=== PATIENT | female | born 1950 | race Caucasian/White ===

== ENCOUNTER 2020-07-26 09:54 | Day surgery (SDC) | payer MEDICARE, SELFPAY ==
[2020-07-10 13:29] VITALS: BMI 21.4
[2020-07-14 14:13] VITALS: BMI 22.0
[2020-07-24 08:47] VITALS: BMI 21.3
[2020-07-26] VITALS (8 sets, daily range): BP systolic 109–133; BP diastolic 67–86; PULSE 56–107; RESP 16; TEMP 36.2–36.5; O2SAT 98–100; BMI 21.1
[2020-07-26] MEDS: Lactated Ringers 1,000 ML 100 ML IV (10:18)
--- NOTE | 2020-07-26 11:14 | PCM.HP.BLA ---
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 Required: No Accompanied by: Is patient in pain?: No Allergies Penicillins [PCN] Allergy (Verified 07/14/20 14:15) Rash gluten Adverse Reaction (Verified 07/14/20 14:15) Diarrhea milk Adverse Reaction (Verified 07/14/20 14:15) Diarrhea Medications Aspirin [Aspirin, Baby] 81 mg PO DAILY@0800 07/10/20 [History Confirmed 07/14/20] Psyllium [Metamucil] 1 packet PO DAILY 07/10/20 [History Confirmed 07/14/20] PFSH Medical History Carpal tunnel syndrome on right (Acute) Gluten intolerance (Acute) Tongue cancer (Acute) Surgical History H/O tubal ligation (Acute) Family History Mother Heart disease Colon cancer Sister Gallbladder cancer, carcinoma Father Diabetes Social History (Updated 07/14/20 @ 14:[address] Keshawn Cisneros MD) Smoking Status: Never smoker HPI HPI HPI: SHERLYN RODRIGUEZ, is a 70 F who presents to the office today for HPI HPI HPI: SHERLYN RODRIGUEZ, is a 70 F who presents to the office today for PEG discussion. The patient has had a hemiglossectomy for tongue cancer and is due to start radiation. She was sent here for PEG tube in case she develops dysphagia during her treatment. ROS General General: Yes weight change; no appetite, fatigue, colon cancer, breast cancer or weakness HEENT HEENT: Yes difficulty swallowing, eye surgery and swollen glands; no eye injury or hoarseness Endo Endocrine: Yes thyroid disease; no diabetes mellitus, thyroid cancer, Hair loss, heat intolerance or cold intolerance Skin Skin: No rash or changing moles Breast Breast: No left breast lump, right breast lump, nipple discharge, breast pain, abnormal mammogram, abnormal US or breast enlargement Musc Musculoskeletal: No back problems, arthritis, rheumatoid arthritis, gout or joint pain Cardio Cardiovascular: No murmur, pacemaker, heart disease, atrial fibrillation, high blood pressure, heart attack, heart stent, palpitations, shortness of breat with exertion or chest pain Psych Psychiatric: No depression, anxiety or hearing voices Resp Respiratory: No shortness of breath, No sleep apnea, No cough, No COPD, No asthma, No emphysema, No wheezing Gastro Gastrointestinal: No abdominal pain, No nausea or vomiting, No diarrhea, No constipation, No blood in stool, No acid reflux, Yes hemorrhoids, No ulcers, No gallbladder problem, No black,tarry stools Chase Hematologic: No blood thinners, No blood disorders, No bleeding, Yes anemia, No blood clots Neuro Neurologic: No system reviewed and no additional complaints, except as docu, No as per HPI, No abnormal walking, No abnormal hearing, No abnormal movements, No abnormal speech, No behavioral changes, No burning sensations, No confusion, No seizure-like activity, No unsteadiness, No dizziness, No localized weakness, No frequent falls, No headache(s), No lack of coordination, No loss of vision, No memory loss, No numbness, No other visual disturbances, No radiating pain, No restless legs, No sensory deficit, No fainting, No tingling, No tremor(s), No weakness, No other Exam Const General: cooperative Orientation: alert, oriented x3 Chest Breast Palpation: No nipple discharge Resp Effort & Inspection: normal respiratory effort Auscultation: clear to auscultation bilaterally Cardio Rate: regular rate Rhythm: regular rhythm Heart Sounds: no murmurs GI Inspection: non-distended Palpation: soft, nontender Assessment & Plan Problems 1. Tongue cancer C02.9 Plan Patient has tongue cancer and is going to start radiation after having surgery. Patient was sent here for discussion of PEG tube. I discussed the placement of PEG tube as well as the presence and removal of PEG tube. I discussed the risks of the procedure including not limited to bleeding, infection, underlying bowel injury, dislodgment of PEG tube. The patient understands all the risks and is willing to proceed with PEG placement. I explained endoscopy in detail to the patient. I explained the risks including but not limited to stroke or heart attack with anesthesia, perforation of the GI tract, bleeding, infection. I explained that any of these could necessitate further emergency surgery. The patient understands and all questions were answered sufficiently. The patient wishes to proceed with procedure. We discussed the current risks associated with COVID-19. While it is understood that there is a community spread of COVID-19, the risk of gaetano COVID-19 while at [facility] ([facility]) is very low; however, the risk cannot be completely mitigated because of the community spread of the disease. We discussed in detail the risk of exposure to and/or potential harm posed by the COVID-19 virus with having a surgery/procedure at this time versus the risk of delaying the surgery/procedure. It is not possible to know either the risk of delaying the surgery or procedure or chance of getting an infection with perfect accuracy, but a joint decision was made to proceed at this time with the scheduled surgery/procedure as indicated on the consent form. Patient was notified that we will need to comply with any screening or testing [facility] wishes to perform or that surgery may be delayed for any positive results. Keshawn Cisneros MD Pager: [facility] [address] [place] [address], [address] [place] [address] Office: I have re-examined the patient. There are no clinical changes since date of exam.
--- NOTE | 2020-07-26 11:18 | OP.CCLET_ITS ---
07/26/2020 Benigno Brandt Re : Upper GI endoscopy procedure for Kay Herring Dear Karly This procedure was performed on Sunday, July 26, 2020. My impressions and recommendations are as follows: Impressions : - An externally removable PEG placement was successfully completed. - No specimens collected. Recommendations : - Discharge patient to home. - Resume previous diet. - Continue present medications. - Resume aspirin at prior dose tomorrow. - Please follow the post-PEG recommendations including: external bolster 1 cm from abdominal wall and change dressing on top of bumper daily. My findings are described in the full procedure note, which is enclosed. If I can be of further assistance, please feel free to contact me at Doctor phone number(s): , Work: . Sincerely, Keshawn Cisneros MD 07/26/2020 11:18:11 AM This report has been signed electronically.
--- NOTE | 2020-07-26 11:18 | OP.EGD_ITS ---
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 Refer to note in patient chart for documentation of history and physical. Complications: No immediate complications. Estimated blood loss: Minimal. Procedure: Pre-Anesthesia Assessment: - Prior to the procedure, a History and Physical was performed, and patient medications and allergies were reviewed. The patient's tolerance of previous anesthesia was also reviewed. The risks and benefits of the procedure and the sedation options and risks were discussed with the patient. All questions were answered, and informed consent was obtained. Prior Anticoagulants: The patient has taken no previous anticoagulant or antiplatelet agents. After reviewing the risks and benefits, the patient was deemed in satisfactory condition to undergo the procedure. After obtaining informed consent, the endoscope was passed under direct vision. Throughout the procedure, the patient's blood pressure, pulse, and oxygen saturations were monitored continuously. The gastroscope was introduced through the mouth, and advanced to the second part of duodenum. The upper GI endoscopy was accomplished without difficulty. The patient tolerated the procedure well. Scope In: 11:03:59 AM Scope Out: 11:12:43 AM Total Procedure Duration Time 0 hours 8 minutes 44 seconds Findings: The patient was placed in the supine position for PEG placement. The stomach was insufflated to appose gastric and abdominal granados. A site was located with excellent transillumination and manual external pressure for placement. The abdominal wall was marked and prepped in a sterile manner. The area was anesthetized with 5 mL of 0.5% lidocaine. The trocar needle was introduced through the abdominal wall and into the stomach under direct endoscopic view. A snare was introduced through the endoscope and opened in the gastric lumen. The guide wire was passed through the trocar and into the open snare. The snare was closed around the guide wire. The endoscope and snare were removed, pulling the wire out through the mouth. A skin incision was made at the site of needle insertion. The externally removable 20 Fr EndoVive Safety gastrostomy tube was lubricated. The G-tube was tied to the guide wire and pulled through the mouth and into the stomach. The trocar needle was removed, and the gastrostomy tube was pulled out from the stomach through the skin. The external bumper was attached to the gastrostomy tube, and the tube was cut to remove the guide wire. The final position of the gastrostomy tube was confirmed by relook endoscopy, and skin marking noted to be 3 cm at the external bumper. The final tension and compression of the abdominal wall by the PEG tube and external bumper were checked and revealed that the bumper was loose and lightly touching the skin and that the PEG balloon was moderately tight and mildly compressing the stomach. The feeding tube was capped, and the tube site cleaned and dressed. Impression: - An externally removable PEG placement was successfully completed. - No specimens collected. Recommendation: - Discharge patient to home. - Resume previous diet. - Continue present medications. - Resume aspirin at prior dose tomorrow. - Please follow the post-PEG recommendations including: external bolster 1 cm from abdominal wall and change dressing on top of bumper daily. 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 All rights reserved. The codes documented in this report are preliminary and upon head sampler review may be revised to meet current compliance requirements. Keshawn Cisneros MD 07/26/2020 11:18:11 AM This report has been signed electronically. Number of Addenda: 0 Note Initiated On: 07/26/2020 10:54 AM
[2020-07-26] MEDS: Acetaminophen 650 MG/20 ML UDC PO (12:52)
--- NOTE | 2020-07-26 12:52 | SUR.PHASEII ---
pt. with acute onset of l.shoulder pain which occurs at home per pt. and . massaged area as he does at home. liquid tylenol given by rn. pt. sitting up in chair at this time.
== END 2020-07-26 13:51 | disposition home or self-care (01) ==
LOC: EN 09:55 → AC 09:55
PROVIDERS: Anesthesiology; PCP Internal Medicine; Referring Provider Internal Medicine; Visit Provider Surgery
PROC: 0DJ08ZZ Inspection of Upper Intestinal Tract, Via Natural or Artificial Opening Endoscopic (ICD-10-PCS; CPT 43235; principal; 2020-07-26 10:55)
DX: Z43.1 Encounter for attention to gastrostomy (principal); R13.12 Dysphagia, oropharyngeal phase; Z11.59 Encounter for screening for other viral diseases; R63.3 Feeding difficulties; Z79.82 Long term (current) use of aspirin; Z79.899 Other long term (current) drug therapy; C02.9 Malignant neoplasm of tongue, unspecified; K90.41 Non-celiac gluten sensitivity
CPT/HCPCS: 43246; 87635; 97802; C9803; J7120; A4216; U0003

== ENCOUNTER → 2020-11-01 12:38 | Outpatient (CLI) | payer MEDICARE, SELFPAY ==
[2020-07-10 13:29] VITALS: BMI 21.4
[2020-09-25 08:28] VITALS: BMI 20.1
--- NOTE | 2020-11-01 18:20 | SP.MBSS_ITS ---
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 09/06/2020) with concurrent weekly carboplatin. 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 09/06/2020) with concurrent weekly carboplatin. status post percutaneous endoscopic gastrostomy (PEG) tube placement (07/24/2020), status post tracheostomy tube placement (06/19/2020; since removed), status post esophagoscopy, left forearm flap reconstruction, split thickness skin graft, gluten intolerance, cataract removal, carpal tunnel syndrome on right - Penetration-Aspiration Scale Penetration-Aspiration Scale: OBJECTIVE ASSESSMENT OF SWALLOW FUNCTION (QUANTITATIVE ? PER TRIAL): PENETRATION / ASPIRATION SCALE (RANKIN): 1 = does not enter airway 2 = enters airway/above vocal folds/ejected 3 = enters airway/above vocal folds/not ejected 4 = enters airway/contacts vocal folds/ejected 5 = enters airway/contacts vocal folds/not ejected 6 = enters airway/below vocal folds/ejected 7 = enters airway/below vocal folds/not ejected despite effort 8 = enters airway/below vocal folds/no effort VIDEOFLOROSCOPIC SCALE SCORE (RANKIN): Grade I = aspiration of material that has penetrated into the laryngeal vestibule, intact cough reflex Grade II = aspiration < 10 % of the bolus, intact cough reflex Grade III = aspiration of < 10 % of the bolus, reduced cough reflex or aspiration of > 10 % of the bolus, intact cough reflex Grade IV = aspiration of > 10 % of the bolus, reduced cough reflex PENETRATION / ASPIRATION SCALE (SCORE) WITH VIDEOFLOROSCOPIC SCALE SCORE: Thin liquid - 5 mL tsp.: 1 Thin liquids via straw (single): 2 Thin liquids via straw (single): 3 Thin liquids via straw (single): 2 Thin liquids via straw (chin tuck): 6 ? Grade III Thin liquids via straw (chin tuck): 5 Pudding via spoon: 1 Thin liquids via straw (single): 2 Thin liquids via straw (single): 2 - Oral Phase Labial Seal: Escape beyond mid-chin Tongue Control During Bolus Hold: Posterior escape of greater than half of bolus Bolus Transport/Lingual Motion: Brisk tongue motion Oral Residue: Residue collection on oral structures - Pharyngeal Phase Initiation of Pharyngeal Swallow: Bolus head at posterior laryngeal surgace of epiglottis Soft Palate Elevation: No bolus between soft palate and pharyngeal wall Laryngeal Elevation: Partial superior movement thyroid cart/partial apprx aryt- epig petiole Anterior Hyoid Excursion: Partial anterior movement Epiglottic Movement: Partial inversion Laryngeal Vestibule Closure at Height of Swallow: Incomplete; narrow column of air/contrast in laryngeal vestibule Pharyngeal Stripping Wave: Present - diminished Pharyngoesophageal Segment Opening: Minimal distension and minimal duration; marked obstruction of flow Tongue Base Retraction: Wide column of contrast between tongue base & post. 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 She does tend to consolidate semisolid residue on the left though she does appear to manage this well. Her pharyngeal phase is marked by a mild reduction in hyolaryngeal excursion and duration resulting in inconsistent laryngeal vestibule pressure generated to fully expel penetrated material. She demonstrates a milder pharyngeal dysmotility primarily with more viscous textures, with noted consolidation within the valleculae attributed to restricted tongue based retraction and superior posterior pharyngeal stripping wave action, with further restrictions with pharyngoesophageal segment relaxation (though with less functional effect). There was an absent cough response to tracheal aspiration suggesting dystussia (though aspiration was scant and transient in nature, with limited inferior movement from the vocal folds). Noted surgical deisy throughout the laryngeal vestibule and pharyngeal arena that at times did complicate visualization of the laryngeal vestibule. She does demonstrate difficulties with mastication during clinical examinations, though unfortunately solid texture were held this date due to her gluten intolerance and no appropriate substitute solid available All of her deficits were managed successfully with bolus rate / volume adjustments, and considerations for diet texture adjustments; negative effects were noted during execution of the chin tuck posture (pre-prandial aspiration). It would be beneficial to continue to monitor her pharyngeal contraction and laryngeal valving moving forward, as this would represent the most likely area that can be impacted by post irradiation dysphagia (this can occur multiple years following irradiation). - Recommendations Comment: DIET TEXTURE RECOMMENDATIONS: mechanical soft textured (IDDSI: 5), thin liquid diet (IDDSI: 0) diet RECOMMENDED COMPENSATORY STRATEGIES: cut tougher textures into bite sized pieces as she advances to a more soft-solid diet, reduced bolus volume / rate of ingestion, liquid chaser at reasonable intervals, consider using straws with all liquids, seated upright at 90 degrees during PO intake, remain upright for 30-60 minutes post meal (GERD precaution), medications one at a time with a liquid chaser; enteral supplementation as needed during transition to full PO diet. Recommend Repeat Modified Barium Swallow: Yes Need for Skilled Speech Therapy Services: Yes Education Completed: 1. Described result of evaluation., 2. Pt understands evaluation & agrees with goals and treatment plan., 7. Pt requires further education on strategies & risks. - Image Count: 1,[phone] - Status Active ST Patient: Active
== END ==
PROVIDERS: PCP Internal Medicine; Referring Provider Student in an Organized Health Care Education/Training Program; Visit Provider Student in an Organized Health Care Education/Training Program
DX: R13.12 Dysphagia, oropharyngeal phase (principal)
CPT/HCPCS: 74230; 92611

== ENCOUNTER 2021-03-01 08:30 | Outpatient (RCR) | payer MEDICARE, SELFPAY ==
[2020-07-10 13:29] VITALS: BMI 21.4
[2020-07-14 14:13] VITALS: BMI 22.0
[2020-07-24 08:47] VITALS: BMI 21.3
--- NOTE | 2020-07-26 09:00 | SOAP_ITS ---
REASON FOR REFERRAL: The Patient is a pleasant 70 year old female referred for a clinical assessment of the swallow function at 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 She also reports she must utilize a digital sweep to clear food from the left oral cavity due to the restriction in lingual movements and left sided hypoesthesia following her left hemiglossectomy. She also has had difficulty utilizing bottles and occasionally straws following the hemiglossectomy. She denies sensations of bolus stasis, denies sensation of nasopharyngeal reflux. She reports an unintentional weight loss of about 15 lb. leading up to the start of chemoradiation (baseline ~119 lbs). She denies any issues with appetite, early satiety (feeling full after few bites), inanition, nausea, emesis. She recently was utilizing a nasogastric tube earlier this month, though this has since been discontinued; percutaneous endoscopic gastrostomy (PEG) tube to be placed later today (07/26/2020). She reports occasional diurnal sialorrhea (drooling during the daytime, SSS: 4). She denies issues with xerostomia (dry mouth). She denies issues with hypogeusia (reduced taste), dysgeusia (abnormal / unpleasant taste), cacogeusia (strongly revolting taste), ageusia (absence of taste), or hyposmia (reduced smell). She reports some restriction in mandibular movement suggesting trismus. She denies odynophagia (pain during swallow). She denies issues with reflux / heartburn, globus sensation, post prandial substernal discomfort, or feelings of bolus stasis. She denies any suboptimal intake behaviors (tachyphagia, bolus bolting, or aerophagia). She denies any current or previous issues with aspiration related pulmonary complications, to include pneumonia, bronchitis, or unexplained asthma symptoms. 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 The Patient is fully ambulatory, no difficulties with posture maintenance, and appears slightly under nourished. 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 She lives with her , with her son, daughter, and sister in close proximity. 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 status post tongue biopsy (03/16/2020), neoadjuvant chemotherapy consisting of 3 cycles of TPF (04/20/2020 - 06/01/2020), and left hemiglossectomy with left selective neck dissection levels 1A through 4 (06/19/2020), currently undergoing irradiation (07/24/2020) with concurrent weekly carboplatin, status post percutaneous endoscopic gastrostomy (PEG) tube placement (07/24/2020), status post tracheostomy tube placement (06/19/2020; since removed), status post esophagoscopy, left forearm flap reconstruction, split thickness skin graft, gluten intolerance, cataract removal, carpal tunnel syndrome on right PREVIOUS MODIFIED BARIUM SWALLOW STUDY: Completed at [facility] in mid-June; results not available at this time, reports she was advanced to thin liquids following completion. 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 ECOG PERFORMANCE STATUS SCORE: ECOG SCORE: 0-1 SCORE CRITERIA: asymptomatic; symptomatic but completely ambulatory SCORE DESCRIPTION: restricted in physically strenuous activity but ambulatory and able to carry out work of a light or sedentary nature. For example, light housework, office work. FUNCTIONAL AMBULATION CATEGORY (FAC): FAC SCORE: 5 (of 5) FAC DESCRIPTION: ambulator- independent; subject can ambulate independently on nonlevel and level surfaces, stairs, and inclines. SUPPLEMENTARY DYSPHAGIA ASSESSMENT RESULTS (SCALES / PROM): WORLD HEALTH ORGANIZATION (WHO) ORAL MUCOSITIS SCALE: SCALE GRADE: grade 0 GRADE DESCRIPTION: no objective findings, function irrelevant RTOG RADIATION MORBIDITY SCORING CRITERIA FOR XEROSTOMIA: ACUTE REACTIONS: grade 0 GRADE DESCRIPTION: no chemical cell changer baseline SIALORRHEA SCORING SCALE (SSS): SSS SCORE: 4 (of 9) SSS DESCRIPTION: moderate, wet on the lips and chin, occasionally SCALE OF SUBJECTIVE TOTAL TASTE ACUITY (STTA): STTA GRADE: grade 0 STTA DESCRIPTION: same taste acuity as before treatment INTER-INCISOR DISTANCE (IID) AVERAGE IID: 3.8 cm IID GRADE: grade I IID GRADE DESCRIPTION: inter-incisor distance equal to or more than 3 cm PERFORMANCE STATUS SCALE FOR HEAD & NECK CANCER PATIENTS (PSS-HN): NORMALCY OF DIET: 50 ? soft chewable foods PUBLIC EATIN ? eats only in the presence of selected persons in selected places UNDERSTANDABILITY OF SPEECH: 75 ? understandable most of the time PSS-HN TOTAL SCORE: 175/300 TOTAL DYSPHAGIA RISK SCORE (TDRS): T-CLASSIFICATION: 4 (T3 or T4) WEIGHT LOSS BASELINE: 5 (1-10%) CONCOMITANT CHEMORADIATION: 5 (yes) ACCELERATED RADIOTHERAPY: 0 (no) BILATERAL NECK IRRADIATION: 9 (yes) PRIMARY TUMOR SITE: 7 (oropharynx) TDRS RISK SCORE: 30 TDRS RISK CATEGORY: high risk (TDRS > 18) grade >II swallowing dysfunction RTOG/EORTC ORAL MOTOR / MODIFIED CRANIAL NERVE ASSESSMENT: TRIGEMINAL NERVE (CNV): appears grossly intact FACIAL NERVE (CNVII): abnormal; mild left facial asymmetry upon retraction; left labial asymmetry at rest, upon retraction, upon protrusion GLOSSOPHARYNGEAL NERVE (CNIX): appears grossly intact VAGUS NERVE (CNX): appears grossly intact HYPOGLOSSAL NERVE (CNXII): abnormal; impaired left sided lingual strength, suboptimal left sided lingual mobility LABIAL STRUCTURES: some restricted movement along the left lower lip LINGUAL STRUCTURES: status post left hemiglossectomy; restricted movement; discoloration (normal) ORAL SENSITIVITY AND PALATAL STRUCTURES:left sided intraoral hypoesthesia (numbness) status post left hemiglossectomy MANDIBULAR FUNCTIONING: mild restriction in mandibular movement / opening suggesting trismus, with an Inter-Incisor Distance (IID) of 3.8 cm (grade I) DENTITION: natural upper / lower dentition in sufficient repair SALIVATION: occasional diurnal sialorrhea (drooling during daytime) proceeding to the lips and chin; intermittent xerostomia (dry mouth) COUGH SUFFICIENCY: reduced volitional cough intensity possibly suggesting dystussia VOCAL QUALITY: moderate dysarthria with mild dysphonia (abnormal vocal quality) CLINICAL ASSESSMENT OF SWALLOW FUNCTION (QUANTITATIVE): REPETITIVE SALIVA SWALLOWING TEST (RSST): RSST RESULT: pass RSST DESCRIPTION: able to elicit 2 dry swallows within 30 seconds. ZAVALETA ASSESSMENT OF SWALLOWING ABILITY ? CANCER (MASA-C): MASA ASPIRATION SEVERITY SCORE: 156 MASA SEVERITY SCORE DESCRIPTION: severe impairment MASA-C DYSPHAGIA RISK RATING: definite; strong evidence for disorder CLINICAL ASSESSMENT OF SWALLOW FUNCTION (SEVERITY GRADING): SWALLOWING PERFORMANCE SCALE (SPS): SPS SCORE: 5 (of 7) SPS SEVERITY: moderate SPS SCORE DESCRIPTION: moderate dysfunction in oral or pharyngeal stage: aspiration noted on examination; requires modified diet and swallowing precautions to minimize risk of aspiration INTERVENTION CONSIDERATIONS AND RECOMMENDATIONS: I will recommend a repeat modified barium swallow study within 1-2 months post chemoradiation to further assess the Patients oropharyngeal swallow function and identify any post radiation changes in the oropharyngeal physiology, as the patient is at higher risk for continual changes and possible decline in swallow functioning / dysphagia severity throughout the chemoradiation intervention cycle; and would benefit from continued monitoring and treatment plan adjustments as necessary. I cannot definitively rule out silent aspiration at bedside. I would also consider earlier completion of a repeat modified barium swallow study if silent aspiration is suspected at current diet levels. RECOMMENDATIONS FOR INTERVENTION: The Patient requires intensive skilled speech-language intervention targeting diet texture management and training / implementation of recommended compensatory strategies; training and implementation of a Trismus based exercise program to promote improved (annika-irradiation) and sustained (post- irradiation) mandibular functioning; development, training and implementation of a home based prophylactic swallowing exercise program to promote the highest level of preserved post-irradiation swallow functioning; training and implementation of a home oral care protocol to reduce the effects of xerostomia and improve / maintain the integrity of the oral mucosa reducing the risk of aspiration related pulmonary complications; Patient / caregiver education regarding annika and post-irradiation dysphagia and associated symptomology; with recommendations for further diagnostic assessment of the swallow function under fluoroscopy via Modified Barium Swallow (MBS) study; with goal adjustment as clinically indicated. POST ASSESSMENT EDUCATION: The results and recommendations were discussed with the Patient immediately following completion of the assessment, with the Patient verbalizing understanding and agreement with all recommendations and education provided. We discussed the Patients elevated risk for continual changes and possible decline in both swallow functioning / dysphagia severity and cognitive communication functioning throughout the chemoradiation intervention cycle; the Patient would benefit from continued monitoring across all domains throughout irradiation therapy including post irradiation. We discussed recommendations for prophylactic oropharyngeal strengthening / range of motion exercises to reduce the effects of annika and post radiation induced oropharyngeal dysphagia associated with head and neck cancer, with handouts provided outlining the recommended exercises; further / continual training is highly indicated to ensure proper execution and maintenance to the program. We discussed recommendations for mandibular range of motion stretching and exercise to reduce the effects of trismus and facilitate improved / maintained mandibular functioning, with handouts provided outlining the recommended exercises; further / continual training is indicated to ensure proper execution and maintenance to the program. I provided reinforcement of prior Patient and family education regarding the importance of oral care throughout the irradiation process and post- irradiation, with recommendations for an aggressive oral care program that includes pre-rinse use prior to water intake; routine oral care in the a.m., prior to oral intake, after oral intake, and prior to bed via toothbrush / swab / rinse; use salt/ soda water gargles during 5-6 times a day during radiation therapy, with frequent dental checkups post-irradiation. We discussed factors impacting effects of aspiration, to include: the quantity of aspiration, the depth of aspiration (trachea or distal airways), and the physical properties of the aspirate. We discussed consequences of oropharyngeal dysphagia, to include pulmonary complications from tracheobronchial aspiration; potential for airway obstruction / asphyxiation; inadequate oral intake because of dysphagia; reduced liquid intake resulting in dehydration; reduced caloric intake resulting in unintentional and potentially medically complicating loss of weight; impairment in mental and physical condition to include depression and deterioration in the quality of life. higher risk for social isolation / anxiety / depression, increased disability rates, and lengthening of healing; complications in overall course of care with later discharge from acute admissions / increased length of hospitalizations, increased likelihood for discharge to longterm, and overall worse rehabilitation outcomes; and increased risk for mortality / . We discussed benefits and risks associated with alternative means of nutrition, with increased access to caloric supplementation and reduce hydration deficits, in addition to possible reduction in stress associated with mealtimes, though nasogastric / gastrostomy feeding does not significantly reduce aspiration risk and may lead to reduced quality of life, disrupted sleep patterns, and stoma site infections. DIET TEXTURE RECOMMENDATIONS: Will recommend a pureed textured (IDDSI: 4), thin liquid diet (IDDSI: 0) diet RECOMMENDED COMPENSATORY STRATEGIES: Supplementation via established alternate routes (percutaneous endoscopic gastrostomy tube) as needed, reduced bolus volume / rate of ingestion, liquid chaser at reasonable intervals, seated upright at 90 degrees during PO intake, remain upright for 30-60 minutes post meal (GERD precaution), medications one at a time vs. crushed with purees. FUNCTIONAL OUTCOMES: OUTCOME 1: the Patient will tolerate the least restrictive means of nutrition to facilitate adequate hydration / nutrition with optimum safety and efficiency of swallowing function during P.O. intake without overt signs and symptoms of aspiration. OUTCOME 2: the Patient will demonstrate and utilize recommended mandibular range of motion stretching and exercise within the Patients clinical and home based program to improve and maintain overall mandibular functioning and oral preparatory functioning reducing the effects of trismus, with minimal cueing and prompting provide by the clinician, across 2 out of 3 sessions. OUTCOME 3: the Patient will demonstrate and utilize recommended oropharyngeal range of motion exercise within the Patients clinical and home based program to improve and maintain overall oropharyngeal functioning and reducing the effects of post-irradiation dysphagia, with minimal cueing and prompting provide by the clinician, across 2 out of 3 sessions. OUTCOME 4: the Patient will participate in a home based oral care program established during intervention sessions to facilitate improved and maintained integrity of the oral mucosa throughout the irradiation process with complete independence. OUTCOME 5: the Patient will participate in continual Patient / Patient caregiver education regarding annika and post-irradiation dysphagia and associated symptomology to facilitate improved awareness and insight into the Patients current and anticipated dysphagia related complications and potential impact on the Patients overall medical stability. OUTCOME 6: the Patient will participate in a repeat Modified Barium Swallow (MBS) study to objectively assess the Patient?s oropharyngeal swallowing function (when clinically appropriate),to determine the least restrictive means of nutrition, to objectively assess the effectiveness of previously identified strategies / precautions, and to identify appropriate intervention approaches / strategies to implement during treatment sessions at the supervised level. OUTCOME 7: goal adjustment as needed Edwar Wick M.A., CCC-SANDER MACHINE, CBIS MBSImP Certified, LSVT Certified [facility] Speech-Language Pathology Department Email: [email or web address]
== END 2021-03-01 19:00 | disposition home or self-care (01) ==
LOC: SP 08:30
PROVIDERS: PCP Internal Medicine; Referring Provider Student in an Organized Health Care Education/Training Program; Visit Provider Student in an Organized Health Care Education/Training Program
DX: C02.9 Malignant neoplasm of tongue, unspecified (principal)
CPT/HCPCS: 92526; 92610

== ENCOUNTER → 2021-05-03 12:57 | Outpatient (CLI) | payer MEDICARE, SELFPAY ==
[2020-07-10 13:29] VITALS: BMI 21.4
[2020-12-25 11:04] VITALS: BMI 19.1
--- NOTE | 2021-05-03 13:51 | SP.MBSS_ITS ---
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 09/06/2020) with concurrent weekly carboplatin. status post percutaneous endoscopic gastrostomy (PEG) tube placement (2019), status post tracheostomy tube placement (06/19/2020; since removed), stat us post esophagoscopy, left forearm flap reconstruction, split thickness skin graft, gluten intolerance, cataract removal, carpal tunnel syndrome on right Current Diet Ordered: soft with thin liquids Dentition: Natural Teeth - some missing - Study Findings Consistencies: Thin Liquid, [place] Thick Liquid, Honey Thick Liquid, Pudding, Cookie - Penetration-Aspiration Scale Penetration-Aspiration Scale: OBJECTIVE ASSESSMENT OF SWALLOW FUNCTION (QUANTITATIVE ? PER TRIAL): PENETRATION / ASPIRATION SCALE (RANKIN): 1 = does not enter airway 2 = enters airway/above vocal folds/ejected 3 = enters airway/above vocal folds/not ejected 4 = enters airway/contacts vocal folds/ejected 5 = enters airway/contacts vocal folds/not ejected 6 = enters airway/below vocal folds/ejected 7 = enters airway/below vocal folds/not ejected despite effort 8 = enters airway/below vocal folds/no effort - Penetration-Aspiration Scale Score Thin Liquid via teaspoon Result: 1= does not enter airway Thin Liquid via teaspoon Trial 2 Result: 2= enter airway/above vocal folds/ejected Thin Liquid via small single sip from cup Result: 4= enters airway/contacts vocal folds/ejected Thin Liquid via sequential sips from cup Result: 2= enter airway/above vocal folds/ejected Thin Liquid via single sip from straw Result: 4= enters airway/contacts vocal folds/ejected [place] Thick Liquid via small single sip from cup Result: 2= enter airway/above vocal folds/ejected Honey Thick Liquid via small single sip from cup Result: 1= does not enter airway Pudding via teaspoon Result: 1= does not enter airway Cookie via teaspoon Result: 1= does not enter airway Comment: Pt. able to swallow cookie with out aspiration or penetration, however, cookie was swallowed whole and became stuck in laryngeal vestibule just below the airway. Pt. required multiple thin liquid swallows to clear from vestibule, but bolus remained in esophagus with scan Thin Liquid via sequential sips from straw Chin tuck Result: 2= enter airway/above vocal folds/ejected - Oral Phase Labial Seal: Interlabial escape, no progression to anterior lip Tongue Control During Bolus Hold: Posterior escape of greater than half of bolus Bolus Preparation/Mastication: Minimal chewing/mashing with majority of bolus unchewed Bolus Transport/Lingual Motion: Minimal to no tongue motion Oral Residue: Residue collection on oral structures - Pharyngeal Phase Initiation of Pharyngeal Swallow: Bolus head in pyriforms Soft Palate Elevation: No bolus between soft palate and pharyngeal wall Laryngeal Elevation: Partial superior movement thyroid cart/partial apprx aryt- epig petiole Anterior Hyoid Excursion: Partial anterior movement Epiglottic Movement: Partial inversion Laryngeal Vestibule Closure at Height of Swallow: Incomplete; narrow column of air/contrast in laryngeal vestibule Pharyngeal Stripping Wave: Present - diminished Pharyngoesophageal Segment Opening: Complete distension and complete duration; no obstruction of flow Tongue Base Retraction: Narrow column of contrast between tongue base & post. pharyngeal wall Pharyngeal Residue: Minimal to no pharyngeal clearance - cookie remained in laryngeal vestibule with no clearance except after multiple swallow with thin liquids, other consistencies presented with trace residue - Esophageal Phase Esophageal Clearance: Esophageal retention - cookie bolus still present in esophagus at end of study with esophageal scan - Diagnosis/Impression Diagnosis: moderate-severe oropharyngeal dysphagia Impression: Pt. presents with moderate to severe orophayrngeal dysphagia. Oral phase is marked by decreased labial seal, bolus control/hold, lingual motion, mastication and anterior-position transit. Pharyngeal phase is marked by decreased tongue based retraction, laryngeal elevation, hyolaryngeal excursion, pharyngeal constriction and epiglottic deflection. These resulted in posterior laryngeal pooling, penetration with thin liquids and cookie becoming stuck in the lar yngeal vestibule. Pt. presented with no aspiration and cookie was cleared with multiple thin liquids washes. - Recommendations Comment: minced moist textures (IDDSI 5) with thin liquids (IDDSI 0) Compensatory Strategies: Small Bites, Small Sips, No Straws, Multiple Swallows, Alternate bites/solids and sips/liquids, Sitting upright, Remain sitting upright for 30 minutes after PO intake Supervision: Distant Supervision Recommend Repeat Modified Barium Swallow: TBD - follow up MBS recommended with increased difficulty with swallowing or as clinically recommended by [employer] Need for Skilled Speech Therapy Services: Yes - Recommend pt. to continue with outpatient ST Recommended Referrals: GI Consult - due to cookie bolus remaining in esophagus during study, as determined by [employer] after outpatient tx is continued Education Completed: 1. Described result of evaluation., 2. Pt understands evaluation & agrees with goals and treatment plan. Comment: Pt. educated on recommendation for IDDSI [address] - Status Active ST Patient: Active - Contact Information [facility] Speech Therapy:: Mihaela Arvizu M.A. [facility] [address] [place] [address] [email or web address]
== END ==
PROVIDERS: PCP Internal Medicine; Referring Provider Student in an Organized Health Care Education/Training Program; Visit Provider Student in an Organized Health Care Education/Training Program
DX: C06.9 Malignant neoplasm of mouth, unspecified (principal)
CPT/HCPCS: 74230; 92611

== ENCOUNTER 2021-12-17 09:00 | Outpatient (RCR) | payer MEDICARE, SELFPAY ==
[2020-07-10 13:29] VITALS: BMI 21.4
--- NOTE | 2021-07-04 16:02 | HP.SP.AD_ITS ---
History - History Date of Eval: 07/04/21 Medical Diagnosis (from RX): oropharyngeal dysphagia Previous speech therapy: Yes Results: Modified Barium Swallow Study 11/01/2020 - mild to moderate oropharyngeal dysphagia; diet recommended - mechanical soft textures/thin liquids - compensatory strategies recommended - cut tougher textures into bite sized pieces as she advances to a more soft-solid diet, reduced bolus volume / rate of ingestion, liquid chaser at. reasonable intervals, consider using straws with all liquids, seated upright at 90 degrees during PO intake, remain upright for 30-60 minutes post meal (GERD precaution), medications one at a time with a liquid chaser; enteral supplementation as needed during transition to full PO diet. 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 From 07/24/2020 - 09/06/2020 she received adjuvant chemoradiation. Additional History: Carpal tunnel syndrome on right, Gluten intolerance Medications related to this diagnosis: Radiation Treatment History: From 07/24/2020 - 09/06/2020: Received 6600 cGy delivered to left neck level 2 and surrounding areas concerning for puneet extracapsular extension on initial imaging, 5940 cGy delivered to the postoperative bed and entire oral tongue as well as the remaining left neck from high level 2 through level 4, and 5412 cGy delivered to the right neck levels 2 through 5 and bilateral supraclavicular fossa. Treatment was delivered in 33 fractions with concurrent weekly carboplatin. Smoking Status: Never smoker Hx Smoking: No - Pain Is pain an issue with your current prescribed condition?: No - Personal Right Hearing Abillity: Normal Left Hearing Abillity: Normal Visual Assistive Devices: Glasses, Magnifying Glass Patients Living Arrangements: With Significant Other Patient Allergies - Allergies Allergies Penicillins [PCN] Allergy (Verified 06/28/21 08:43) Rash diazepam [From Valium] Adverse Reaction (Verified 06/28/21 08:43) Vomiting gluten Adverse Reaction (Verified 06/28/21 08:43) Diarrhea milk Adverse Reaction (Verified 06/28/21 08:43) Diarrhea Objective Oral Motor - Oral Status Dentition: Missing Teeth - Labial Impairment: Moderate Observation at Rest: Left Droop Closure: Drooling Pucker: Mild Retraction: Mild - Lingual Impairment: Severe Protrusion: Severe Retraction: Moderate Lateralization: Severe - Jaw Impairment: WNL Symmetry, Range, Strength, Tone: adequate jaw ROM w/out evidence of trismus at this time Objective Dysphagia - Administered by Administered by: Self - Thin Liquids Administred via: Cup Laryngeal Elevation: Impaired Oral Holding: No Gagging: No Comments: impaired labial seal w/ post-prandial bolus leakage - Mechanical Soft Impaired Mastication: Yes Patient Report: Difficulty chewing solids - primarily chews on R side d/t improved sensation w/ residual tongue but only has one upper and 2 lower teeth present on R. Comments: Assessed w/ jello - no overt s/s aspiration, mild post-prandial oral residue - Results Swallowing Within Normal Limits: No Swallowing Diagnosis: Oropharyngeal Phase Dysphagia Severity: Moderate FOIS - Functional Oral Intake Scale Total oral diet with multiple consistencies, but requiring special preparation or compensations: Level 5 SP [facility] My swallowing ability limits my day to day activities: agree E2. I am embarrassed by my eating habits.: agree F1. People have difficulty cooking for me.: agree P2. Swallowing is more difficult at the end of the day.: strongly disagree E7. I do not feel self-conscious when I eat.: disagree E4. I am upset by my swallowing problems.: no opinion P6. Swallowing takes great effort.: disagree E5. I do not go out because of my swallowing problems.: disagree F5. My swallowing difficulty has caused me to lose income.: disagree P7. It takes me longer to eat because of my swallowing problem.: strongly agree P3. People ask me, Why can't you eat that?: strongly disagree E3. Other people are irritated by my eating problem.: strongly disagree P8. I cough when I try to drink liquids.: agree F3. My swallowing problems limit my social & personal life.: strongly disagree F2.I feel free to go out to eat w/my friends,neighbors & relatives.: agree P5.I limit my food intake because of my swallowing difficulty.: strongly disagree P1.I can't maintain my weight because of my swallowing problems.: strongly disagree E6. I have low self-esteem because of my swallowing problems: disagree P4. I feel that I am swallowing a huge amount of food.: strongly disagree F4. I feel excluded because of my eating habits.: disagree Global Score: 2 Composite Score: 73 SP Oncology PSS-HN - PSS-HN Test Normalcy of Diet: Soft chewable foods Scale Result:: 50 Public Eating: No restrictions of place, but restricts diet when in public Public eating scale: 75 Understandability of Speech: Understandable most of the time; occasional repetition necessary. Understandability of Speech Scale: 75 Other Impressions - Comments Cranial Nerve Examination -: TRIGEMINAL NERVE (CNV): appears grossly intact. FACIAL NERVE (CNVII): abnormal; mild left facial asymmetry upon retraction; left labial asymmetry at rest/upon retraction/with protrusion. VAGUS NERVE (CNX): appears grossly intact. 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 diet tolerance during and post radiation treatment. Without skilled ST services, the patient is at risk for aspiration, weight loss, and malnutrition. - Recommendations Treatment Warranted: Yes - Frequency Frequency: Every Other Week Duration: 2 Months - Prognosis Prognosis: Good - Goals that are Established: Determination:: Goals will be added/modified as deemed necessary and appropriate. Therapy will be discontinued when results of re-evaluation indicate therapy is no longer needed or lack of progress has been documented. - Goal #1-5 Goal #1: The patient will consume least restrictive diet textures without overt s/s of aspiration with 90% accuracy with minimal verbal cues for use of compensatory strategies to decrease risk for aspiration. Goal #2: The patient will complete lingual strengthening/ROM exercises w/ 90% accuracy w/ .min verbal/visual cues to improve oral control and reduce aspiration risk Goal #3: The patient will independently complete an oropharyngeal exercise program a minimum 10 repetitions each, 3 sets daily to maintain strength, ROM, and coordination of swallowing mechanism. 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 Recommended initiating an oropharyngeal strengthening exercise program to preserve swallow function, maintain PO intake and reduce cumulative effects of RFS on swallow function over time. Discussed importance for speech therapy to implement oropharyngeal swallow exercise program & initiate lingual strength/ROM exercises. Provided the patient a handout and demonstration of prophylactic oropharyngeal exercise program. The patient provided return demonstration with all exercises with minimal verbal cues and demonstration. The patient would benefit from continued training to monitor proper execution of exercises and encourage strict adherence to exercise program. Person Taught: Patient
--- NOTE | 2021-12-25 08:57 | HP.SP.ADRE ---
Previous/Current Goals - Goals 1-5 Previous Goal #1: The patient will consume least restrictive diet textures without overt s/s of aspiration with 90% accuracy with minimal verbal cues for use of compensatory strategies to decrease risk for aspiration. Goal 1 Status: PROGRESSING - The patient reports coughing only when eating with a fast rate or large bites. She notes difficulty swallowing rice due to difficulty with oral clearance; however, with use of a puree textures (pudding/mashed potatoes) as a chaser, she can clear oral residues. Re-educated pt in strategy for multiple swallows when consuming food and drink to clear pharyngeal residues. She verbalized good awareness for need for slow rate of intake, small bites to prevent coughing with intake. Previous Goal #2: The patient will complete lingual strengthening/ROM exercises w/ 90% accuracy w/ min verbal/visual cues to improve oral control and reduce aspiration risk Goal 2 Status: PROGRESSING - Mod cues for completing lingual retraction. Anticipate limited progress in future sessions for increasing tongue ROM 2 years s/p left hemiglossectomy. Previous Goal #3: The patient will independently complete an oropharyngeal exercise program a minimum 10 repetitions each, 3 sets daily to maintain strength, ROM, and coordination of swallowing mechanism. Goal 3 Status: PROGRESSING - The patient completes Claire, Tongue pull back, Effortful Swallow, and Dior 1X daily. Encouraged to complete all exercises a minimum of 3 times daily. Education provided re: radiation fibrosis syndrome and reinforced the importance of continued proactive oropharyngeal exercises to reduce compounding effects of radiation over time. Previous Goal #4: Patient will independently utilize compensatory strategies - slow rate of speech, increased vocal intensity, exaggerated emphasis of each sound/syllable - for improved speech intelligibility at the conversational level. Goal 4 Status: Reduced speech intelligibility appreciated in conversation during 07/18/21 session, exacerbated by rapid rate of speech and reduced vocal intensity (intelligibility ~75% when topic was unknown to this listener). Goal added for articulation/intelligibility on 07/18/21. Pt demonstrated excellent use of strategies during structured tasks - able to repeat back at the phrase and sentence level w/ 100% intelligibility, although poot carryover of skills learned into conversational speech. Mod cues required for use of slower rate of speech and increased vocal intensity in conversation. Encouraged face to face conversation and to reduce background noise in conjunction w/ use of intelligibility strategies to improve listener comprehension. Previous Goal #5: The patient will participate in MBS study to objectively assess swallow function and provide recommendations for safest, least restrictive diet and compensatory strategies to reduce risk for aspiration. Goal 5 Status: Will plan for yearly MBS study for routine assessment of swallow function s/p left hemiglossectomy with free flap reconstruction and left cervical lymphadenectomy with chemoradiation treatment. Next MBS study planned for 04/2022. History - History Date of Eval: 07/04/21 Medical Diagnosis (from RX): Primary cancer of oral cavity (C06.9) Date of Onset of Diagnosis: 03/16/2020 Previous speech therapy: Yes Results: Modified Barium Swallow Study 11/01/2020 - mild to moderate oropharyngeal dysphagia; diet recommended - mechanical soft textures/thin liquids - compensatory strategies recommended - cut tougher textures into bite sized pieces as she advances to a more soft-solid diet, reduced bolus volume / rate of ingestion, liquid chaser at. reasonable intervals, consider using straws with all liquids, seated upright at 90 degrees during PO intake, remain upright for 30-60 minutes post meal (GERD precaution), medications one at a time with a liquid chaser; enteral supplementation as needed during transition to full PO diet. 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 From 07/24/2020 - 09/06/2020 she received adjuvant chemoradiation. Additional History: Carpal tunnel syndrome on right, Gluten intolerance Medications related to this diagnosis: Radiation Treatment History: From 07/24/2020 - 09/06/2020: Received 6600 cGy delivered to left neck level 2 and surrounding areas concerning for puneet extracapsular extension on initial imaging, 5940 cGy delivered to the postoperative bed and entire oral tongue as well as the remaining left neck from high level 2 through level 4, and 5412 cGy delivered to the right neck levels 2 through 5 and bilateral supraclavicular fossa. Treatment was delivered in 33 fractions with concurrent weekly carboplatin. Smoking Status: Never smoker Hx Smoking: No - Pain Is pain an issue with your current prescribed condition?: No - Personal Right Hearing Abillity: Normal Left Hearing Abillity: Normal Visual Assistive Devices: Glasses, Magnifying Glass Patients Living Arrangements: With Significant Other Patient Allergies - Allergies Allergies Penicillins [PCN] Allergy (Verified 12/05/21 11:38) Rash diazepam [From Valium] Adverse Reaction (Verified 12/05/21 11:38) Vomiting gluten Adverse Reaction (Verified 12/05/21 11:38) Diarrhea milk Adverse Reaction (Verified 12/05/21 11:38) Diarrhea FOIS - Functional Oral Intake Scale Total oral diet with multiple consistencies, but requiring special preparation or compensations: Level 5 Plan - Plan Plan: Will recommend the patient for skilled outpatient dysphagia therapy to address oropharyngeal dysphagia related to primary cancer of oral cavity s/p left hemiglossectomy with left selective neck dissection levels 1A through 4 (06/19/2020) with chemoradiation treatment (07/24/2020-09/06/2020) and to provide the patient further education re: oropharyngeal exercise program, diet texture recommendations, aspiration precautions, and compensatory strategies to decrease risk for aspiration. Additionally, will provide speech therapy services to improve speech intelligibility. Without skilled ST services, the patient is at risk for aspiration, weight loss, and malnutrition. - Recommendations MBS: Yes Treatment Warranted: Yes - Frequency Frequency: Quarterly Duration: 12 Months - Prognosis Prognosis: Good - Goals that are Established: Determination:: Goals will be added/modified as deemed necessary and appropriate. Therapy will be discontinued when results of re-evaluation indicate therapy is no longer needed or lack of progress has been documented. - Goal #1-5 Goal #1: The patient will consume least restrictive diet textures without overt s/s of aspiration with 90% accuracy with minimal verbal cues for use of compensatory strategies to decrease risk for aspiration. Goal #2: The patient will complete lingual strengthening/ROM exercises w/ 90% accuracy w/ min verbal/visual cues to improve oral control and reduce aspiration risk. Goal #3: The patient will independently complete an oropharyngeal exercise program a minimum 10 repetitions each, 3 sets daily to maintain strength, ROM, and coordination of swallowing mechanism. Goal #4: Patient will independently utilize compensatory strategies - slow rate of speech, increased vocal intensity, exaggerated emphasis of each sound/syllable - for improved speech intelligibility at the conversational level. Goal #5: The patient will participate in MBS study to objectively assess swallow function and provide recommendations for safest, least restrictive diet and compensatory strategies to reduce risk for aspiration.
== END 2021-12-17 19:00 | disposition home or self-care (01) ==
LOC: SP 09:00
PROVIDERS: PCP Internal Medicine; Referring Provider Student in an Organized Health Care Education/Training Program; Visit Provider Student in an Organized Health Care Education/Training Program
DX: R13.12 Dysphagia, oropharyngeal phase (principal)
CPT/HCPCS: 92526; 92610

== ENCOUNTER → 2022-11-18 | Outpatient (CLI) | payer MEDICARE, SELFPAY ==
[2020-07-10 13:29] VITALS: BMI 21.4
--- NOTE | 2022-11-18 07:55 | CT_ITS ---
STUDY: CT SOFT TISSUE NECK WITH CONTRAST REASON FOR EXAM: Female, 72 years old. MONITOR TONGUE CANCER. Prior surgical intervention and radiation treatment. RADIATION DOSAGE (If Supplied By Facility): CTDIvol = ( 7.25 ) mGy, DLP = ( 280.34 ) mGycm TECHNIQUE: The patient was scanned in a multi-detector CT scanner. High resolution transaxial imaging was performed following intravenous administration of IV 100mL Isovue-300. Sagittal and coronal images were reconstructed. Individualized dose optimization techniques were used for this CT. COMPARISON: Comparison is made with prior examination without intravenous contrast dated 08/09/2020. FINDINGS: A right-sided portacatheter is seen with the tip in the superior vena cava. The patient is status post left cervical resection. Multiple surgical clips are seen. There is evidence of resection of the left submandibular gland as well as several lymph nodes. Surgical clips are also seen along the left side of the base of the thumb. Normal bilateral sublingual and submandibular glands and spaces. Normal visualized nasopharynx. Normal retropharyngeal space. Normal perivertebral space. Normal visualized bilateral faucial tonsils. The visualized cervical lymph nodes (levels I-) are within normal size limits, and maintain normal morphology. There is no demonstrated solid or cystic mass lesion. There is no abnormal contrast enhancement. Normal epiglottis, bilateral vallecula and hypopharynx. The pre-epiglottic and paraglottic adipose spaces are normal. Normal visualized bilateral piriform sinuses, aryepiglottic folds, vocal cords, and arytenoid-cricoid articulations. Normal subglottic trachea. Normal bilateral lobes of the thyroid gland. Normal visualized pulmonary apices. Normal visualized paranasal sinuses. There is multilevel degenerative changes of the cervical spine. CT/Soft Tissue Neck WITH Contrast IMPRESSION: Status post resection and surgical changes in the left cervical region. Status post partial resection of the base of the tongue on the left side. No acute abnormality is seen. Electronically Signed: Sylvester Diaz MD at 10:17 EST ,
--- NOTE | 2022-11-18 07:55 | CT_ITS ---
STUDY: CT CHEST WITH CONTRAST REASON FOR EXAM: Female, 72 years old. MONITOR ORAL CANCER. Status post surgical resection and radiation treatment. RADIATION DOSAGE (If Supplied By Facility): CTDIvol = ( 7.25 ) mGy, DLP = ( 280.34 ) mGycm TECHNIQUE: Transaxial imaging was performed following intravenous administration of IV 100mL Isovue-300. Multiplanar coronal and sagittal images were reformatted. Individualized dose optimization techniques were used for this CT. COMPARISON: No relevant priors. FINDINGS: CHEST A right-sided teresa catheter seen with the tip in the superior vena cava. Mild degree of emphysematous changes. Increased interstitial markings in the lung apices worse on the right side suggestive of a bilateral apical scarring. No pulmonary nodule is seen. Coronary artery calcification. Normal mediastinum. Normal hilar regions. Normal unenhanced pulmonary arteries. Normal aorta arch and descending thoracic aorta. There is demineralization of the thoracic spine. There is no demonstrated abnormality of the visualized upper abdomen. CT/Chest WITH Contrast IMPRESSION: Mild degree of emphysematous changes with scarring at both lung apices worse on the right side. No pulmonary abnormality is seen. Electronically Signed: Sylvester Diaz MD at 12:36 EST ,
[2022-11-18] MEDS: 0.9 % NaCl (Sterile) Posiflush 10 mL IV ×2 (08:05→08:20)
[2022-11-18 08:21] LABS: CREATININE FINGERSTICK < 0.9 mg/dL (0.55-1.02); EGFR FINGERSTICK > 60.0000 mL/min (>60)
== END | disposition home or self-care (01) ==
LOC: CT 07:54
PROVIDERS: PCP Internal Medicine; Visit Provider Internal Medicine Medical Oncology
DX: C06.9 Malignant neoplasm of mouth, unspecified (principal)
CPT/HCPCS: 70491; 71260; Q9967; A4216

== ENCOUNTER → 2022-12-10 | Outpatient (CLI) | payer MEDICARE, SELFPAY ==
[2020-07-10 13:29] VITALS: BMI 21.4
--- NOTE | 2022-12-10 14:15 | ST.MBS ---
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 From 07/24/2020 - 09/06/2020 she received adjuvant chemoradiation. She received speech therapy services intermittently during and following radiation treatment. She is currently recommended for home oropharyngeal exercise program and yearly MBSS to monitor risk for worsening dysphagia s/p radiation. The patient has participated in 2 previous MBSS. Most recently MBSS was 05/03/2021 and pt was diagnosed with moderate-severe oropharyngeal dysphagia with recommendations for minced and moist textures / thin liquids with use of aspiration precautions. Pt reports mostly consuming chopped meats, blended foods, with some softer textures like baked potato (states she must be careful with the skin). She reports no difficulty swallowing as long as she takes her time. Current Diet Ordered: Minced and moist / Thin Dentition: Natural Teeth Mental Status: WNL Respiratory Status: Oxygenating on Room Air - Penetration-Aspiration Scale Penetration-Aspiration Scale: OBJECTIVE ASSESSMENT OF SWALLOW FUNCTION (QUANTITATIVE ? PER TRIAL): PENETRATION / ASPIRATION SCALE (RANKIN): 1 = does not enter airway 2 = enters airway/above vocal folds/ejected 3 = enters airway/above vocal folds/not ejected 4 = enters airway/contacts vocal folds/ejected 5 = enters airway/contacts vocal folds/not ejected 6 = enters airway/below vocal folds/ejected 7 = enters airway/below vocal folds/not ejected despite effort 8 = enters airway/below vocal folds/no effort VIDEOFLOROSCOPIC SCALE SCORE (RANKIN): Grade I = aspiration of material that has penetrated into the laryngeal vestibule, intact cough reflex Grade II = aspiration < 10 % of the bolus, intact cough reflex Grade III = aspiration of < 10 % of the bolus, reduced cough reflex or aspiration of > 10 % of the bolus, intact cough reflex Grade IV = aspiration of > 10 % of the bolus, reduced cough reflex - Penetration-Aspiration Scale Score Thin Liquid via teaspoon Result: 1= does not enter airway Thin Liquid via teaspoon Trial 2 Result: 2= enter airway/above vocal folds/ejected Thin Liquid via small single sip from cup Result: 2= enter airway/above vocal folds/ejected Thin Liquid via sequential sips from cup Result: 8= enters airway/below vocal folds/no effort [place] Thick Liquid via small single sip from cup Result: 1= does not enter airway Pudding via teaspoon Result: 1= does not enter airway 1/2 Cookie with esophageal screen Result: 1= does not enter airway Thin Liquid via sequential sips from cup Trial 2 Result: 5= enters airways/contacts vocal folds/not ejected Thin Liquid via single sip from straw Result: 1= does not enter airway Pudding via teaspoon Trial 2 (Esophageal screen only) Comment: No PAS score. Trials of pudding by tsp to clear cookie in esophagus, with good clearance. - Oral Phase Labial Seal: Interlabial escape, no progression to anterior lip Tongue Control During Bolus Hold: Posterior escape of less than half of bolus Bolus Preparation/Mastication: Minimal chewing/mashing with majority of bolus unchewed Bolus Transport/Lingual Motion: Delayed initiation of tongue motion Oral Residue: Residue collection on oral structures - Pharyngeal Phase Initiation of Pharyngeal Swallow: Bolus head in pyriforms Laryngeal Elevation: Partial superior movement thyroid cart/partial apprx aryt-epig petiole Epiglottic Movement: Partial inversion Laryngeal Vestibule Closure at Height of Swallow: Incomplete; narrow column of air/contrast in laryngeal vestibule Pharyngeal Stripping Wave: Present - diminished Pharyngoesophageal Segment Opening: Parital distension and partial duration; parital obstruction of flow Tongue Base Retraction: Wide column of contrast between tongue base & post. pharyngeal wall Pharyngeal Residue: Minimal to no pharyngeal clearance - 5 dry swallows and 2 liquid washes required to clear unchewed cookie through UES. - Esophageal Phase Esophageal Clearance: Esophageal retention - Diagnosis/Impression Diagnosis: Moderate-severe oropharyngeal phase dysphagia (R13.12) Impression: The oral phase is marked by... -Severe mastication deficits with whole piece of 1/2 Lila Doone cookie appearing unchewed. -Delayed tongue motion for A-P transport with liquids and puddings; however, for A-P transport of solid, the patient required use of a spoon (provided per pt request) to push cookie to the back of the oral cavity to swallow. -Mild oral residues after the swallow. The pharyngeal phase is marked by... -Deficits in pharyngeal motility observed when pt attempted to swallow whole piece of 1/2 Lila Doone cookie. She was unable to clear cookie through the pharynx with 5 swallows, but then successfully cleared it through the UES with use of 2 liquid washes. -Mildly decreased airway closure during the swallow due to decreased laryngeal elevation and anterior hyoid excursion. Trace SILENT aspiration of sequential sips of thin liquids via cup. Laryngeal penetration to the vocal folds without full ejection with thin liquid washes used to clear cookie from the pharynx. The esophageal phase is marked by... -Esophageal retention of cookie (un-chewed 1/2 Lila Doone) in the mid esophagus, which effectively cleared with use of pudding wash. - Recommendations Diet: Mechanical Soft Textures - Minced and Moist Textures (IDDSI Level 5), Thin Liquids Compensatory Strategies: Small Bites - chew thoroughly, Small Sips, Slow Rate, Sitting upright, Remain sitting upright for 30 minutes after PO intake Recommend Repeat Modified Barium Swallow: Yes Comment: Repeat MBS study in 12 months to monitor swallow function as the patient is at risk for worsening dysphagia and aspiration risk s/p radiation treatment. Need for Skilled Speech Therapy Services: Yes Comment: Will recommend 1-2 follow up sessions to re-implement oropharyngeal exercise program as pt admits to completing exercises maybe once a week at home. Will recommend implementation of Dior (as able), Claire, effortful swallows, and CTAR to promote improved tongue base retraction, hyolaryngeal elevation/excursion, pharyngal contraction, and UES opening/duration. Education Completed: 1. Described result of evaluation., 2. Pt understands evaluation & agrees with goals and treatment plan., 7. Pt requires further education on strategies & risks. - Status Active ST Patient: Active - Contact Information [facility] Speech Therapy:: Sophia Alvarado M.A. [facility] Speech-Language Pathologist [facility] [address] [place] [address] [email or web address] [phone] 12/10/22 14:27
== END | disposition home or self-care (01) ==
LOC: RAD 12:51
PROVIDERS: PCP Nurse Practitioner Family; Referring Provider Student in an Organized Health Care Education/Training Program; Visit Provider Student in an Organized Health Care Education/Training Program
DX: C06.9 Malignant neoplasm of mouth, unspecified (principal)
CPT/HCPCS: 74230; 92611

== ENCOUNTER → 2023-05-12 | Outpatient (CLI) | payer MEDICARE, SELFPAY ==
[2020-07-10 13:29] VITALS: BMI 21.4
--- NOTE | 2023-05-12 08:00 | CT_ITS ---
INDICATION: MONITOR HEAD NECK- TONGUE CA WITH CHEMO AND RADIATION EXAMINATION: CT NECK WITH CONTRAST - CT Soft Tissue Neck W/ Contrast Injection TECHNIQUE: Helically acquired images were obtained of the neck following IV contrast. A radiation dose optimization technique was used for this scan. IV Contrast dosage and agent: 100mL Isovue-300 RADIATION DOSAGE (If Supplied By Facility): CTDIvol = ( 7.46 ) mGy, DLP = ( 362.57 ) mGycm COMPARISON: CT soft tissues of the neck generally 11/18/2022 FINDINGS: NASOPHARYNX: Unremarkable. SUPRAHYOID NECK: Postsurgical changes are again seen along the left side of the tongue and the upper left neck. There is related postsurgical distortion of the hypopharynx and left parapharyngeal soft tissues. INFRAHYOID NECK: Unremarkable larynx, hypopharynx, and supraglottis. THYROID: No focal lesions. SALIVARY GLANDS: The left submandibular gland is surgically absent. LYMPH NODES: No cervical or supraclavicular lymphadenopathy. VASCULAR STRUCTURES: Unremarkable. VISUALIZED PORTIONS OF THE ORBITS, PARANASAL SINUSES, MASTOID AIR CELLS AND SKULL BASE: Unremarkable. BONES: Stable degenerative changes in the cervical spine, particularly involving the right C4-5 facet articulation. THORACIC INLET: Clear lung apices. The hub of a MediPort is seen in the subcutaneous tissues of the right anterior chest wall, the catheter extending over the clavicle to enter the right internal jugular vein and course caudally over the superior vena cava outside the [id number]. Stable subsegmental scarring in the right lung apex. CT/Soft Tissue Neck WITH Contrast IMPRESSION: Stable postsurgical changes involving the left base of the tongue and adjacent tissues of the upper left neck. No new mass or adenopathy seen. Electronically Signed: Kevin Messer MD at 8:35 EDT Reading Location ID and State: [id number] / Unknown , Service support ,
--- NOTE | 2023-05-12 08:00 | CT_ITS ---
INDICATION: MONITOR HEAD NECK CA- TONGUE CA WITH CHEMO AND RADIATION EXAMINATION: CT CHEST WITH CONTRAST - CT Chest W/ Contrast Injection TECHNIQUE: Helically acquired images were obtained of the chest following IV contrast. A radiation dose optimization technique was used for this scan. IV Contrast dosage and agent: 95 mL Isovue-300 RADIATION DOSAGE (If Supplied By Facility): CTDIvol = ( 7.46 ) mGy, DLP = ( 362.57 ) mGycm COMPARISON: FINDINGS: LUNGS, PLEURA AND LARGE AIRWAYS: There is stable scarring at the lung apices. There is mild stable emphysematous change in the lungs. No pleural effusion or thickening. No pneumothorax. THYROID: No thyroid lesions. HEART AND PERICARDIUM: Heart size is normal. No pericardial effusion. VESSELS: Thoracic aorta is not dilated. No aortic dissection. No obvious central pulmonary embolism although this study was not performed with the pulmonary embolism protocol. MEDIASTINUM AND MEDINA: No mediastinal or hilar adenopathy. Esophagus is unremarkable. No hiatal hernia. UPPER ABDOMEN: No acute pathology. BONES: No suspicious lytic or blastic abnormality. CT/Chest WITH Contrast IMPRESSION: Stable scarring at the lung apices. Mild stable diffuse emphysematous change. Otherwise no active chest disease. Electronically Signed: Guevara Mina, at 8:52 EDT ,
[2023-05-12] MEDS: 0.9% Saline Lock 10 ML Syringe IV (08:40)
[2023-05-12 08:42] LABS: CREATININE FINGERSTICK < 0.9 mg/dL (0.55-1.02); EGFR FINGERSTICK > 60.0000 mL/min (>60)
== END | disposition home or self-care (01) ==
LOC: CT 08:00
PROVIDERS: PCP Nurse Practitioner Family; Referring Provider Internal Medicine Medical Oncology; Visit Provider Internal Medicine Medical Oncology
DX: C02.9 Malignant neoplasm of tongue, unspecified (principal)
CPT/HCPCS: 70491; 71260; Q9967; A4216

== ENCOUNTER 2023-07-30 09:30 | Outpatient (RCR) | payer MEDICARE, SELFPAY ==
[2020-07-10 13:29] VITALS: BMI 21.4
--- NOTE | 2022-12-25 11:27 | ST ---
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 From 07/24/2020 - 09/06/2020 she received adjuvant chemoradiation. She received speech therapy services intermittently during and following radiation treatment. She is currently recommended for home oropharyngeal exercise program and yearly MBSS to monitor risk for worsening dysphagia s/p radiation. The patient has participated in 2 previous MBSS. Most recently MBSS was 05/03/2021 and pt was diagnosed with moderate-severe oropharyngeal dysphagia with recommendations for minced and moist textures / thin liquids with use of aspiration precautions. Pt reports mostly consuming chopped meats, blended foods, with some softer textures like baked potato (states she must be careful with the skin). She reports no difficulty swallowing as long as she takes her time. Current Diet Ordered: Minced and moist / Thin Dentition: Natural Teeth Mental Status: WNL Respiratory Status: Oxygenating on Room Air - Penetration-Aspiration Scale Penetration-Aspiration Scale: OBJECTIVE ASSESSMENT OF SWALLOW FUNCTION (QUANTITATIVE ? PER TRIAL): PENETRATION / ASPIRATION SCALE (RANKIN): 1 = does not enter airway 2 = enters airway/above vocal folds/ejected 3 = enters airway/above vocal folds/not ejected 4 = enters airway/contacts vocal folds/ejected 5 = enters airway/contacts vocal folds/not ejected 6 = enters airway/below vocal folds/ejected 7 = enters airway/below vocal folds/not ejected despite effort 8 = enters airway/below vocal folds/no effort VIDEOFLOROSCOPIC SCALE SCORE (RANKIN): Grade I = aspiration of material that has penetrated into the laryngeal vestibule, intact cough reflex Grade II = aspiration < 10 % of the bolus, intact cough reflex Grade III = aspiration of < 10 % of the bolus, reduced cough reflex or aspiration of > 10 % of the bolus, intact cough reflex Grade IV = aspiration of > 10 % of the bolus, reduced cough reflex - Penetration-Aspiration Scale Score Thin Liquid via teaspoon Result: 1= does not enter airway Thin Liquid via teaspoon Trial 2 Result: 2= enter airway/above vocal folds/ejected Thin Liquid via small single sip from cup Result: 2= enter airway/above vocal folds/ejected Thin Liquid via sequential sips from cup Result: 8= enters airway/below vocal folds/no effort [place] Thick Liquid via small single sip from cup Result: 1= does not enter airway Pudding via teaspoon Result: 1= does not enter airway 1/2 Cookie with esophageal screen Result: 1= does not enter airway Thin Liquid via sequential sips from cup Trial 2 Result: 5= enters airways/contacts vocal folds/not ejected Thin Liquid via single sip from straw Result: 1= does not enter airway Pudding via teaspoon Trial 2 (Esophageal screen only) Comment: No PAS score. Trials of pudding by tsp to clear cookie in esophagus, with good clearance. - Oral Phase Labial Seal: Interlabial escape, no progression to anterior lip Tongue Control During Bolus Hold: Posterior escape of less than half of bolus Bolus Preparation/Mastication: Minimal chewing/mashing with majority of bolus unchewed Bolus Transport/Lingual Motion: Delayed initiation of tongue motion Oral Residue: Residue collection on oral structures - Pharyngeal Phase Initiation of Pharyngeal Swallow: Bolus head in pyriforms Laryngeal Elevation: Partial superior movement thyroid cart/partial apprx aryt-epig petiole Epiglottic Movement: Partial inversion Laryngeal Vestibule Closure at Height of Swallow: Incomplete; narrow column of air/contrast in laryngeal vestibule Pharyngeal Stripping Wave: Present - diminished Pharyngoesophageal Segment Opening: Parital distension and partial duration; parital obstruction of flow Tongue Base Retraction: Wide column of contrast between tongue base & post. pharyngeal wall Pharyngeal Residue: Minimal to no pharyngeal clearance - 5 dry swallows and 2 liquid washes required to clear unchewed cookie through UES. - Esophageal Phase Esophageal Clearance: Esophageal retention - Diagnosis/Impression Diagnosis: Moderate-severe oropharyngeal phase dysphagia (R13.12) Impression: The oral phase is marked by... -Severe mastication deficits with whole piece of 1/2 Lila Doone cookie appearing unchewed. -Delayed tongue motion for A-P transport with liquids and puddings; however, for A-P transport of solid, the patient required use of a spoon (provided per pt request) to push cookie to the back of the oral cavity to swallow. -Mild oral residues after the swallow. The pharyngeal phase is marked by... -Deficits in pharyngeal motility observed when pt attempted to swallow whole piece of 1/2 Lila Doone cookie. She was unable to clear cookie through the pharynx with 5 swallows, but then successfully cleared it through the UES with use of 2 liquid washes. -Mildly decreased airway closure during the swallow due to decreased laryngeal elevation and anterior hyoid excursion. Trace SILENT aspiration of sequential sips of thin liquids via cup. Laryngeal penetration to the vocal folds without full ejection with thin liquid washes used to clear cookie from the pharynx. The esophageal phase is marked by... -Esophageal retention of cookie (un-chewed 1/2 Lila Doone) in the mid esophagus, which effectively cleared with use of pudding wash. - Recommendations Diet: Mechanical Soft Textures - Minced and Moist Textures (IDDSI Level 5), Thin Liquids Compensatory Strategies: Small Bites - chew thoroughly, Small Sips, Slow Rate, Sitting upright, Remain sitting upright for 30 minutes after PO intake Recommend Repeat Modified Barium Swallow: Yes Comment: Repeat MBS study in 12 months to monitor swallow function as the patient is at risk for worsening dysphagia and aspiration risk s/p radiation treatment. Need for Skilled Speech Therapy Services: Yes Comment: Will recommend 1-2 follow up sessions to re-implement oropharyngeal exercise program as pt admits to completing exercises maybe once a week at home. Will recommend implementation of Dior (as able), Claire, effortful swallows, and CTAR to promote improved tongue base retraction, hyolaryngeal elevation/excursion, pharyngal contraction, and UES opening/duration. Education Completed: 1. Described result of evaluation., 2. Pt understands evaluation & agrees with goals and treatment plan., 7. Pt requires further education on strategies & risks. - Status Active ST Patient: Active - Contact Information [facility] Speech Therapy:: Sophia Alvarado M.A. [employer] Speech-Language Pathologist [address] [address] [email or web address] [phone] 12/10/22 14:27 12/10/22 1510 <Electronically signed by Sophia Alvarado M.A. [employer]> Date/Time Sophia Alvarado M.A. [employer] Co-Signature Required for all Medicare patients Date/Time Co-Signature
--- NOTE | 2022-12-25 12:00 | HP.SP.REEV ---
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) - Pain Is pain an issue with your current prescribed condition?: No - Personal Preferred language: Malagasy History - History Date of Eval: 07/04/21 Smoking Status: Never smoker Hx Smoking: No - Pain Is pain an issue with your current prescribed condition?: No Patient Allergies - Allergies Allergies Penicillins [PCN] Allergy (Verified 07/29/22 08:28) Rash diazepam [From Valium] Adverse Reaction (Verified 07/29/22 08:28) Vomiting gluten Adverse Reaction (Verified 07/29/22 08:28) Diarrhea milk Adverse Reaction (Verified 07/29/22 08:28) Diarrhea Previous/Current Goals - Goals 1-5 Previous Goal #1: The patient will consume least restrictive diet textures without overt s/s of aspiration with 90% accuracy with minimal verbal cues for use of compensatory strategies to decrease risk for aspiration. Goal 1 Status: PROGRESSING - Pt consuming mostly soft solids, chopped meats, and thin liquids with need for puree wash to clear solids from oral cavity and pharynx and single sips of thin liquids per HEAD SWAMPER report. HEAD SWAMPER educated pt in choking risk consuming solids that she is unable to fully chew and pt verbalized understanding. SEE MBSS for full current diet recommendations. Previous Goal #2: The patient will complete lingual strengthening/ROM exercises w/ 90% accuracy w/ min verbal/visual cues to improve oral control and reduce aspiration risk. Goal 2 Status: PROGRESSING - Pt intermittently completes tongue retractions at home, but not routinely. Previous Goal #3: The patient will independently complete an oropharyngeal exercise program a minimum 10 repetitions each, 3 sets daily to maintain strength, ROM, and coordination of swallowing mechanism. Goal 3 Status: PROGRESSING - Pt able to complete recommended exercise program X10 reps each; however, pt admits to poor carryover at home, but plans to begin completing exercises 3X daily. Previous Goal #4: Patient will independently utilize compensatory strategies - slow rate of speech, increased vocal intensity, exaggerated emphasis of each sound/syllable - for improved speech intelligibility at the conversational level. Goal 4 Status: PROGRESSING - Pt aware of strategies, but still has to repeat herself in conversation with her . HEAD SWAMPER recommended further re-assessment and treatment of dysarthria if pt is interested. Pt to inform HEAD SWAMPER at next visit if she wishes to proceed with continued speech therapy. Previous Goal #5: The patient will participate in MBS study to objectively assess swallow function and provide recommendations for safest, least restrictive diet and compensatory strategies to reduce risk for aspiration. Goal 5 Status: PROGRESSING - Goal met for this calendar year. Next yearly MBSS planned for 11/2023. Subjective Oral Motor - Subjective Patient Reports: Drooling, Difficulty being Understood Objective Oral Motor - Oral Status Dentition: Missing Teeth - Labial Impairment: Mild Observation at Rest: WNL Closure: Drooling Pucker: WNL Retraction: WNL Alternating Pucker/Retraction: WNL - Labial Comments Comments: Mild R sided weakness noted for labial seal. - Lingual Impairment: Severe Protrusion: Moderate Retraction: Moderate Lateralization: Moderate - Jaw Impairment: Mild Opening: Mild Opening Measurement: 30mm - Oral Motor Comments Comments: Patient reports pooling of saliva, which impacts her speech clarity. She becomes frustrated with her when she has to repeat herself multiple times. Pt is unsure whether she would like to proceed with therapy to address speech clarity at this time and would like to report back to HEAD SWAMPER next session if she wishes to pursue dysarthria treatment. - Respiratory Status Respiratory Status: Room Air Modified Barium Results Hx MBS Report Entered: Yes MBS Results (from prior exam): 12/25/22 11:27 Speech Therapy by Sophia Alvarado [facility] Speech Pathology [address] [place] [address] Modified Barium Swallow Study MR#: [id number] Acct: [id number] Name: KAY HERRING Rep #: [id number] : 1950 72 From: Sophia Alvarado M.A. 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 From 07/24/2020 - 09/06/2020 she received adjuvant chemoradiation. She received speech therapy services intermittently during and following radiation treatment. She is currently recommended for home oropharyngeal exercise program and yearly MBSS to monitor risk for worsening dysphagia s/p radiation. The patient has participated in 2 previous MBSS. Most recently MBSS was 05/03/2021 and pt was diagnosed with moderate-severe oropharyngeal dysphagia with recommendations for minced and moist textures / thin liquids with use of aspiration precautions. Pt reports mostly consuming chopped meats, blended foods, with some softer textures like baked potato (states she must be careful with the skin). She reports no difficulty swallowing as long as she takes her time. Current Diet Ordered: Minced and moist / Thin Dentition: Natural Teeth Mental Status: WNL Respiratory Status: Oxygenating on Room Air - Penetration-Aspiration Scale Penetration-Aspiration Scale: OBJECTIVE ASSESSMENT OF SWALLOW FUNCTION (QUANTITATIVE ? PER TRIAL): PENETRATION / ASPIRATION SCALE (RANKIN): 1 = does not enter airway 2 = enters airway/above vocal folds/ejected 3 = enters airway/above vocal folds/not ejected 4 = enters airway/contacts vocal folds/ejected 5 = enters airway/contacts vocal folds/not ejected 6 = enters airway/below vocal folds/ejected 7 = enters airway/below vocal folds/not ejected despite effort 8 = enters airway/below vocal folds/no effort VIDEOFLOROSCOPIC SCALE SCORE (RANKIN): Grade I = aspiration of material that has penetrated into the laryngeal vestibule, intact cough reflex Grade II = aspiration < 10 % of the bolus, intact cough reflex Grade III = aspiration of < 10 % of the bolus, reduced cough reflex or aspiration of > 10 % of the bolus, intact cough reflex Grade IV = aspiration of > 10 % of the bolus, reduced cough reflex - Penetration-Aspiration Scale Score Thin Liquid via teaspoon Result: 1= does not enter airway Thin Liquid via teaspoon Trial 2 Result: 2= enter airway/above vocal folds/ejected Thin Liquid via small single sip from cup Result: 2= enter airway/above vocal folds/ejected Thin Liquid via sequential sips from cup Result: 8= enters airway/below vocal folds/no effort Monona Thick Liquid via small single sip from cup Result: 1= does not enter airway Pudding via teaspoon Result: 1= does not enter airway 1/2 Cookie with esophageal screen Result: 1= does not enter airway Thin Liquid via sequential sips from cup Trial 2 Result: 5= enters airways/contacts vocal folds/not ejected Thin Liquid via single sip from straw Result: 1= does not enter airway Pudding via teaspoon Trial 2 (Esophageal screen only) Comment: No PAS score. Trials of pudding by tsp to clear cookie in esophagus, with good clearance. - Oral Phase Labial Seal: Interlabial escape, no progression to anterior lip Tongue Control During Bolus Hold: Posterior escape of less than half of bolus Bolus Preparation/Mastication: Minimal chewing/mashing with majority of bolus unchewed Bolus Transport/Lingual Motion: Delayed initiation of tongue motion Oral Residue: Residue collection on oral structures - Pharyngeal Phase Initiation of Pharyngeal Swallow: Bolus head in pyriforms Laryngeal Elevation: Partial superior movement thyroid cart/partial apprx aryt-epig petiole Epiglottic Movement: Partial inversion Laryngeal Vestibule Closure at Height of Swallow: Incomplete; narrow column of air/contrast in laryngeal vestibule Pharyngeal Stripping Wave: Present - diminished Pharyngoesophageal Segment Opening: Parital distension and partial duration; parital obstruction of flow Tongue Base Retraction: Wide column of contrast between tongue base & post. pharyngeal wall Pharyngeal Residue: Minimal to no pharyngeal clearance - 5 dry swallows and 2 liquid washes required to clear unchewed cookie through UES. - Esophageal Phase Esophageal Clearance: Esophageal retention - Diagnosis/Impression Diagnosis: Moderate-severe oropharyngeal phase dysphagia (R13.12) Impression: The oral phase is marked by... -Severe mastication deficits with whole piece of 1/2 Lila Doone cookie appearing unchewed. -Delayed tongue motion for A-P transport with liquids and puddings; however, for A-P transport of solid, the patient required use of a spoon (provided per pt request) to push cookie to the back of the oral cavity to swallow. -Mild oral residues after the swallow. The pharyngeal phase is marked by... -Deficits in pharyngeal motility observed when pt attempted to swallow whole piece of 1/2 Lila Doone cookie. She was unable to clear cookie through the pharynx with 5 swallows, but then successfully cleared it through the UES with use of 2 liquid washes. -Mildly decreased airway closure during the swallow due to decreased laryngeal elevation and anterior hyoid excursion. Trace SILENT aspiration of sequential sips of thin liquids via cup. Laryngeal penetration to the vocal folds without full ejection with thin liquid washes used to clear cookie from the pharynx. The esophageal phase is marked by... -Esophageal retention of cookie (un-chewed 1/2 Lila Doone) in the mid esophagus, which effectively cleared with use of pudding wash. - Recommendations Diet: Mechanical Soft Textures - Minced and Moist Textures (IDDSI Level 5), Thin Liquids Compensatory Strategies: Small Bites - chew thoroughly, Small Sips, Slow Rate, Sitting upright, Remain sitting upright for 30 minutes after PO intake Recommend Repeat Modified Barium Swallow: Yes Comment: Repeat MBS study in 12 months to monitor swallow function as the patient is at risk for worsening dysphagia and aspiration risk s/p radiation treatment. Need for Skilled Speech Therapy Services: Yes Comment: Will recommend 1-2 follow up sessions to re-implement oropharyngeal exercise program as pt admits to completing exercises maybe once a week at home. Will recommend implementation of Dior (as able), Claire, effortful swallows, and CTAR to promote improved tongue base retraction, hyolaryngeal elevation/excursion, pharyngal contraction, and UES opening/duration. Education Completed: 1. Described result of evaluation., 2. Pt understands evaluation & agrees with goals and treatment plan., 7. Pt requires further education on strategies & risks. - Status Active ST Patient: Active - Contact Information [facility] Speech Therapy:: Sophia Alvarado M.A. [facility]-HEAD SWAMPER Speech-Language Pathologist [facility] [address] [place] [address] [email or web address] [phone] 12/10/22 14:27 12/10/22 1510 <Electronically signed by Sophia Alvarado M.A., CCC-HEAD SWAMPER> Date/Time Sophia Alvarado M.A., CCC-HEAD SWAMPER Co-Signature Required for all Medicare patients Date/Time Co-Signature Initialized on 12/25/22 11:27 - END OF NOTE FOIS - Functional Oral Intake Scale Total oral diet with multiple consistencies, but requiring special preparation or compensations: Level 5 Plan - Plan Plan: Will recommend the patient for continued outpatient dysphagia therapy to address oropharyngeal dysphagia related to primary cancer of oral cavity s/p left hemiglossectomy with left selective neck dissection levels 1A through 4 (06/19/2020) with chemoradiation treatment (07/24/2020-09/06/2020) and to provide the patient further education re: oropharyngeal exercise program, diet texture recommendations, aspiration precautions, and compensatory strategies to decrease risk for aspiration. Without skilled ST services, the patient is at risk for aspiration, weight loss, and malnutrition. - Recommendations MBS: Yes Treatment Warranted: Yes Treatment Warranted: Dysphagia Comment: Yearly MBSS (next MBSS planned for 11/2023) to monitor risk for worsening dysphagia s/p chemoradiation for primary cancer of oral cavity. - Progress Prognosis: Good - Frequency Frequency: Monthly Duration: 12 Months - Goals that are Established Determination:: Goals will be added/modified as deemed necessary and appropriate. Therapy will be discontinued when results of re-evaluation indicate therapy is no longer needed or lack of progress has been documented. - Goal #1-5 Goal #1: The patient will consume least restrictive diet textures without overt s/s of aspiration with 90% accuracy with minimal verbal cues for use of compensatory strategies to decrease risk for aspiration. Goal #2: The patient will complete lingual strengthening/ROM exercises w/ 90% accuracy w/ min verbal/visual cues to improve oral control and reduce aspiration risk. Goal #3: The patient will independently complete an oropharyngeal exercise program a minimum 10 repetitions each, 3 sets daily to maintain strength, ROM, and coordination of swallowing mechanism. Goal #4: The patient will participate in MBS study to objectively assess swallow function and provide recommendations for safest, least restrictive diet and compensatory strategies to reduce risk for aspiration. Goal #5: The patient will participate in MBS study to objectively assess swallow function and provide recommendations for safest, least restrictive diet and compensatory strategies to reduce risk for aspiration.
--- NOTE | 2023-08-05 12:04 | HP.SP.DC ---
ST Discharge Summary Discharged: Discharge: The patient was initially evaluated 07/04/2021 for dysphagia s/p chemoradiation for cancer of L oral tongue. POC initiated to address oropharyngeal dysphagia. Previous OP ST from 07/26/2020-05/29/2021. Most recent MBSS 12/25/2022 recommended follow up visits for training in recommended diet textures, aspiration precautions, and oropharyngeal exercise program. During POC, the patient attended 6 sessions. She verbalizes understanding of recommendations and does not require continued dysphagia therapy at this time. Will discharge the patient from ST; however, will recommend annual MBSS or FEES to objectively assess swallow function and aspiration risk s/p s/p chemoradiation for cancer of L oral tongue.
== END 2023-07-30 19:00 | disposition home or self-care (01) ==
LOC: SP 09:30
PROVIDERS: PCP Nurse Practitioner Family; Referring Provider Student in an Organized Health Care Education/Training Program; Visit Provider Student in an Organized Health Care Education/Training Program
DX: C06.9 Malignant neoplasm of mouth, unspecified (principal)
CPT/HCPCS: 92526

== ENCOUNTER 2023-11-08 18:03 | Emergency (ER) | payer MEDICARE, SELFPAY ==
[2020-07-10 13:29] VITALS: BMI 21.4
[2023-11-08 18:04] VITALS: BP 114/65; PULSE 79; RESP 15; TEMP 36.1; O2SAT 100; BMI 19.4
--- NOTE | 2023-11-08 18:52 | EX.ED.DYSGE1 ---
HPI <ALLIE Calles - Last Filed: 11/08/23 20:37> History of Present Illness Chief Complaint: General Illness Narrative Narrative: Patient is a 73-year-old female with history of oral cancer, hypothyroidism iron deficiency anemia presents to the emergency department for generalized malaise, difficulty eating and drinking. Patient states over the last several days, she has been having a cough, body aches, she did get placed on a Z-Alphonse for her facial congestion. Patient states that she feels better however she just cannot eat and drink. Patient is concerned that she is dehydrated. Patient denies any significant cough, fever or chills at this time. PFSH <ALLIE Calles - Last Filed: 11/08/23 20:37> [facility], [facility] Medical History Carpal tunnel syndrome on right Gluten intolerance Hypothyroid PEG (percutaneous endoscopic gastrostomy) adjustment/replacement/removal (~10/2020) Tongue cancer Home Medications aspirin 81 mg chewable tablet 81 mg PO DAILY@0800 07/10/20 [History Last Taken Unknown] psyllium husk (aspartame) 3.4 gram oral powder packet 1 packet PO DAILY 07/10/20 [History Last Taken Unknown] ascorbic acid (vitamin C) 1,000 mg tablet 1,000 mg PO DAILY 07/19/20 [History Last Taken Unknown] multivitamin with minerals 1 ea PO DAILY 07/19/20 [History Last Taken Unknown] calcium carbonate 600 mg-vitamin D3 12.5 mcg (500 unit) capsule (Calcium 600 with Vitamin D3) 1 cap PO DAILY 06/28/21 [History Last Taken Unknown] polysaccharide iron complex 150 mg iron capsule (Ferrex) See Rx Instructions .Route .COMPLEX #90 caps 10/24/21 [Rx Last Taken Unknown] fluticasone propionate 44 mcg/actuation HFA aerosol inhaler 1 puff inhalation BID 07/29/22 [History Last Taken Unknown] fluticasone propionate 50 mcg/actuation nasal spray,suspension (Allergy Relief (fluticasone)) 1 spray intranasal DAILY 11/25/22 [History Last Taken Unknown] levothyroxine 100 mcg capsule 100 mcg PO DAILY 05/19/23 [History Last Taken Unknown] turmeric 100 mg-fidel 150 mg-olive 50 mg-oreg 150 mg-capryl capsule cap PO 08/28/23 [History Last Taken Unknown] Allergy/AdvReac Type Severity Reaction Status Date / Time Penicillins [PCN] Allergy Rash Verified 11/08/23 18:10 diazepam [From Valium] AdvReac Vomiting Verified 11/08/23 18:10 gluten AdvReac Diarrhea Verified 11/08/23 18:10 milk AdvReac Diarrhea Verified 11/08/23 18:10 Family History Mother Heart disease Colon cancer Sister Gallbladder cancer, carcinoma Father Diabetes Surgical History H/O tubal ligation History of esophagogastroduodenoscopy (EGD) (~06/2020) History of percutaneous endoscopic gastrostomy (~06/2020) Social History Smoking Status: Never smoker ROS <ALLIE Calles - Last Filed: 11/08/23 20:37> ROS ED ROS Narrative Constitutional: Negative for fever,weight loss, weakness. Positive for chills Eyes: Negative for vision loss, vision change, double vision ENT: Negative for any sore throat, ear pain, congestion Cardiovascular: Negative for any chest pain, tightness, palpitations Respiratory: Negative for any cough, sputum production, hemoptysis, dyspnea, dyspnea on exertion, orthopnea Gastrointestinal: Negative for any abdominal pain, nausea, vomiting, diarrhea, constipation, blood in stool, blood in vomit. Positive for decreased appetite : Negative for any urinary frequency, dysuria, retention, blood in urine Muscle skeletal: Negative for any myalgias, arthralgias, neck pain, back pain Neurological: Negative for any syncope, paresthesias, dizziness. Positive for intermittent headache Skin: Negative for any rashes, lumps, itching, abrasions, lacerations Psychiatric: Negative for any depression, anxiety, stress, suicidal ideation, homicidal ideation Hematologic: Negative for any easy bruising, excessive bruising, easy bleeding Allergies: Negative for any eczema, hives, rash EXAM <ALLIE Calles - Last Filed: 11/08/23 20:37> Physical Exam Narrative Exam Narrative: Vital signs reviewed. HEET: Head normocephalic atraumatic, TMs clear bilaterally. Posterior pharynx is clear, dry mucous membranes. Nares clear bilaterally. I do see where they reconstructed her tongue, there is no signs of infection. Neck: Supple with no lymphadenopathy or tenderness. No signs of meningismus. Cardiac: Regular rate and rhythm no murmurs gallops or rubs, equal peripheral pulses bilaterally. Respiratory: Lungs clear to auscultation bilaterally. No chest tenderness. Abdomen: Soft, nontender, nondistended. No abdominal bruit or pulsatile masses. No hepatosplenomegaly Extremities: No peripheral edema, no signs of gross trauma or deformity. Active full range of motion of all extremities. Neuro: Cranial nerves II through XII intact, no focal neurological deficits. Skin: Clean dry and intact with no rash, purpura, petechiae, vesicles or pustules. Backs/flank: No CVA tenderness, no midline spinal tenderness, no deformity. Psych: Normal mood and affect. No SI, HI or acute psychosis. Const Vital Signs: 11/08/23 18:04 11/08/23 18:03 Temperature 97.0 F L Temperature Source Temporal Pulse Rate 79 Respiratory Rate 15 Respiratory Effort Normal Respiratory Pattern Normal Blood Pressure 114/65 Blood Pressure Mean 81 Pulse Ox 100 Oxygen Delivery Method Room Air Positive well nourished and well developed General Appearance ED: well developed <Dr. Romero Call DO - Last Filed: 11/08/23 21:32> Physical Exam Const Vital Signs: 11/08/23 18:04 11/08/23 18:03 Temperature 97.0 F L Temperature Source Temporal Pulse Rate 79 Respiratory Rate 15 Respiratory Effort Normal Respiratory Pattern Normal Blood Pressure 114/65 Blood Pressure Mean 81 Pulse Ox 100 Oxygen Delivery Method Room Air MDM <ALLIE Calles - Last Filed: 11/08/23 20:37> [facility] Lab Data Labs: Laboratory Results - last 24 hr 11/08/23 11/08/23 19:19 19:38 WBC 5.1 RBC 3.68 L Hgb 11.4 L Hct 33.1 L MCV 89.9 MCH 31.0 MCHC 34.4 RDW Std Deviation 42.0 RDW Coeff of [place] 12.6 Plt Count 66 L MPV 11.2 Immature Gran % (Auto) 0.600 Neut % (Auto) 87.5 H Lymph % (Auto) 7.9 L [place] % (Auto) 3.6 Eos % (Auto) 0.0 Baso % (Auto) 0.4 Absolute Neuts (auto) 4.4 Absolute Lymphs (auto) 0.40 L Nucleated RBC % 0 Differential Comment SCANNED Reactive Lymphocytes 1+ Platelet Estimate MKD DEC Sodium 135 L Potassium 3.6 Chloride 101 Carbon Dioxide 26.0 Anion Gap 8 BUN 58 H Creatinine 1.14 H Estim Creat Clear Calc 29.71 Est GFR (MDRD) Af Amer 60 Est GFR (MDRD) Non-Af 50 L BUN/Creatinine Ratio 50.9 H Glucose 87 Calcium 9.2 Urine Color Yellow Urine Clarity Clear Urine pH 5.0 Ur Specific [place] 1.015 Urine Protein 100 H Urine Glucose (UA) Normal Urine Ketones 5 H Urine Occult Blood 50 H Urine Nitrite Negative Urine Bilirubin Negative Urine Urobilinogen Normal Ur Leukocyte Esterase 100 H Urine RBC 0-5 SEEN Urine WBC 0-5 SEEN Ur Squamous Epith Cells 0-5 SEEN Urine Bacteria RARE Fine Granular Casts 0-5 SEEN Urine Mucus 0 SEEN Radiography Diagnostic Testing: Clinical Impression(s) from Imaging Studies Chest X-Ray 11/08/23 18:55 IMPRESSION: No active disease. Electronically Signed: Gallito Kaba MD at 19:24 EST , Treatment and Re-Evaluation :: Patient appears generally well, patient appears nontoxic, vital signs are stable. Presenting to the emergency department with complaints of dehydration, feeling of weakness. Patient is on her last day of Zithromax, still feeling tired. Differential diagnose includes viral-like illness, dehydration, failure to thrive, renal sufficiency. Patient was seen basic laboratory values including a chest x-ray, IV fluids will be given. Patient will receive a rapid COVID/influenza/RSV. All radiologic examinations were read, reviewed by the emergency department attending. From these reads, a plan of care will be put in place. . Patient's chest x-ray shows no active disease. Patient's urinalysis was negative for any infection. Patient's respiratory viral panel was negative for any COVID-19/influenza, RSV. CBC showed some anemia with a hemoglobin of 0.4, this is chronic. Patient's chemistries show slight increase in her creatinine at 1.14 however patient has baseline 0.79. Patient be given 1 L of fluid and states she felt better. At this time, there is no evidence suspect any viral infection, kidney injury. Patient was instructed she continues to heal she continues to need to eat and drink better. She understands this. She was drinking p.o. fluids on discharge. At this time, patient was given strict return precaution all questions answered, she will follow-up outpatient. <Dr. Romero Call, DO - Last Filed: 11/08/23 21:32> [facility] MDM Narrative Medical decision making narrative: I have personally performed a face to face assessment of the patient and have reviewed the WOOD Note. I performed a substantive portion of the visit including all aspects of the following. My leon findings include: History: Patient presents with possible dehydration. Patient states she has not been feeling well over the past couple days. Patient states she has had diarrhea. Patient states she has had decreased appetite and does not want to eat or drink anything. Patient denies any pain. Patient denies any nausea or vomiting. Patient denies any fevers but admits to some subjective chills. Patient saw her primary care physician on a virtual visit. He prescribed Zithromax Z-Alphonse. He instructed the patient to take at home COVID test. Patient took this and it was negative. Exam: Vital signs are stable. Patient is afebrile. Patient is in no acute distress. Patient oral mucosa is pink and moist. Neck is supple. Trachea is midline. There is no JVD. Heart was regular rate and rhythm. Lungs are clear and equal bilateral. Abdomen is soft. Bowel sounds are normal. There is no tenderness. Cranial nerves II through XII are intact. There are no focal motor or sensory deficits noted. Medical Decision Making: Differential diagnosis includes dehydration, electrolyte abnormality, viral illness, pneumonia COVID-19 infection, RSV infection, and influenza infection. Chest x-ray will be obtained to assess for pneumonia. CBC will be obtained to assess for leukocytosis and anemia. Basic metabolic profile will be obtained to assess for electrolyte abnormality and renal function. Urinalysis will be obtained to assess for urinary tract infection and hematuria. COVID-19 PCR will be obtained to assess for COVID-19 infection. Influenza PCR will be obtained to assess for influenza infection. RSV PCR will be obtained to assess for RSV infection. CBC was reviewed. There is a mild anemia with a hemoglobin of 11.4 hematocrit 33.1. There is a mild thrombocytopenia with a platelet count of 66. The remainder is within normal limits. Basic metabolic profile was reviewed. BUN was 58 and creatinine was 1.14. Urinalysis was reviewed. There is no evidence of urinary tract infection or hematuria. COVID-19 PCR was reviewed and was negative. Influenza PCR was reviewed and was negative. RSV PCR was reviewed and was negative. Patient was given IV fluids. Patient was feeling better on reevaluation. Patient was able to ambulate to the bathroom without difficulty. Patient was instructed to follow-up with her primary care physician in 5 to 7 days. Patient understood and was agreeable with the plan. All questions were answered. Lab Data Labs: Laboratory Results - last 24 hr 11/08/23 11/08/23 19:19 19:38 WBC 5.1 RBC 3.68 L Hgb 11.4 L Hct 33.1 L MCV 89.9 MCH 31.0 MCHC 34.4 RDW Std Deviation 42.0 RDW Coeff of [place] 12.6 Plt Count 66 L MPV 11.2 Immature Gran % (Auto) 0.600 Neut % (Auto) 87.5 H Lymph % (Auto) 7.9 L [place] % (Auto) 3.6 Eos % (Auto) 0.0 Baso % (Auto) 0.4 Absolute Neuts (auto) 4.4 Absolute Lymphs (auto) 0.40 L Nucleated RBC % 0 Differential Comment SCANNED Reactive Lymphocytes 1+ Platelet Estimate MKD DEC Sodium 135 L Potassium 3.6 Chloride 101 Carbon Dioxide 26.0 Anion Gap 8 BUN 58 H Creatinine 1.14 H Estim Creat Clear Calc 29.71 Est GFR (MDRD) Af Amer 60 Est GFR (MDRD) Non-Af 50 L BUN/Creatinine Ratio 50.9 H Glucose 87 Calcium 9.2 Urine Color Yellow Urine Clarity Clear Urine pH 5.0 Ur Specific [place] 1.015 Urine Protein 100 H Urine Glucose (UA) Normal Urine Ketones 5 H Urine Occult Blood 50 H Urine Nitrite Negative Urine Bilirubin Negative Urine Urobilinogen Normal Ur Leukocyte Esterase 100 H Urine RBC 0-5 SEEN Urine WBC 0-5 SEEN Ur Squamous Epith Cells 0-5 SEEN Urine Bacteria RARE Fine Granular Casts 0-5 SEEN Urine Mucus 0 SEEN Radiography Diagnostic Testing: Clinical Impression(s) from Imaging Studies Chest X-Ray 11/08/23 18:55 IMPRESSION: No active disease. Electronically Signed: Gallito Kaba MD at 19:24 EST , Discharge Plan Triage Chief Complaint: General Illness ED Midlevel Provider: [place]ie ED Provider: Romero Call Dx/Rx/DC Orders Clinical Impression: Viral syndrome, Dehydration Instructions: Dehydration, ED Dehydration (Adult) Prescriptions: No Action calcium carbonate-vitamin D3 [Calcium 600 with Vitamin D3] 600 mg(1,500mg) -500 unit capsule 1 cap PO DAILY fluticasone propionate 44 mcg/actuation HFA aerosol inhaler 1 puff inhalation BID Rx Instructions: administer with spacer fluticasone propionate [Allergy Relief (fluticasone)] 50 mcg/actuation spray,suspension 1 spray intranasal DAILY Rx Instructions: administer into each nostril [id number] 100 mg-150 mg- 50 mg-150 mg capsule PO levothyroxine 100 mcg capsule 100 mcg PO DAILY aspirin 81 MG tablet,chewable 81 mg PO DAILY@0800 psyllium husk (aspartame) 1 PACKET packet 1 packet PO DAILY ascorbic acid (vitamin C) 1,000 MG tablet 1,000 mg PO DAILY multivitamin with minerals 1 EACH tablet 1 ea PO DAILY polysaccharide iron complex [Ferrex 150] 150 mg iron capsule See Rx Instructions .ROUTE .COMPLEX Qty: 90 3RF Dose Instruction: TAKE 1 CAPSULE BY MOUTH ONCE DAILY WITH MEALS Rx Instructions: TAKE 1 CAPSULE BY MOUTH ONCE DAILY WITH MEALS Primary Care Provider: Reyna French Referrals: Reyna French, [facility] [Primary Care Provider] - Activity Restrictions/Additional Instructions: Ensure that you continue to advance your diet. Make sure to eat and drink normally Disposition Disposition: Home, Self Care
--- NOTE | 2023-11-08 18:55 | RAD_ITS ---
STUDY: X-RAY CHEST REASON FOR EXAM: Female, 73 years old. cough TECHNIQUE: Single AP portable view of the chest. COMPARISON: None. FINDINGS: Right internal jugular chest port. The lungs are clear and expanded. There is no demonstrated pleural abnormality. Normal size heart. Normal mediastinum and darby. Normal visualized pulmonary arteries. Normal visualized aortic arch and descending thoracic aorta. There is a dextroscoliosis of the thoracic spine. Normal visualized ribs, clavicles, and shoulders. There is no demonstrated abnormality of the visualized soft tissue structures of the upper abdomen. RAD/Chest 1 View (Portable) IMPRESSION: No active disease. Electronically Signed: Gallito Kaba MD at 19:24 EST ,
[2023-11-08] MEDS: 0.9% Normal Saline (1000mL) 1,000 ML 1000 ML IV (19:12)
--- OUTSIDE RECORDS SUMMARY | 2023-11-08 19:30 | XMS RPT_ITS | CCD ---
Author Name Unknown Address [address] [place] [address] Organization [facility] Care Team Providers Care Drill Instructor Name Role Phone Reyna Martel Unavailable Unavailable Unavailable Rupert MARES - Reyna MONTEMAYOR Primary Care Provider [phone] MARTEL, REYNA Primary Care Unavailable KEENE, POPPY R Referring Unavailable MARTEL, REYNA Primary Care Unavailable KEENE, POPPY R Referring Unavailable MARTEL, REYNA Primary Care Unavailable KEENEPOPPY R Admitting Unavailable KEENE POPPY R Attending Unavailable MARTEL, REYNA Primary Care Unavailable LOU CHAVEZ Referring Unavailable Karly SAMPSON, Annelise Agrawalazrichard Primary Care Prov ider KOREY PHELPS Referring Unavailable TAVTREVOR, ANNELISE MONAZZAM Primary Care Unav ailable POPPY KEENE Attending Unavailable POPPY KEENE Attending Unavailable LISA MICHAUD Attending U navailable POPPY KEENE Attending Unavailable TAVALLAEE, ANNELISE MONAZZAM Primary Care Unav ailable Jackson, Reyna Attending Unavailable Jackson, Reyna Referring Unavailable Jackson, Reyna Primary Care Unavailable Jackson, Reyna Attending Unavailable Jackson, Reyna Referring Unavailable Jackson, Reyna Primary Care Unavailable Jackson, Reyna Attending Unavailable Jackson, Reyna Referring Unavailable Jackson, Reyna Primary Care Unavailable Jackson, Ms. Reyna Chitra Attending Unavailab le Jackson, Ms. Reyna Chitra Primary Care Unavailab le MANUEL REYNA D Primary Care Unavailable Jackson KNOCK UP ASSEMBLER-LAMINATION OPERATOR, Reyna Aragon Primary Care Provider Reyna Chris Unavailable REYNA JACKSON Attending Unavailable REYNA JACKSON Primary Care Unavailable REYNA JACKSON Attending Unavailable REYNA JACKSON Primary Care Unavailable Allergies Allergy Classification Reported Allergen(s) Allergy Type Date of Onset Reaction(s) Facility Penicillins (antibiotic) (3 sources) Penicillins; Translations: [Penicillins] Drug Allergy Rash [facility] Work Phone: (16 sources) Penicillins; Translations: [Penicillins] Allergy to drug (finding) 2 Hives [facility] Work Phone: (3 sources) diazePAM Drug Allergy 2 Nausea And Vomiting [facility] ZEFR (3 sources) Wheat gluten extract Drug Allergy 2 Diarrhea [facility] Work Phone: (3 sources) Milk-Related Compounds Propensity to adverse reactions to drug 2 Diarrhea [facility] Work Phone: (3 sources) Gluten; Translations: [GLUTEN PROTEIN] Drug Intolerance 0 Diarrhea, Other [facility] Work Phone: (2 sources) Penicillins Drug Intolerance 3 Rash [facility] Medications Current Medications Medication Drug Class(es) Dates Sig (Normalized) Sig (Original) ascorbic acid 1000 mg oral tablet (4 sources) Vitamin C Start: 07-19-2020 ascorbic acid, vitamin C, (VITAMIN C) 1000 MG tablet Take 1 (one) tablet (1,000 mg total) by mouth . 0 07/19/2020 Active Completed/Discontinued Medications Medication Drug Class(es) Dates Sig (Normalized) Sig (Original) acetaminophen 325 mg oral tablet (1 source) Start: 02-26-2022 take 650 mg by mouth every six hours, then take 4000 mg by mouth every twenty-four hours 650 mg, Oral, EVERY 6 HOURS, First dose on Fri02/26/22 at 1145, Until Discontinued Maximum dose of acetaminophen is 4000 mg from all sources in 24 hours. Post-op benzonatate 200 mg oral capsule (5 sources) Non-narcotic Antitussive Start: 11-21-2021 take 1 capsule by mouth three times daily as needed Benzonatate 200 MG Oral Capsule TAKE 1 CAPSULE 3 TIMES DAILY NEEDED. Quantity: 21 Refills: 0 Ordered: 21-Nov-2021 Ese Moody MD Start : 21-Nov-2021 Active calcium carbonate 600 mg / cholecalciferol 0.01 mg oral tablet (14 sources) Vitamin D Start: 01-18-2021 Calcium 600+D 600-400 MG-UNIT TABS TAKE 1 TABLET Twice daily DO NOT TAKE AT SAME TIME IRON Quantity: 180 Refills: 3 Ordered: 31-Jan-2022 Reyna Coleman Start : 18-Jan-2021 Active Problems Active Problems Problem Classification Problem Date Documented Da te Episodic/Chronic Cancer of head and neck (19 sources) Malignant tumor of tongue; Translations: [Malignant neoplasm of tongue, unspecified] Onset: 06-19-2020 Chronic Past or Other Problems Problem Classification Problem Date Documented Da te Episodic/Chronic Administrative/social admission (2 sources) Other specified counseling; Translations: [Other specified counseling] Onset: 01-30-2023 Episodic Deficiency and other anemia (17 sources) Iron deficiency anemia; Translations: [Iron deficiency anemia, unspecified] Onset: 12-17-2022 08-01-2023 Episodic Diabetes mellitus without complication (20 sources) Prediabetes; Translations: [Other abnormal glucose] Onset: 12-17-2022 Episodic Diseases of white blood cells (16 sources) Leukopenia; Translations: [Leukocytopenia, unspecified] Onset: 12-17-2022 Resolved: 08-01-2023 08-01-2023 Chronic Headache; including migraine (11 sources) Headache; Translations: [Headache] Onset: 12-17-2022 12-17-2022 Episodic Immunizations and screening for infectious disease (20 sources) Patient encounter status; Translations: [Other specified vaccination] Onset: 12-17-2022 Resolved: 12-17-2022 08-01-2023 Episodic Other and unspecified benign neoplasm (16 sources) History of polyp of colon; Translations: [Personal history of colonic polyps] Onset: 12-17-2022 Resolved: 12-17-2022 12-17-2022 Episodic Other bone disease and musculoskeletal deformities (16 sources) Osteopenia; Translations: [Disorder of bone and cartilage, unspecified] Onset: 12-17-2022 12-17-2022 Episodic Other bone disease and musculoskeletal deformities (1 source) Other specified disorders of bone density and structure, left thigh; Translations: [Oth disrd of bone density and structure, left thigh] Onset: 02-07-2023 Episodic Other nutritional; endocrine; and metabolic disorders (16 sources) Underweight; Translations: [Underweight] Onset: 12-17-2022 12-17-2022 Episodic Other nutritional; endocrine; and metabolic disorders (2 sources) Decreased body mass index; Translations: [Body mass index (BMI) 19.9 or less, adult] Onset: 12-17-2022 12-17-2022 Episodic Other screening for suspected conditions (not mental disorders or infectious disease) (15 sources) Thyroid hormone tests abnormal; Translations: [Other abnormal blood chemistry] Onset: 01-30-2023 Episodic Other upper respiratory disease (11 sources) Rhinitis; Translations: [Chronic rhinitis] Onset: 12-17-2022 Resolved: 01-30-2023 01-30-2023 Chronic Residual codes; unclassified (20 sources) Past history of procedure; Translations: [Other specified personal history presenting hazards to health] Onset: 07-22-2016 Episodic Results Test Name Value Interpretation Reference Range Facil ity Vital Signs Date Time Vital Sign Value Performing Clinician Facility 08-01-2023 07:38-0400 Body height 147.3 cm Reyna PENA Work Phone: [facility] 08-01-2023 07:38-0400 Body mass index (BMI) [Ratio] 20.06 kg/m2 Reyna PENA Work Phone: [facility] 08-01-2023 07:38-0400 Body weight 43.55 kg Reyna PENA Work Phone: [facility] 08-01-2023 07:38-0400 Diastolic blood pressure 52 mm[Hg] Reyna PENA Work Phone: [facility] 08-01-2023 07:38-0400 Heart rate 66 /min Reyna PENA Work Phone: [facility] 08-01-2023 07:38-0400 SaO2% (BldA) [Mass fraction] 98 % Reyna Jackson APRN-LAMINATION OPERATOR Work Phone: [facility] 08-01-2023 07:38-0400 Systolic blood pressure 94 mm[Hg] Reyna Jackson APRN-LAMINATION OPERATOR Work Phone: [facility] 12-02-2022 07:56-0500 Body height 147.3 cm Poppy Keene MD Work Phone: [facility] 12-02-2022 07:56-0500 Body mass index (BMI) [Ratio] 19.23 kg/m2 Poppy Keene MD Work Phone: [facility] 12-02-2022 07:56-0500 Body temperature 97.7 [degF] Poppy Keene MD Work Phone: [facility] 12-02-2022 07:56-0500 Body weight 41.73 kg Poppy Keene MD Work Phone: [facility] 12-02-2022 07:56-0500 Diastolic blood pressure 70 mm[Hg] Poppy Keene MD Work Phone: [facility] 12-02-2022 07:56-0500 Systolic blood pressure 109 mm[Hg] Poppy Keene MD Work Phone: [facility] 08-01-2022 07:48-0400 Body height 147.32 cm Reyna Martel Work Phone: [facility] Work Phone: 08-01-2022 07:48-0400 Body mass index (BMI) [Ratio] 19.86 kg/m2 Reyna Martel Work Phone: [facility] Work Phone: 08-01-2022 07:48-0400 Body surface area Derived from formula 1.33 m2 Reyna Martel Work Phone: [facility] Work Phone: 08-01-2022 07:48-0400 Body weight 43.09 kg Reyna Martel Work Phone: [facility] Work Phone: 08-01-2022 07:48-0400 Diastolic blood pressure 61 mm[Hg] Reyna Martel Work Phone: [facility] Work Phone: 08-01-2022 07:48-0400 Heart rate 64 /min Reyna Martel Work Phone: [facility] Work Phone: 08-01-2022 07:48-0400 Systolic blood pressure 99 mm[Hg] Reyna Martel Work Phone: [facility] Work Phone: 02-26-2022 12:30-0400 Diastolic blood pressure 70 mm[Hg] Poppy Keene MD Work Phone: [facility] 02-26-2022 12:30-0400 Heart rate 57 /min Poppy Keene MD Work Phone: [facility] 02-26-2022 12:30-0400 Respiratory rate 12 /min Poppy Keene MD Work Phone: [facility] 02-26-2022 12:30-0400 SaO2% (BldA) [Mass fraction] 97 % Poppy Keene MD Work Phone: [facility] 02-26-2022 12:30-0400 Systolic blood pressure 122 mm[Hg] Poppy Keene MD Work Phone: [facility] 02-26-2022 11:55-0400 Body temperature 98.1 [degF] Poppy Keene MD Work Phone: [facility] 02-19-2022 12:33-0400 Body height 147.3 cm Poppy Keene MD Work Phone: [facility] 02-19-2022 12:33-0400 Body mass index (BMI) [Ratio] 19.65 kg/m2 Poppy Keene MD Work Phone: [facility] 02-19-2022 12:33-0400 Body weight 42.64 kg Poppy Keene MD Work Phone: [facility] 01-31-2022 07:58-0400 Body height 147.32 cm Reyna D Martel Work Phone: [facility] Work Phone: 01-31-2022 07:58-0400 Body mass index (BMI) [Ratio] 19.65 kg/m2 Reyna D Martel Work Phone: [facility] Work Phone: 01-31-2022 07:58-0400 Body surface area Derived from formula 1.32 m2 Reyna D Martel Work Phone: [facility] Work Phone: 01-31-2022 07:58-0400 Body weight 42.64 kg Reyna D Martel Work Phone: [facility] Work Phone: 01-31-2022 07:58-0400 Diastolic blood pressure 60 mm[Hg] Reyna D Martel Work Phone: [facility] Work Phone: 01-31-2022 07:58-0400 Heart rate 60 /min Reyna D Martel Work Phone: [facility] Work Phone: 01-31-2022 07:58-0400 Systolic blood pressure 96 mm[Hg] Reyna D Martel Work Phone: [facility] Work Phone: 06-28-2021 13:09-0400 Body height 147.32 cm Reyna D Martel Work Phone: [facility] Work Phone: 06-28-2021 13:09-0400 Body mass index (BMI) [Ratio] 19.44 kg/m2 Reyna D Martel Work Phone: [facility] Work Phone: 06-28-2021 13:09-0400 Body surface area Derived from formula 1.32 m2 Reyna D Martel Work Phone: [facility] Work Phone: 06-28-2021 13:09-0400 Body weight 42.18 kg Reyna D Martel Work Phone: [facility] Work Phone: 06-28-2021 13:09-0400 Diastolic blood pressure 62 mm[Hg] Reyna D Martel Work Phone: [facility] Work Phone: 06-28-2021 13:09-0400 Heart rate 68 /min Reyna D Martel Work Phone: [facility] Work Phone: 06-28-2021 13:09-0400 Systolic blood pressure 98 mm[Hg] Reyna D Martel Work Phone: [facility] Work Phone: 05-31-2021 15:51-0400 Body height 147.32 cm Reyna D Martel Work Phone: [facility] Work Phone: 05-31-2021 15:51-0400 Body mass index (BMI) [Ratio] 19.02 kg/m2 Reyna D Martel Work Phone: [facility] Work Phone: 05-31-2021 15:51-0400 Body surface area Derived from formula 1.3 m2 Reyna D Martel Work Phone: [facility] Work Phone: 05-31-2021 15:51-0400 Body weight 41.28 kg Reyna D Martel Work Phone: [facility] Work Phone: 05-31-2021 15:51-0400 Diastolic blood pressure 64 mm[Hg] Reyna Martel Work Phone: [facility] Work Phone: 05-31-2021 15:51-0400 Heart rate 62 /min Reyna Martel Work Phone: [facility] Work Phone: 05-31-2021 15:51-0400 Systolic blood pressure 94 mm[Hg] Reyna Martel Work Phone: [facility] Work Phone: Encounters Encounter Date Encounter Type Care Provider Facility Start: 11-05-2023 End: 11-05-2023 Office outpatient visit 15 minutes Annelise Brandt MD Work Phone: [facility] Procedures Date Procedure Procedure Detail Performing Clinician Start: 08-01-2023 INFLUENZA, HIGH-DOSE SEASONAL. QUADRIVALENT, PRESERVATIVE FREE REYNA JACKSON Start: 07-21-2023 CBC W Auto Different ial panel - Blood REYNA JACKSON Start: 07-21-2023 Comprehensive metabo lic 2000 panel - Serum or Plasma REYNA JACKSON Start: 07-21-2023 Ferritin [Mass/volum e] in Serum or Plasma REYNA JACKSON Start: 07-21-2023 Hemoglobin A1c/Hemoglobin.total in Blood REYNA JACKSON Start: 07-21-2023 IRON AND TIBC REYNA NAYLOR Y Start: 07-21-2023 Lipid panel REYNA JACKSON Start: 07-21-2023 PTH, INTACT REYNA JACKSON Start: 07-21-2023 TSH WITH REFLEX TO F REE T4 IF ABNORMAL REYNA JACKSON Start: 07-21-2023 VITAMIN D 25-HYDROXY,TOTAL REYNA JACKSON Start: 07-21-2023 Lipid 1996 panel - S steven or Plasma Reyna Jackson KNOCK UP ASSEMBLER-LAMINATION OPERATOR Work Phone: Start: 07-21-2023 Thyrotropin [Units/v olume] in Serum or Plasma Reyna Jackson KNOCK UP ASSEMBLER-LAMINATION OPERATOR Work Phone: Start: 02-07-2023 Mammography Reyna Jackson KNOCK UP ASSEMBLER-LAMINATION OPERATOR Work Phone: Start: 04-26-2022 Biopsy of tongue Reyna Martel Work Phone: Plan of Treatment Date Care Activity Detail Author Start: 03-22-2031 Screening for malignant neoplasm of colon [facility] Start: 07-21-2028 Lipid panel Lipid Panel [facility] Start: 07-21-2024 Diabetes mellitus screening Diabetes Screening [facility] Start: 07-21-2024 Hemoglobin A1c measurement Diabetes: Hemoglobin A1C [facility] Start: 07-21-2024 Thyroid stimulating hormone measurement TSH Level [facility] Start: 02-13-2024 End: 02-13-2024 Patient encounter procedure 02/13/2024 8:00 AM EDT Office Visit [facility] [address] [place] [phone] Reyna Jackson, KNOCK UP ASSEMBLER-LAMINATION OPERATOR [address] [place] [id number] [facility] Start: 02-08-2024 Screening for malignant neoplasm of breast Mammogram [facility] Start: 02-01-2024 Medicare Annual Wellness Visit Medicare Annual Wellness Visit (AWV) [facility] Start: 01-31-2024 End: 08-01-2024 25-hydroxyvitamin D3 [Mass/volume] in Serum or Plasma Vitamin D 25-Hydroxy,Total (for eval of Vitamin D levels) Lab Routine Iron deficiency anemia, unspecified iron deficiency anemia type Mixed hyperlipidemia Prediabetes Vitamin D deficiency Expected: 01/31/2024 (Approximate), Expires: 08/01/2024 [facility] Work Phone: Immunizations Immunization Date Immunization Notes Care Provider Fa cility 08-01-2023 Flu vaccine, quadrivalent, high-dose, preservative free, age 65y+ (FLUZONE) Reyna Jackson KNOCK UP ASSEMBLER-LAMINATION OPERATOR Work Phone: [facility] Work Phone: 08-01-2022 Fluzone High-Dose Quadrivalent 0.7 ML Intramuscular Suspension Prefilled Syringe; Translations: [Fluzone High-Dose Quadrivalent 0.7 ML Intramuscular Suspension Prefilled Syringe] Reyna Martel Work Phone: [facility] Work Phone: Payers Date Payer Category Payer Medicare [id number] 2016 Medicare [id number] 1950 Unknown [id number] 2.16.8 [id number] 1950 Unknown [id number] 2.16.8 [id number] 1950 Unknown [id number] 2.16.8 [id number] 1950 Unknown [id number] 2.16.8 [id number] 1950 Unknown [id number] 2.16. [id number] 1950 Unknown [id number] 2.16. [id number] 1950 Unknown [id number] 2.16. [id number] 1950 Unknown [id number] 2.16. [id number] 1950 Unknown [id number] 2.16. [id number] 1950 Unknown [id number] 2.16.8 [id number] 1950 Unknown [id number] 2.16.84 [id number] 1950 Unknown [id number] 2.16.8 [id number] 1950 Unknown [id number] 2.16.84 [id number] Unknown Social History Date Type Detail Facility Start: 08-01-2023 End: 11-05-2023 Does not use illicit drugs Does not use illicit drugs [facility] Work Phone: Tobacco smoking status LAIS Tobacco smoking consumption unknown [facility] Work Phone: Start: 1950 Sex Assigned At Not on file [facility] Phone: Start: 02-19-2022 End: 12-17-2022 Tobacco smoking status LAIS Never smoked tobacco [facility] [employer] [facility] Start: 02-19-2022 End: 12-17-2022 Tobacco use and exposure Smokeless tobacco non-user [facility] Phone: Start: 02-16-2022 End: 08-01-2023 Exposure to SARS-CoV-2 (event) Not sure [facility] [employer] [facility] Work Phone: Start: 12-02-2022 Alcohol intake Lifetime non-d moon (finding) [facility] Start: 08-01-2023 End: 11-05-2023 Alcohol intake Ex-drinker (finding) [facility] Work Phone: Start: 08-01-2023 End: 11-05-2023 Tobacco use panel [facility] Work Phone: Start: 10-26-2023 End: 11-05-2023 Exposure to SARS-CoV-2 (event) Unable to assess [facility] Work Phone: NEGATED: Highlighted rowStart: NINF History of tobacco use Passive smoker [facility] Clinical Notes 11-21-2021 to 11-05-2023 Annelise Brandt MD - 11/05/2023 12:30 PM Tae Jackson APRN-LAMINATION OPERATOR - 08/01/2023 7:40 AM Rachael Keene MD - 12/02/2022 8:05 AM Geovanni Jensen MA - 12/02/2022 7:58 AM EST Note Date & Type Note Facility 11-05-2023 History of Present illness Narrative Subjective Patient ID: Kay Rodriguez is a 73 y.o. female who presents for Follow-up (PT CO COVID EXPOSURE AND CO HEADACHE SINUS PAIN SYMPTOMS STARTED FRIDAY A LOT COUGHING MILD FEVER). Covid exposure last week Cough LOVE sinus congestion low grade fever , has chills, some SOB Review of Systems Constitutional: Positive for chills, fatigue and fever. HENT: Positive for rhinorrhea, sinus pressure and sinus pain. Negative for congestion. Eyes: Negative. Negative for discharge. Respiratory: Positive for cough and shortness of breath (exertion). Negative for wheezing. Cardiovascular: Negative. Negative for chest pain, palpitations and leg swelling. Gastrointestinal: Negative. Negative for abdominal distention, abdominal pain, constipation, diarrhea, nausea and vomiting. Endocrine: Negative. Genitourinary: Negative. Negative for dysuria and urgency. Musculoskeletal: Negative. Negative for back pain, joint swelling and neck stiffness. Skin: Negative. Negative for rash. Allergic/Immunologic: Negative. Negative for immunocompromised state. Neurological: Negative. Negative for light-headedness, numbness and headaches. Hematological: Negative. Negative for adenopathy. Psychiatric/Behavioral: Negative. Negative for agitation, behavioral problems and confusion. All other systems reviewed and are negative. Objective Physical Exam Constitutional: General: She is not in acute distress. LMP (LMP Unknown) Hemoglobin A1C Date/Time Value Ref Range Status 07/21/2023 07:29 AM 5.5 % Final Comment: Diagnosis of Diabetes-Adults Non-Diabetic: < or = 5.6% Increased risk for developing diabetes: 5.7-6.4% Diagnostic of diabetes: > or = 6.5% . Monitoring of Diabetes Age (y) Therapeutic Goal (%) Adults: >18 <7.0 Pediatrics: 13-18 <7.5 7-12 <8.0 0- 6 7.5-8.5 [place] [employer]. Diabetes Care 33(S1), Oct 2009. Assessment/Plan Problem List Items Addressed This Visit None Visit Diagnoses Upper respiratory tract infection, unspecified type - Primary Relevant Medications azithromycin (Zithromax) 250 mg tablet COVID-19 antigen test (COVID-19 At-Home Test) kit PT. WAS INSTRUCTED TO INCREASE FLUID INTAKE ,TAKE TYLENOL 650 MG PO Q6H/PRN FOR PAIN OR FEVER AND TAKE ROBITUSSIN OTC 2 TSP Q 6H/PRN FOR COUGH. Call with covid result Go to ER if getting worse Fu ER documented in this encounter [facility] Work Phone: 08-01-2023 History of Present illness Narrative Subjective Patient ID: Kay Rodriguez is a 73 y.o. female who presents for Follow-up (6 MONTH LAB RESULTS ). HPI: Presents today for 6 MONTH [facility] LABS. NO NEW COMPLAINTS LIPIDS- REFUSING MED MANAGEMENT AT THIS TIME. DIET MODIFICATIONS DISCUSSED. SHE DOES STATE A FAMILY H/O LIPID DISORDERS. WILL RECHECK IN 6 MONTHS PREDIABETES- STABLE PROTEIN- STABLE IRON- STABLE. MED REFILL THYROID- STABLE. REFUSING THYROID US AT THIS TIME Visit Vitals BP 94/52 (BP Location: Left arm, Patient Position: Sitting) Pulse 66 Ht 1.473 m (4' 10 ) Wt (!) 43.5 kg (96 lb) LMP (LMP Unknown) SpO2 98% BMI 20.06 kg/m OB Status Postmenopausal Smoking Status Never BSA 1.33 m Review of Systems Constitutional: Negative for chills, fatigue, fever and unexpected weight change. HENT: Negative for congestion, ear pain, sore throat and trouble swallowing. Eyes: Negative for photophobia, pain, redness and visual disturbance. Respiratory: Negative for apnea, cough, choking, chest tightness, shortness of breath and wheezing. Cardiovascular: Negative for chest pain, palpitations and leg swelling. Gastrointestinal: Negative for abdominal distention, abdominal pain, blood in stool, constipation, diarrhea, nausea and vomiting. Genitourinary: Negative for difficulty urinating, dysuria, flank pain, frequency, hematuria and urgency. Musculoskeletal: Negative for arthralgias, back pain, gait problem, joint swelling, myalgias and neck pain. Skin: Negative for rash and wound. Neurological: Negative for dizziness, seizures, syncope, facial asymmetry, speech difficulty, weakness, numbness and headaches. Psychiatric/Behavioral: Negative for confusion, sleep disturbance and suicidal ideas. The patient is not nervous/anxious. Objective Component Latest Ref Rng 07/21/2023 WBC 4.4 - 11.3 x10E9/L 4.5 RBC 4.00 - 5.20 x10E12/L 4.16 HEMOGLOBIN 12.0 - 16.0 g/dL 12.7 HEMATOCRIT 36.0 - 46.0 % 40.1 MCV 80 - 100 fL 96 MCHC 32.0 - 36.0 g/dL 31.7 (L) Platelets 150 - 450 x10E9/L 274 RED CELL DISTRIBUTION WIDTH 11.5 - 14.5 % 12.0 Neutrophils % 40.0 - 80.0 % 69.1 Immature Granulocytes %, Automated 0.0 - 0.9 % 0.0 Lymphocytes % 13.0 - 44.0 % 18.4 Monocytes % 2.0 - 10.0 % 8.9 Eosinophils % 0.0 - 6.0 % 2.7 Basophils % 0.0 - 2.0 % 0.9 Neutrophils Absolute 1.60 - 5.50 x10E9/L 3.12 Lymphocytes Absolute 0.80 - 3.00 x10E9/L 0.83 Monocytes Absolute 0.05 - 0.80 x10E9/L 0.40 Eosinophils Absolute 0.00 - 0.40 x10E9/L 0.12 Basophils Absolute 0.00 - 0.10 x10E9/L 0.04 GLUCOSE 74 - 99 mg/dL 72 (L) SODIUM 136 - 145 mmol/L 139 POTASSIUM 3.5 - 5.3 mmol/L 4.3 CHLORIDE 98 - 107 mmol/L 101 Bicarbonate 21 - 32 mmol/L 31 Anion Gap 10 - 20 mmol/L 11 Blood Urea Nitrogen 6 - 23 mg/dL 14 Creatinine 0.50 - 1.05 mg/dL 0.67 GFR Female >90 mL/min/1.73m2 >90 Calcium 8.6 - 10.3 mg/dL 9.2 Albumin 3.4 - 5.0 g/dL 4.0 Alkaline Phosphatase 33 - 136 U/L 69 Total Protein 6.4 - 8.2 g/dL 6.2 (L) AST 9 - 39 U/L 23 Bilirubin Total 0.0 - 1.2 mg/dL 0.3 ALT 7 - 45 U/L 20 CHOLESTEROL 0 - 199 mg/dL 242 (H) HDL CHOLESTEROL mg/dL 64.0 Cholesterol/HDL Ratio 3.8 LDL 0 - 99 mg/dL 162 (H) VLDL 0 - 40 mg/dL 16 TRIGLYCERIDES 0 - 149 mg/dL 82 IRON 35 - 150 ug/dL 69 TIBC 240 - 445 ug/dL 327 % Saturation 25 - 45 % 21 (L) Hemoglobin A1C % 5.5 Estimated Average Glucose MG/DL 111 Thyroid Stimulating Hormone 0.44 - 3.98 mIU/L 1.18 Vitamin D, 25-Hydroxy, Total ng/mL 52 Parathyroid Hormone, Intact 18.5 - 88.0 pg/mL 48.0 FERRITIN 8 - 150 ug/L 127 Legend: (L) Low (H) High Physical Exam Constitutional: Appearance: Normal appearance. She is normal weight. HENT: Head: Normocephalic. Eyes: Extraocular Movements: Extraocular movements intact. Conjunctiva/sclera: Conjunctivae normal. Pupils: Pupils are equal, round, and reactive to light. Cardiovascular: Rate and Rhythm: Normal rate and regular rhythm. Pulses: Normal pulses. Heart sounds: Normal heart sounds. Pulmonary: Effort: Pulmonary effort is normal. Breath sounds: Normal breath sounds. Musculoskeletal: General: Normal range of motion. Cervical back: Normal range of motion. Skin: General: Skin is warm and dry. Neurological: General: No focal deficit present. Mental Status: She is alert and oriented to person, place, and time. Psychiatric: Mood and Affect: Mood normal. Behavior: Behavior normal. Thought Content: Thought content normal. Judgment: Judgment normal. Assessment/Plan Problem List Items Addressed This Visit Hypothyroidism Iron deficiency anemia Relevant Medications iron polysaccharides (Ferrex 150) 150 mg iron capsule Other Relevant Orders CBC and Auto Differential Hemoglobin A1C Comprehensive Metabolic Panel Vitamin D 25-Hydroxy,Total (for eval of Vitamin D levels) Iron and TIBC Lipid Panel Thyroid Stimulating Hormone Triiodothyronine, Free Thyroxine, Free Parathyroid Hormone, Intact Ferritin Mixed hyperlipidemia Relevant Orders CBC and Auto Differential Hemoglobin A1C Comprehensive Metabolic Panel Vitamin D 25-Hydroxy,Total (for eval of Vitamin D levels) Iron and TIBC Lipid Panel Thyroid Stimulating Hormone Triiodothyronine, Free Thyroxine, Free Parathyroid Hormone, Intact Ferritin Prediabetes Relevant Orders CBC and Auto Differential Hemoglobin A1C Comprehensive Metabolic Panel Vitamin D 25-Hydroxy,Total (for eval of Vitamin D levels) Iron and TIBC Lipid Panel Thyroid Stimulating Hormone Triiodothyronine, Free Thyroxine, Free Parathyroid Hormone, Intact Ferritin Vitamin D deficiency Relevant Orders Vitamin D 25-Hydroxy,Total (for eval of Vitamin D levels) Parathyroid Hormone, Intact Protein-calorie malnutrition, unspecified severity (CMS/HCC) Need for influenza vaccination Relevant Orders Flu vaccine, quadrivalent, high-dose, preservative free, age 65y+ (FLUZONE) Seasonal allergies - Primary Relevant Medications fluticasone (Flonase) 50 mcg/actuation nasal spray WE DISCUSSED MOST COMMON SIDE EFFECTS OF PRESCRIBED MEDICATIONS. INDICATIONS, RISK, COMPLICATIONS, AND ALTERNATIVES OF MEDICATION/THERAPEUTICS WERE EXPLAINED AND DISCUSSED. PLEASE MONITOR CLOSELY FOR ANY UNTOWARD SIDE EFFECTS OR COMPLICATIONS OF MEDICATIONS. PATIENT IS STRONGLY ADVISED TO BE COMPLIANT WITH RECOMMENDATIONS. QUESTIONS AND CONCERNS WERE ADDRESSED. INSTRUCTED TO CALL, RETURN SOONER, OR GO TO THE ER, IF SYMPTOMS PERSIST OR WORSEN. THEY VOICED UNDERSTANDING AND DENIES FURTHER QUESTIONS AT THIS TIME. TIME CODE 1. PREPARATION FOR PATIENT'S VISIT (REVIEWING CHART, CURRENT MEDICAL RECORDS, OUTSIDE HEALTH PROVIDER RECORDS, PREVIOUS HISTORY, EXAM, TEST, PROCEDURE, AND MEDICATIONS) 2. FACE TO FACE ENCOUNTER OBTAINING HISTORY FROM THE PATIENT/FAMILY/CAREGIVERS; PERFORMING EVALUATION AND EXAMINATION; ORDERING TESTS OR PROCEDURES; REFERRING AND COMMUNICATING WITH OTHER HEALTHCARE PROVIDERS; COUNSELING AND EDUCATION OF THE PATIENT/FAMILY/CAREGIVERS; INDEPENDENTLY INTERPRETING RESULTS (TESTS, LABS, PROCEDURES, IMAGING) AND COMMUNICATING AND EXPLAINING RESULTS TO THE PATIENT/FAMILY/CAREGIVERS 3. COORDINATION OF CARE; PREPARING AND PRINTING DISCHARGE INSTRUCTIONS AND ANY EDUCATIONAL MATERIAL FOR THE PATIENT/FAMILY/CAREGIVERS. DOCUMENTING CLINICAL INFORMATION IN THE ELECTRONIC MEDICAL RECORD 4. REVIEWING OARRS NEEDED MDM 1) COMPLEXITY: MORE THAN 1 STABLE CHRONIC CONDITION ADDRESSED OR 1 ACUTE ILLNESS ADDRESSED 2)DATA: TESTS INTERPRETED AND OR ORDERED, TOOK INDEPENDENT HISTORY OR RECORDS REVIEWED 3)RISK: MODERATE RISK DUE TO NATURE OF MEDICAL CONDITIONS/COMORBIDITY OR MEDICATIONS ORDERED OR SURGICAL OR PROCEDURE REFERRAL 6 MONTHS WITH LABS AND MEDICARE WELLNESS documented in this encounter [facility] Work Phone: 12-02-2022 History of Present illness Narrative [facility] [address] [facility] [place] [address] [place] [id number] Dept: [phone] MD Kay Kohler 72 y.o. female Patient presents with a chief complaint of Follow-up (History of tongue cancer) BP 109/70 Temp 97.7 F (36.5 C) Ht 4' 10 Wt 41.7 kg (92 lb) BMI 19.23 kg/m History of Presenting Illness: The patient/caregiver reports a history of complaint with the following features: Onset: first treated 3 years ago Timing: ongoing Duration: 3 years no oral pain, no dry mouth Quality: no ear pain, no oral sores or lesions Location: tongue Severity: pain none Risk factors: prior free flap reconstruction Alleviating factors: prior surgery and XRT Aggravating factors: nothing makes it worse Associated factors: no dysphagia Review of systems covering 10 systems is reviewed and pertinent positives and negatives are noted as above. History reviewed. No pertinent past medical history. Current Outpatient Medications: ascorbic acid, vitamin C, (VITAMIN C) 1000 MG tablet, Take 1 (one) tablet (1,000 mg total) by mouth ., Disp: , Rfl: aspirin 81 MG EC tablet, Take 1 (one) tablet (81 mg total) by mouth Prior to discharge from the hospital ., Disp: , Rfl: fluticasone propionate (FLONASE) 50 mcg/actuation nasal spray, Instill 1 (one) spray into each nostril ., Disp: , Rfl: psyllium (METAMUCIL) 3.4 gram packet, Take 2,020 Unspecified by mouth ., Disp: , Rfl: zinc-vit C-pyridoxine, vit B6, 12-60-0.5 mg Lozg, Take 1 Unspecified by mouth daily ., Disp: , Rfl: No Known Allergies History reviewed. No pertinent surgical history. Social History Socioeconomic History Marital status: Tobacco Use Smoking status: Never Passive exposure: Never Smokeless tobacco: Never Substance and Sexual Activity Alcohol use: Never Drug use: Never History reviewed. No pertinent family history. PHYSICAL EXAM: The patient was examined today 12/02/2022 with findings as follows: CONSTITUTIONAL: General Appearance: well-appearing, nontoxic, alert, no acute distress Communication: understanding at normal conversational tones, normal voicing, speech intelligible HEAD/FACE: Head: atraumatic, normocephalic, no lesions Facial Inspection: no lesions, healthy skin Facial Strength: motor strength normal, symmetric strength, symmetric movement Sinuses: no sinus tenderness Salivary Glands: no enlargements of parotid glands, no tenderness of parotid glands, no masses of parotid glands, clear salivary flow on palpation from Stensen's ducts, no duct stones of Stensen's duct, no enlargement of submandibular glands, no tenderness of submandibular glands, no masses of submandibular glands, clear salivary flow from Alia's ducts, no stones of [place]'s ducts Temporomandibular Joint: no crepitus with motion, no tenderness on palpation, no trismus, motion symmetric EYES: Pupils: PERRLA, extra-ocular movements intact, no nystagmus, sclera white, no redness of eyes, no watering of eyes EARS: Bilateral External Ears: no pits, no tags Right External Ear: normally formed, no lesions, no mastoid tenderness Left External Ear: normally formed, no lesions, no mastoid tenderness Right External Auditory Canal: normal, healthy skin, no obstructing cerumen, no discharge Left External Auditory Canal: normal, healthy skin, no obstructing cerumen, no discharge Right Tympanic Membrane: normal landmarks, translucent, mobile to pneumatic otoscopy, no perforation Left Tympanic Membrane: normal landmarks, translucent, mobile to pneumatic otoscopy, no perforation Hearing: intact to spoken voice, intact to finger rub, Sen midline, Right Ear: Rinne AC>BC, Left Left Ear: Rinne AC>BC NOSE: Nasal Skin: no lesions, no lacerations, no scars Nasal Dorsum: symmetric with no visible or palpable deformities Nasal Tip: normal symmetric nasal tip, normal nasal valves Nasal Mucosa: normal, pink and moist Septum: not markedly deformed, midline, no exposed vessels, no bleeding, no septal granuloma Turbinates: normal size and conformation Nasopharynx: normal ORAL CAVITY/MOUTH: Lips, teeth, gums: normal lips, normal gums, dentition intact, no dental pain on palpation Oral Mucosa: normal, moist, no lesions Palate: normal hard palate, normal soft palate, symmetric palatal elevation Floor of Mouth: normal floor of mouth Tongue: intact left lateral graft, no lesions, no edema, no masses, normal mucosa, mobile Tonsils: normal tonsils, symmetric, no lesions Posterior pharynx: normal HYPOPHARYNX/LARYNX: Hypopharynx: normal hypopharynx, normal tongue base, normal pyriform sinus, normal vallecula Larynx: unable to tolerated due to gag, see endoscopy note, mild supraglottic edema, normal glottic mobility, no arytenoid edema, no post-cricoid edema, no subglottic stenosis NECK: Neck: no masses, trachea midline, normal range of motion, no cysts or pits, no tenderness to palpation, 5 mm firm scar tissue along neck incisional scar Thyroid: normal thyroid, no enlargement, no tenderness, no nodules LYMPH NODES: Cervical: no palpable lymph node enlargement RESPIRATORY: Inspection/Auscultation: good air movement, chest expands symmetrically, normal breath sounds, no wheezing, no stridor CARDIOVASCULAR SYSTEM: Auscultation: regular rate and rhythm, carotid pulse normal, no carotid thrills, no carotid bruits Observation/Palpation of Peripheral Vascular System: no varicosities, no cyanosis, no edema SKIN: General Appearance: no lesions, warm and dry, normal turgor, no bruising NEUROLOGICAL SYSTEM: Orientation: oriented to time, oriented to place, oriented to person Cranial Nerves: Cranial Nerves II-XII intact, normal facial movement PSYCHIATRIC: Mood and affect: normal mood, normal affect FIBEROPTIC NASOPHARYNOGLARYNGOSCOPY NOTE ([id number]) PROCEDURE PERFORMED BY: Poppy Keene MD PROCEDURE DATE: 12/02/2022 With the patient and/or caregiver's consent, the patient is positioned in the exam chair. The nasal cavity is then prepared with local anesthetic/decongestant of 4% Lidocaine and 0.05% oxymetazoline. Using a flexible endoscope the nasal cavity beginning on the left side is entered. There is normal moist nasal septal mucosa. The nasal septum is midline. The inferior turbinate is normal. The middle turbinate is normal. The ethmoid and frontal nasal recesses are intact and patent. The sphenoid sinus ostea is intact and patent. The maxillary sinus ostia is intact and patent The endoscope is then withdrawn and the right side is entered. The inferior turbinate is normal. The middle turbinate is normal. The ethmoid and frontal nasal recesses are intact and patent. The sphenoid sinus ostea is intact and patent. The maxillary sinus ostia is intact and patent Examination of nasopharynx shows normal adenoid and intact and patent eustachian tube orifices. Velopharyngeal closure is intact. Examination of the pharynx reveals the lateral and posterior pharyngeal wall mucosa is normal moist. Tonsils are normal. The tongue base is atrophic . Examination of the hypopharynx, vallecula, and pyriform sinus reveals normal. The epiglottis is edematous. Examination of the vocal folds reveals normal mucosal and mobility bilaterally and mild edema . The arytenoid and post-cricoid mucosa is edematous. The visualized portions of the subglottis is edematous. This completed the procedure with the patient having tolerated the procedure well. 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 I see no worrisome lesions of the tongue or pharynx. She reports recent follow-up scans were negative and I have requested these for review. There is a stable small area of scar tissue along the left neck incision line, but this has not increased in size and is not suspect for recurrent neoplasm at this time. The patient is doing well on follow-up examination. There is no evidence of residual or recurrent cancer at this time. The need for any additional assessment and the rationale for further follow-up is discussed. The patient and/or caregiver is advised to notify me if any changes in symptoms develop prior to the next visit. The patient and/or caregiver is able to state an understanding of these recommendations and is agreeable to the treatment plan. 1. History of carcinoma of tongue 2. Laryngeal edema 3. Primary cancer of oral cavity (HCC) Ambulatory referral to ENT Return in about 1 year (around 12/02/2023). The patient and/or caregiver is to notify the office if no improvement or worsening of symptoms is noted prior to the scheduled follow-up for sooner evaluation. The patient and/or caregiver is able to state an understanding of these recommendations and is agreeable to the treatment plan. --Poppy Keene MD on 12/02/2022 at 8:21 AM An electronic signature was used to authenticate this note. Review of Systems Constitutional: Negative. HENT: Negative. Eyes: Negative. Respiratory: Negative. Cardiovascular: Negative. Gastrointestinal: Negative. Endocrine: Negative. Genitourinary: Negative. Musculoskeletal: Negative. Skin: Negative. Allergic/Immunologic: Negative. Neurological: Negative. Hematological: Negative. Psychiatric/Behavioral: Negative. All other systems reviewed and are negative. documented in this encounter [facility] 02-26-2022 History of Present illness Narrative Discharge Criteria Outpatients must meet criteria 1 through 7. Up to restroom, void sufficient amount. Yes 1. Minimum 30 minutes after last dose of sedative medication, minimum 120 minutes after last dose of reversal agent. Yes 2. Systolic BP stable within 20 mmHg for 30 minutes & systolic BP between 90 & 180 or within 10 mmHg of baseline. Yes 3. Pulse between 60 and 100 or within 10 bpm of baseline. Yes 4. Spontaneous respiratory rate >/= 10 per minute. Yes 5. SaO2 >/= 95 or >/= baseline. Yes 6. Able to cough and swallow or return to baseline function. Yes 7. Alert and oriented or return to baseline mental status. Yes 8. Demonstrates controlled, coordinated movements, ambulates with steady gait, or return to baseline activity function. Yes 9. Minimal or no pain or nausea, or at a level tolerable and acceptable to patient. Yes 10. Takes and retains oral fluids as allowed. Yes 11. Procedural / perioperative site stable. Minimal or no bleeding. Yes 12. If GI endoscopy procedure, minimal or no abdominal distention or passing flatus. Yes 13. Written discharge instructions and emergency telephone number provided. Yes 14. Accompanied by a responsible adult. Yes Adult patient discharged from facility without responsible person meets above criteria plus the following: a) remains awake without stimulus for 30 minutes b) oriented appropriate for age c) all vital signs stable d) no significant risk of losing protective reflexes e) able to maintain pre-procedure mobility without assistance f) no nausea or dizziness g) transportation arrangements that do not require patient to operate motor Vehicle. Yes [facility] Preadmission Testing Name: Kay Rodriguez : 1950 Patient (home) Procedure: Mouth Lesion Biopsy Excision Date of Procedure: 02/26/2022 Surgeon: Poppy Keene MD Ht: 4' 10 (147.3 cm) Wt: 94 lb (42.6 kg) Wt method: Stated Allergies: Allergies Allergen Reactions Gluten Meal Diarrhea Milk-Related Compounds Diarrhea Penicillins Hives Diazepam Nausea And Vomiting There were no vitals filed for this visit. No LMP recorded. Patient is postmenopausal. Do you take blood thinners? [x] Yes [] No Instructed to stop blood thinners prior to procedure? [x] Yes [] No [] N/A Do you have sleep apnea? [] Yes [x] No Do you have acid reflux ? [x] Yes [] No Do you have hiatal hernia? [] Yes [x] No Do you ever experience motion sickness? [] Yes [x] No Have you had a respiratory infection or sore throat in last 4 weeks before surgery? [] Yes [x] No Do you have poorly controlled asthma or COPD? Difficulty with intubation in past? [] Yes [x] No [] Yes [x] No Do you have a history of angina in the last month or symptomatic arrhythmia? [] Yes [x] No Do you have significant central nervous system disease? [] Yes [x] No Have you had an EKG, labs, or chest xray in last 12 months? If yes provide copies to anesthesia [x] Yes [] No [x] Lab [x] EKG [] CXR Have you had a stress test? [] Yes [x] No When/where: Was it normal? [] Yes [] No Do you or your family have a history of Malignant Hyperthermia? [] Yes [x] No Do you smoke? [] Yes [x] No Please refrain from smoking on the day of surgery. Patient instructed on: [x] NPO Status [x] Meds to Take [x] Ride Home [x]No Jewelry/Contact Lenses/Nail Scottish [] Prep/Lax/Clear Liquids [] Chlorhexidene DOS Patient Needs [] HCG [] Blood Sugar [] PT/INR [] T&S COVID Vaccinated? [x] Yes [] No PAT Call/Visit Questions Person Interviewed: Kay Relationship to Patient: Patient Patient reminded to bring pertinent legal medical documents: Yes NPO Status Reinforced: Yes Ride and Caregiver Arranged: Yes Patient instructed on the pre-operative, intra-operative, and post-operative process? Yes Medication instructions reviewed with patient? Yes documented in this encounter [facility] Phone: 11-23-2021 History of Present illness Narrative TELEPHONE APPOINTMENT BEING PERFORMED DUE TO COVID-19 (CORONAVIRUS)Presents today for F/U COVID TESTING. COVID NOT DETECTED ON 11/23/21. ALL SYMPTOMS HAVE RESOLVED.NO NEW COMPLAINTS [facility] Work Phone: 11-21-2021 History of Present illness Narrative TELEPHONE VISIT DUE TO COVID19.SINUS CONGESTION WITH HEADACHE 5/10 ON AND OFF X 7-10 DAYS WITH RHINITIS .REAR PAIN 3/10 ON ND OFF X 2-3 DAYS. HAD CLOSE COVID EXPOSURE 2 WEEKS AGO. PT IS FULLY VACCINATED AGAINST COVID , PENDING THE BOOSTER. HAS NO FEVER OR SOB. [facility] Work Phone: documented in this encounter [facility] Phone: evaluation note* Diagnosis Lesion of tongue Other specified conditions of the tongue [facility] Phone: evaluation note* Diagnosis History of carcinoma of tongue- Primary Laryngeal edema Edema of larynx Primary cancer of [facility] cavity (HCC[facility] Seasonal allergies- Primary Allergic rhinitis, cause unspecified Iron deficiency anemia, unspecified iron deficiency anemia type Protein-calorie malnutrition, unspecified severity (CMS/HCC) Mixed hyperlipidemia Prediabetes Other abnormal glucose Need for influenza vaccination Need for prophylactic vaccination and inoculation against influenza Vitamin D deficiency Hypothyroidism, unspecified type documented in this encounter [facility] Work Phone: Evaluation note* Diagnosis Upper respiratory tract infection, unspecified type- Primary documented in this encounter [facility] Work Phone: Hospital Discharge instructions* Instructions* Poppy Keene MD - 02/26/2022 LARYNGOSCOPY AND VOICE SURGERY The larynx (voice box), vocal folds, and other structures of the throat are involved in breathing, swallowing, and voicing. Common problems of the throat include tumors or suspicion of cancer, vocal nodules and polyps, hoarseness, motion impairment of the vocal folds, and breathing or swallowing problems. Surgery or biopsy may be needed to evaluate or treat disease of the larynx and throat. REASONS FOR SURGERY- How is the decision made? Surgery on the larynx and throat is a decision to be made between the surgeon and the patient or family. Generally, surgery is recommended when one or more of the following symptoms or findings are noted: A lesion suspicious for cancer requires further inspection, biopsy, or excision A mass, tumor, cyst, or infection in the larynx or throat has been identified that cannot be managed with medication, voice therapy, or other treatment Voice problems or hoarseness due to abnormalities of the vocal folds Evaluation of the larynx and throat to identify causes of pain, breathing or swallowing problems, possibly due to tumors, infection, congenital abnormality, injury, or anatomic or functional problem of the laryngeal or throat structures Other problems as discussed with your doctor SURGICAL TREATMENT- What are the Risks, Alternatives, Potential Complications, and Benefits? Risks- The risks from laryngoscopy and voice surgery include: injury to the teeth, gums, tongue, throat tissues, vocal folds and larynx, breathing or swallowing tube, and may result in temporary or, rarely permanent, cosmetic deformity, pain, bleeding, change or loss of voice, swallowing problems, b reathing problems, need for additional surgical treatment, or other specific risks as discussed with your doctor. There is a small risk of severe breathing problems requiring tracheostomy (surgical breathing tube through the neck). There is also a risk of complications from anesthesia. Alternatives- Some conditions of the larynx and throat structures may be observed, treated with voice therapy, or with medication. Some cancerous lesions may be treated with radiation or treatment other than surgery, although a biopsy to confirm cancer is often needed. Sometimes a decision to not have treatment can have serious consequences that you should discuss with your doctor. Complications- Complications of surgery on the larynx and throat generally include: obstruction of breathing from swelling or bleeding; infection, sometimes requiring additional surgical treatment; injury with serious functional consequences to swallowing or breathing; hoarseness or changes in voice. Severe bleeding, permanent injury, or is uncommon. Notify your doctor immediately if breathing difficulty is noted after surgery. Benefits- Most larynx and throat surgery is without serious complications and with a good outcome. RECOVERY- What should I expect? Recovery biopsy or surgery of the larynx and throat is usually rapid and generally lasts 1-2 weeks.Recovery from infections or cancer may require longer periods. Expect to go home the same day from surgery unless informed otherwise by your doctor. Once you have gone home, common events in the recovery period and expectations of what is normal are listed below. Call your doctor if you have any questions or concerns that are not answered here. Pain- Pain is an expected part of recovery after surgery and is usually mild. Pain may be noted with swallowing or speaking. Over the counter medications such as Tylenol?, Aspirin?, Advil?, Motrin?, Aleve?, and ibuprofen are generally adequate for relief of pain. Take only the medication prescribedby your doctor. If pain worsens or is not relieved by the pain medication taken as prescribed, callyour doctor. Difficulty with breathing or swallowing- Please notify your doctor immediately if severe problems with breathing or swallowing develop. Mild changes may be normal and should improve with healing. Nausea and vomiting- These are usually due to the effects of anesthesia and should subside in the first day or two. If they continue, are related to taking the pain medication, or contain blood, notify your doctor. Fever- Notify your doctor for fever above 102.5 F, or one that persists for greater than 3 days. Eating and drinking- You may resume your regular diet after surgery unless a special diet is advised by your doctor. Activity- It is usually safe to resume normal activities unless advised otherwise by your doctor. Do not drive or operate machinery while on narcotic pain medication. MEDICATIONS- Ask your doctor about resuming your home medications. Do not take herbal medications without asking your doctor as these often have blood thinning properties which can increase the risk of bleeding. CONTINUING CARE- What additional care do I need? After you are discharged from the hospital, your doctor will see you for follow- up evaluation in approximately two weeks after surgery unless another time has been arranged. Call the office if an appointment has not been previously scheduled. You will likely be seen for several visits to ensure that healing is progressing well and that no complications or unexpected problems have been encountered. Additional medication, voice, or swallowing therapy may be needed to treat some conditions. If thesurgery was performed for the evaluation or treatment of cancer, additional surgery, radiation treatment, or chemotherapy may be advised as well as regular follow-up visits to monitor for any recurrent disease for many years may be advised. Smoking and alcohol abuse should be avoided to promote healing and reduce the risk of complications and recurrent disease. NOTICE: THIS DOCUMENT IS INTENDED SOLELY FOR PATIENT EDUCATIONAL PURPOSES AND IS PROVIDED A COURTESY TO PATIENTS OF DR. POPPY KEENE MD. IT IS NOT INTENDED A SUBSTITUTE FOR PROFESSIONAL MEDICALCARE OR ADVICE. THE PATIENT SHOULD SEEK ADVICE FROM THE PHYSICIAN IF THERE ARE ANY QUESTIONS ABOUT THE CONTENTS OR DIRECTIONS PROVIDED IN THIS DOCUMENT. documented in this encounterHelloworld Phone: reason for visit Narrative* Auth/Cert Specialty Diagnoses / Procedures Referred By Contac t Referred To Contact Diagnoses Lesion of palate Lesion of tongue History of tongue cancer Lesion of palate and tongue, history of tongue cancer Procedures LA BIOPSY TONGUE,ANTER 2/3 MOUTH LESION BIOPSY EXCISION- lesion of tongue and palate Poppy Keene MD [address] [place] [phone] [employer] [phone] [place] [address] Referral ID Status Reason Start Date Expiration Date Visits Re quested Visits Authorized 1 [facility] Phone: Family History Unknown Family Member Name Dates Details Family history of hypertensi on: Father(V17.49, Z82.49) Status:Active Family history of cardiac di sorder: Father(V17.49, Z82.49) Status:Active Family history of type 2 mciky betes mellitus: Sister(V18.0, Z83.3) Comments:2 SISTERS HAVE DIAB ETES; Status:Active Family history of malignant neoplasm: Mother, Sibling, Sister(V16.9, Z80.9) Comments:BOWEL CANCER (DAD). SISTER HAD GALLBLADDER CANCERDECEASED; Status:Active Unknown Family Member Name Dates Details Family history of hypertensi on: Father(V17.49, Z82.49) Status:Active Family history of cardiac di sorder: Father(V17.49, Z82.49) Status:Active Family history of type 2 micky betes mellitus: Sister(V18.0, Z83.3) Comments:2 SISTERS HAVE DIAB ETES; Status:Active Family history of malignant neoplasm: Mother, Sibling, Sister(V16.9, Z80.9) Comments:BOWEL CANCER (DAD). SISTER HAD GALLBLADDER CANCERDECEASED; Status:Active Unknown Family Member Name Dates Details Family history of hypertensi on: Father(V17.49, Z82.49) Status:Active Family history of cardiac di sorder: Father(V17.49, Z82.49) Status:Active Family history of type 2 micky betes mellitus: Sister(V18.0, Z83.3) Comments:2 SISTERS HAVE DIAB ETES; Status:Active Family history of malignant neoplasm: Mother, Sibling, Sister(V16.9, Z80.9) Comments:BOWEL CANCER (DAD). SISTER HAD GALLBLADDER CANCERDECEASED; Status:Active Unknown Family Member Name Dates Details Family history of hypertensi on: Father(V17.49, Z82.49) Status:Active Family history of cardiac di sorder: Father(V17.49, Z82.49) Status:Active Family history of type 2 micky betes mellitus: Sister(V18.0, Z83.3) Comments:2 SISTERS HAVE DIAB ETES; Status:Active Family history of malignant neoplasm: Mother, Sibling, Sister(V16.9, Z80.9) Comments:BOWEL CANCER (DAD). SISTER HAD GALLBLADDER CANCERDECEASED; Status:Active Unknown Family Member Name Dates Details Family history of hypertensi on: Father(V17.49, Z82.49) Status:Active Family history of cardiac di sorder: Father(V17.49, Z82.49) Status:Active Family history of type 2 micky betes mellitus: Sister(V18.0, Z83.3) Comments:2 SISTERS HAVE DIAB ETES; Status:Active Family history of malignant neoplasm: Mother, Sibling, Sister(V16.9, Z80.9) Comments:BOWEL CANCER (DAD). SISTER HAD GALLBLADDER CANCERDECEASED; Status:Active Unknown Family Member Name Dates Details Family history of hypertensi on: Father(V17.49, Z82.49) Status:Active Family history of cardiac di sorder: Father(V17.49, Z82.49) Status:Active Family history of type 2 micky betes mellitus: Sister(V18.0, Z83.3) Comments:2 SISTERS HAVE DIAB ETES; Status:Active Family history of malignant neoplasm: Mother, Sibling, Sister(V16.9, Z80.9) Comments:BOWEL CANCER (DAD). SISTER HAD GALLBLADDER CANCERDECEASED; Status:Active Unknown Family Member Name Dates Details Family history of hypertensi on: Father(V17.49, Z82.49) Status:Active Family history of cardiac di sorder: Father(V17.49, Z82.49) Status:Active Family history of type 2 micky betes mellitus: Sister(V18.0, Z83.3) Comments:2 SISTERS HAVE DIAB ETES; Status:Active Family history of malignant neoplasm: Mother, Sibling, Sister(V16.9, Z80.9) Comments:BOWEL CANCER (DAD). SISTER HAD GALLBLADDER CANCERDECEASED; Status:Active Unknown Family Member Name Dates Details Family history of hypertensi on: Father(V17.49, Z82.49) Status:Active Family history of cardiac di sorder: Father(V17.49, Z82.49) Status:Active Family history of type 2 micky betes mellitus: Sister(V18.0, Z83.3) Comments:2 SISTERS HAVE DIAB ETES; Status:Active Family history of malignant neoplasm: Mother, Sibling, Sister(V16.9, Z80.9) Comments:BOWEL CANCER (DAD). SISTER HAD GALLBLADDER CANCERDECEASED; Status:Active Unknown Family Member Name Dates Details Family history of malignant neoplasm: Mother, Sibling, Sister(V16.9, Z80.9) Comments:BOWEL CANCER (DAD). SISTER HAD GALLBLADDER CANCERDECEASED; Status:Active Family history of type 2 micky betes mellitus: Sister(V18.0, Z83.3) Comments:2 SISTERS HAVE DIAB ETES; Status:Active Family history of cardiac di sorder: Father(V17.49, Z82.49) Status:Active Family history of hypertensi on: Father(V17.49, Z82.49) Status:Active Unknown Family Member Name Dates Details Family history of hypertensi on: Father(V17.49, Z82.49) Status:Active Family history of cardiac di sorder: Father(V17.49, Z82.49) Status:Active Family history of type 2 micky betes mellitus: Sister(V18.0, Z83.3) Comments:2 SISTERS HAVE DIAB ETES; Status:Active Family history of malignant neoplasm: Mother, Sibling, Sister(V16.9, Z80.9) Comments:BOWEL CANCER (DAD). SISTER HAD GALLBLADDER CANCERDECEASED; Status:Active Unknown Family Member Name Dates Details Family history of hypertensi on: Father(V17.49, Z82.49) Status:Active Family history of cardiac di sorder: Father(V17.49, Z82.49) Status:Active Family history of type 2 micky betes mellitus: Sister(V18.0, Z83.3) Comments:2 SISTERS HAVE DIAB ETES; Status:Active Family history of malignant neoplasm: Mother, Sibling, Sister(V16.9, Z80.9) Comments:BOWEL CANCER (DAD). SISTER HAD GALLBLADDER CANCERDECEASED; Status:Active Unknown Family Member Name Dates Details Family history of hypertensi on: Father(V17.49, Z82.49) Status:Active Family history of cardiac di sorder: Father(V17.49, Z82.49) Status:Active Family history of type 2 micky betes mellitus: Sister(V18.0, Z83.3) Comments:2 SISTERS HAVE DIAB ETES; Status:Active Family history of malignant neoplasm: Mother, Sibling, Sister(V16.9, Z80.9) Comments:BOWEL CANCER (DAD). SISTER HAD GALLBLADDER CANCERDECEASED; Status:Active Unknown Family Member Name Dates Details Family history of hypertensi on: Father(V17.49, Z82.49) Status:Active Family history of cardiac di sorder: Father(V17.49, Z82.49) Status:Active Family history of type 2 micky betes mellitus: Sister(V18.0, Z83.3) Comments:2 SISTERS HAVE DIAB ETES; Status:Active Family history of malignant neoplasm: Mother, Sibling, Sister(V16.9, Z80.9) Comments:BOWEL CANCER (DAD). SISTER HAD GALLBLADDER CANCERDECEASED; Status:Active Unknown Family Member Name Dates Details Family history of hypertensi on: Father(V17.49, Z82.49) Status:Active Family history of cardiac di sorder: Father(V17.49, Z82.49) Status:Active Family history of type 2 micky betes mellitus: Sister(V18.0, Z83.3) Comments:2 SISTERS HAVE DIAB ETES; Status:Active Family history of malignant neoplasm: Mother, Sibling, Sister(V16.9, Z80.9) Comments:BOWEL CANCER (DAD). SISTER HAD GALLBLADDER CANCERDECEASED; Status:Active Chief Complaint * A telephone visit (audio only) between the patient (at the originating site) and the provider (at the distant site) was utilized to provide this telehealth service. * TELEPHONE- RIGHT SIDE HEADACHE,RIGHT CHEEK PAIN,RUNNY/STUFFY NOSE,RIGHT EAR ACHE OFF/ON 10 DAYS. NOOTHER SYMPTOMS. DAUGHTER DX COVID 2 WEEKS AGO. * A telephone visit (audio only) between the patient (at the originating site) and the provider (at the distant site) was utilized to provide this telehealth service. * Verbal consent was requested and obtained from KAY RODRIGUEZ on this date, 11/28/2021 08:20 AM , for a telehealth visit. * TELEPHONE; 1 WK F/U COVID TEST; PT STATES THAT SHE IS FEELING BETTER Reason for Referral Specialty Diagnoses / Procedures Referred By Contac t Referred To Contact Cardiology Diagnoses Lesion of tongue Procedures EKG 12 lead Poppy Keene MD [address] [place] [address] Referral ID Status Reason Start Date Expiration Date Visits Re quested Visits Authorized Open 02/25/2022 02/25/2023 1 1 Advance Directives Latest Code Status on File Code Status Date Activated Date Inactivated Comments Full Code 02/26/2022 8:53 AM Summary Purpose Additional Source Comments Care Teams (unrecognized sec tion and content) Drill Instructor Relationship Specialty Start Date End Date Reyna Martel APRN - CNP [address] [place] [address] PCP - General 02/18/22 Drill Instructor Relationship Specialty Start Date End Date Reyna Martel APRN - CNP [address] [place] [address] PCP - General 02/18/22 Drill Instructor Relationship Specialty Start Date End Date Annelise Brandt MD [address] [place] [address] PCP - General Internal Medicine 08/08/22 Drill Instructor Relationship Specialty Start Date End Date Reyna Jackson, KNOCK UP ASSEMBLER-LAMINATION OPERATOR [address] [place] [address] PCP - General 01/18/21 Reyna Jackson, KNOCK UP ASSEMBLER-LAMINATION OPERATOR [address] [facility] [place] [address] PCP - MMO Medicare Advantage PCP 12/25/22 Drill Instructor Relationship Specialty Start Date End Date Reyna Jackson, KNOCK UP ASSEMBLER-LAMINATION OPERATOR [address] [facility] [place] [address] PCP - General 01/18/21 Reyna Jackson, KNOCK UP ASSEMBLER-LAMINATION OPERATOR [address] [facility] [place] [address] PCP - O Medicare Advantage PCP 12/25/22 Scheduled Active and Recently Administ ered Medications (unrecognized section and content) Continuous Medication Order 02/24/2022 02/25/2022 02/26/2022 lactated ringers infusion (CANCELED) IntraVENous, at 50 mL/hr, CONTINUOUS, Starting on Fri02/26/22 at 0915, Pre-op (day of surgery) 0936 (New Bag - Prov ider: Jessi Farias RN)1028 (NoRateChange - Provider: VISHNU Banks CRNA)1115 (Anesthesia Volume Adjustment - Provider: VISHNU Banks CRNA) lactated ringers infusion IntraVENous, at 125 mL/hr, CONTINUOUS, Starting on Fri02/26/22 at 1145, Post-op 1145 (Due) PRN Medication Order 02/24/2022 02/25/2022 02/26/2022 0.9 % sodium chloride infusion IntraVENous, at 5-250 mL/hr, PRN, if patient receiving piggyback infusions and maintenance fluids are not ordered OR KVO fluids to protect IV site / prevent frequent line interruptions/ long duration, Starting on Fri02/26/22 at 1125, For piggyback infusion, administer at same rate as piggyback for a total of 25 mL. Enter 25 mL into dose field and piggyback rate into rate field of order. If piggyback is infusing at a rate less than 100 mL/hr, enter 25 mL into dose field and 100 mL/hr into rate field of order. For KVO fluids, enter rate of 20 mL/hr or less into rate field of order., Post-op lidocaine-EPINEPHrine 1 %-1:[id number] injection (CANCELED) PRN, Starting on Fri02/26/22 at 1111, Until Fri02/26/22 at 1125, Intra-op 1111 (Given - Provid er: Poppy Keene MD) sodium chloride flush 0.9 % injection 5-40 mL 5-40 mL, IntraVENous, PRN, Starting on Fri02/26/22 at 1125, Until Discontinued, Line Care, After every IV line use, For Line Patency: Peripheral IV = 5 mL; Midline or Central Line = 10 mL/lumen. If following IV push medication, administer flush at same rate as the IV push. Flush volume is determined by type of infusion therapy being given. For non-viscous solutions use: Peripheral IV = 5 mL Midline or Central Line = 10 mL/lumen For viscous solutions (i.e. blood components, parenteral nutrition, contrast media, or after obtaining blood sample) use: Peripheral IV = 10 mL Midline or Central Line = 20 mL/lumen, Post-op 1242 (Given - Provid er: Jessi Farias RN) INFORMATION SOURCE (unrecogn ized section and content) DATE CREATED AUTHOR AUTHOR'S ORGANIZ ATION 08/01/2022 [facility] DATE CREATED AUTHOR AUTHOR'S ORGANIZ ATION 12/03/2022 [facility] DATE CREATED AUTHOR AUTHOR'S ORGANIZ ATION 01/21/2023 [facility] DATE CREATED AUTHOR AUTHOR'S ORGANIZ ATION 07/28/2023 [facility] DATE CREATED AUTHOR AUTHOR'S ORGANIZ ATION 08/01/2023 [facility] DATE CREATED AUTHOR AUTHOR'S ORGANIZ ATION 08/05/2023 [facility] Reason for Visit (unrecogniz ed section and content) Specialty Diagnoses / Procedures Referred By Contac t Referred To Contact Otolaryngology Diagnoses Primary cancer of oral cavity (HCC) Korey Phelps, DO [address] [place] [address] Poppy Keene MD [address] [facility] [address] [place] [address] Referral ID Status Reason Start Date Expiration Date V isits Requested Visits Authorized [id number] Pending Review 08/08/2022 08/08/2023 1 1 Reason Comments Follow-up 6 MONTH LAB RESULTS Reason Comments Follow-up PT CO COVID EXPOSURE AND CO HEADACHE SINUS PAIN SYMPTOMS STARTED FRIDAY A LOT COUGHING MILD FEVER FOR RECORDS PERTAINING TO PATIENTS WHO ARE OR HAVE BEEN ENROLLED IN A CHEMICAL DEPENDENCY/SUBSTANCEABUSE PROGRAM, SOME INFORMATION MAY BE OMITTED. This clinical summary was aggregated from multiple sources. Caution should be exercised in using it in the provision of clinical care. This summary normalizes information from multiple sources, and as a consequence, information in this document may materially change the coding, format and clinical context of patient data. In addition, data may be omitted in some cases. CLINICAL DECISIONS SHOULD BE BASED ON THE PRIMARY CLINICAL RECORDS. [employer] provides no warranty or guarantee of the accuracy or completeness of information in this document.
[2023-11-08 19:33] LABS: Absolute Neutrophil Count 4.4 X10^3/uL (2.0-7.7); Basophil# 0.02 X10^3/uL; Basophil% 0.4 % (0-1); Hematocrit 33.1 % (37-47); Hemoglobin 11.4 g/dL (12.0-15.0); Lymphocyte % 7.9 % (19-41); Mean Corp Hgb Conc 34.4 g/dL (32-36); Mean Corpuscular Volume 89.9 fL (81-99); Mean Platelet Vol. 11.2 fl (6.2-12.0); Monocyte# 0.18 X10^3/uL; Monocyte% 3.6 % (0-10); NRBC Flagged by Analyzer 0 % (0-5); Neutrophil # 4.43 X10^3/uL (2.7-7.7); Neutrophil % 87.5 % (47-70); POSITIVE COUNT YES; POSITIVE DIFFERENTIAL YES; POSITIVE MORPHOLOGY YES; Platelet Count 66 K/mm3 (150-450); RBC Distribution Width CV 12.6 % (11.6-14.6); Red Blood Count 3.68 M/mm3 (4.2-5.4); White Blood Count 5.1 K/mm3 (4.4-11.0)
[2023-11-08 19:34] LABS: Differential Indicated SCAN CRITERIA MET
[2023-11-08 19:46] LABS: Mucous, Urine 0 SEEN /hpf (<or=2+)
[2023-11-08 19:55] LABS: Color, Urine Yellow (Yellow); Glucose, Dipstick Normal (Normal); Ketone-Dipstick 5 mg/dl (Negative); Leukocyte Esterase-Dipstick 100 /ul (Negative); Nitrite-Dipstick Negative (Negative); Occult Blood-Urine 50 /ul (Negative); Protein-Dipstick 100 mg/dl (Negative); Specific Gravity, Urine 1.015 (1.002-1.030); Urine Bilirubin Dipstick Negative (Negative); Urine Clarity Clear (Clear); Urine Urobilinogen Normal (Normal)
[2023-11-08 19:56] LABS: Differential Comment SCANNED; Platelet Estimate MKD DEC (ADEQ); Reactive Lymphocyte 1+
[2023-11-08 19:57] LABS: Anion Gap 8 (5-15); BUN 58 mg/dL (7-18); BUN/Creat Ratio 50.9 RATIO (10-20); Calcium,Total 9.2 mg/dL (8.5-10.1); Chloride 101 mmol/L (98-107); Creatinine, Serum 1.14 mg/dL (0.55-1.02); EST Glomerular Filtration Rate 50 mL/min (>60); Est Glom Filt Rate - Afr Amer 60 mL/min (>60); Estimated Creatinine Clearance 29.71 ml/min; Glucose 87 mg/dL (74-106); Potassium 3.6 mmol/L (3.5-5.1); Sodium Level 135 mmol/L (136-145)
[2023-11-08 20:02] LABS: Bacteria RARE /hpf (None Seen); Fine Granular Cast- Urine 0-5 SEEN /lpf (0-5); Squamous Epithelial Cells - UA 0-5 SEEN /hpf (5-10); White Blood Cells 0-5 SEEN /hpf (0-5)
[2023-11-08 20:03] LABS: Red Blood Cells-Urine 0-5 SEEN /hpf (0-5)
[2023-11-08 20:56] VITALS: BP 115/69; PULSE 73; RESP 16; O2SAT 97
--- NOTE | 2023-11-08 21:00 | ED.RN ---
PORT DE ACCESSED WITH HEPARIN FLUSH, SITE INTACT.
== END 2023-11-08 20:57 | disposition home or self-care (01) ==
PROVIDERS: Nurse Practitioner; Emergency Provider Emergency Medicine; PCP Nurse Practitioner Family; Visit Provider Emergency Medicine
DX: B34.9 Viral infection, unspecified (principal); E86.0 Dehydration
CPT/HCPCS: 71045; 80048; 81001; 85025; 87631; 96360; 99282; J7030; A4216

== ENCOUNTER → 2023-12-24 | Outpatient (CLI) | payer MEDICARE, SELFPAY ==
[2020-07-10 13:29] VITALS: BMI 21.4
--- NOTE | 2023-12-24 09:06 | ST.MBS ---
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 From 07/24/2020 - 09/06/2020 she received adjuvant chemoradiation. She received speech therapy services intermittently during and following radiation treatment. She is currently recommended for home oropharyngeal exercise program and yearly MBSS to monitor risk for worsening dysphagia s/p radiation. The patient has participated in 3 previous MBSS (11/01/2020, 05/03/2021, 12/10/2022). Most recent MBSS on 12/10/2022 revealed moderate-severe oropharyngeal dysphagia with recommendations for minced and moist textures / thin liquids with use of aspiration precautions. She attended BSE and 3 follow-up dysphagia therapy sessions for continued education re: recommended diet textures, aspiration precautions, and oropharyngeal exercise program. Currently, she reports consuming soft solids and thin liquids with a slow rate, alternating bites/sips. No concerns for reflux, regurgitation, or sensation of retention. Of note, she had an ER visit in October due to dehydration. Current Diet Ordered: Soft solids / Thin liquids Dentition: Natural Teeth Mental Status: WNL Respiratory Status: Oxygenating on Room Air Penetration-Aspiration Scale Penetration-Aspiration Scale: OBJECTIVE ASSESSMENT OF SWALLOW FUNCTION (QUANTITATIVE ? PER TRIAL): PENETRATION / ASPIRATION SCALE (RANKIN): 1 = does not enter airway 2 = enters airway/above vocal folds/ejected 3 = enters airway/above vocal folds/not ejected 4 = enters airway/contacts vocal folds/ejected 5 = enters airway/contacts vocal folds/not ejected 6 = enters airway/below vocal folds/ejected 7 = enters airway/below vocal folds/not ejected despite effort 8 = enters airway/below vocal folds/no effort VIDEOFLOROSCOPIC SCALE SCORE (RANKIN): Grade I = aspiration of material that has penetrated into the laryngeal vestibule, intact cough reflex Grade II = aspiration < 10 % of the bolus, intact cough reflex Grade III = aspiration of < 10 % of the bolus, reduced cough reflex or aspiration of > 10 % of the bolus, intact cough reflex Grade IV = aspiration of > 10 % of the bolus, reduced cough reflex Penetration-Aspiration Scale Score Thin Liquid via teaspoon: Result: 1= does not enter airway Thin Liquid via teaspoon Trial 2: Result: 2= enter airway/above vocal folds/ejected Thin Liquid via small single sip: cup: Result: 2= enter airway/above vocal folds/ejected [place] Thick Liquid via small single sip: cup: Result: 2= enter airway/above vocal folds/ejected Pudding via teaspoon: Result: 1= does not enter airway (trace post-prandial penetration from nectar trial) Comment: Esophageal screen 1/2 Potato Chip covered in barium pudding: Result: 1= does not enter airway Thin Liquid via single sip: straw: Result: 2= enter airway/above vocal folds/ejected Comment: Esophageal screen Thin Liquid via sequential sips:straw: Result: 2= enter airway/above vocal folds/ejected Comment: Esophageal screen Oral Phase Labial Seal: Escape beyond mid-chin Tongue Control During Bolus Hold: Posterior escape of greater than half of bolus Bolus Preparation/Mastication: Disorganized chewing/mashing with solid pieces of bolus unchewed Bolus Transport/Lingual Motion: Brisk tongue motion Oral Residue: Residue collection on oral structures Pharyngeal Phase Initiation of Pharyngeal Swallow: Bolus head in pyriforms Soft Palate Elevation: Trace column of contrast/air between soft palate and pharyngeal wall Laryngeal Elevation: Comp. Superior move thyroid cart w/comp. apprx arytenoid cart-epig pet Anterior Hyoid Excursion: Partial anterior movement Epiglottic Movement: Partial inversion Laryngeal Vestibule Closure at Height of Swallow: Incomplete; narrow column of air/contrast in laryngeal vestibule Pharyngeal Stripping Wave: Present - diminished Pharyngoesophageal Segment Opening: Complete distension and complete duration; no obstruction of flow Tongue Base Retraction: Narrow column of contrast between tongue base & post. pharyngeal wall Pharyngeal Residue: Majority of contrast within or on pharyngeal structures (~50% of chip with barium pudding) Esophageal Phase Esophageal Clearance: Esophageal retention Diagnosis/Impression Diagnosis: Mild-moderate oropharyngeal dysphagia R13.12 Impression: The oral phase is primarily marked by... -Decreased bolus control with <1/2 of the bolus spilling posteriorly to the pyriforms prior to swallow onset observed with thin liquids especially. -Brisk, but limited tongue motion d/t left pankaj glossectomy for A-P transport. -Mild oral residue after the swallow with large sips, which mostly cleared with independent initiation of multiple swallows as needed. Mild-mod residues of pudding/chips, which improved with liquid wash. -Slow, disorganized tongue motion observed during trial of regular textures. Small un-chewed pieces of potato chip in the bolus. The pharyngeal phase is primarily marked by... -Decreased airway closure during the swallow due to mildly decreased anterior hyoid excursion, partial epiglottic inversion, and decreased laryngeal elevation. -Decreased tongue base retraction and diminished pharyngeal stripping wave resulting in a majority of the contrast (~50% of chip) on the pharyngeal structures after the swallow. -Consistent laryngeal penetration observed across thin and nectar thick liquid consistencies which all successfully ejected from the laryngeal vestibule. No aspiration observed. The esophageal phase is primarily marked by... -Esophageal retention of pudding in upper esophagus. Thin liquid wash was effective in clearing pudding contrast from the upper esophagus. Recommendations Diet: Mechanical Soft Textures (Soft and bite size textures - IDDSI Level 6) and Thin Liquids Comment: Modified [place] Free Water Protocol to encourage improved hydration: Water is okay to be consumed sequentially after oral care and with no other food/drink. If consuming other food/drink, resume single sips. Compensatory Strategies: Small Bites, Small Sips, Slow Rate, Alternate bites/solids and sips/liquids, Sitting upright and Remain sitting upright for 30 minutes after PO intake Recommend Repeat Modified Barium Swallow: Yes Comment: Repeat MBS study in 6-12 months to monitor swallow function as the patient is at risk for worsening dysphagia and aspiration risk s/p chemoradiation treatment. Need for Skilled Speech Therapy Services: No Comment: Pt verbalized understanding of recommended textures, aspiration precautions, and home oropharyngeal exercise program. Please re-consult if concern for worsening dysphagia prior to repeat MBSS. Education Completed: 1. Described result of evaluation. and 5. Patient demonstrates recommended strategies. Status Active ST Patient: Active Contact Information [facility]:: Sophia Alvarado M.A. [facility] OPER[facility] Speech-Language Pathologist [facility] [address] [place] [address] [email or web address] [phone]
--- OUTSIDE RECORDS SUMMARY | 2023-12-24 22:29 | XMS RPT_ITS | CCD ---
Author Name Unknown Address [address] [place] [address] Organization [facility] Care Team Providers Care Marketing Forecaster Name Role Phone Reyna Martel Unavailable Unavailable Unavailable Martel MANAGER OF TRANSPORTATION - OIL SEAL ASSEMBLER, Reyna Primary Care Provider [phone] MARTEL, REYNA Primary Care Unavailable KEENE, POPPY R Referring Unavailable MARTEL, REYNA Primary Care Unavailable KEENE, POPPY R Referring Unavailable MARTEL, REYNA Primary Care Unavailable KEENE, POPPY R Admitting Unavailable KEENE, POPPY R Attending Unavailable MARTEL, REYNA Primary Care Unavailable LOU CHAVEZ Referring Unavailable Karly SAMPSON, Annelise Winn Primary Care Prov ider Manolo, Reyna Attending Unavailable Jackson, Reyna Referring Unavailable Jackson, Reyna Primary Care Unavailable Jackson, Reyna Attending Unavailable Jackson, Reyna Referring Unavailable Jackson, Reyna Primary Care Unavailable Jackson, Reyna Attending Unavailable Jackson, Reyna Referring Unavailable Jackson, Reyna Primary Care Unavailable Jackson, Ms. Reyna Chitra Attending Unavailab le Jackson, Ms. Reyna Chitra Primary Care Unavailab le JACKSON, REYNA D Primary Care Unavailable Jackson MANAGER OF TRANSPORTATION-OIL SEAL ASSEMBLER, Reyna D Primary Care Provider [phone] Manolo MANAGER OF TRANSPORTATION-OIL SEAL ASSEMBLER, Reyna D Unavailable REYNA JACKSON D Attending Unavailable JACKSON, REYNA D Primary Care Unavailable ANNELISE REYES Attending Unavailable JACKSON, REYNA D Primary Care Unavailable JACKSON, REYNA D Attending Unavailable JACKSON, REYNA D Primary Care Unavailable ANNELISE REYES Primary Care Unav ailable POPPY KEENE Attending Unavailable Allergies Allergy Classification Reported Allergen(s) Allergy Type Date of Onset Reaction(s) Facility Penicillins (antibiotic) (3 sources) Penicillins; Translations: [Penicillins] Drug Allergy Rash [facility] Work Phone: (17 sources) Penicillins; Translations: [Penicillins] Allergy to drug (finding) 6 Hives [facility] Work Phone: (5 sources) diazePAM; Translations: [DIAZEPAM] Drug Allergy 0 Nausea And Vomiting [facility] (3 sources) Wheat gluten extract Drug Allergy 2 Diarrhea [facility] Work Phone: (3 sources) Milk-Related Compounds Propensity to adverse reactions to drug 2 Diarrhea [facility] Work Phone: (5 sources) Gluten; Translations: [GLUTEN PROTEIN] Drug Intolerance 6 Diarrhea, Other, GI Intolerance, Other (See Comments) [facility] Work Phone: (3 sources) Penicillins Drug Intolerance 6 Rash, Hives [facility] (2 sources) cow milk allergenic extract; Translations: [MILK] Drug Allergy 0 Diarrhea [facility] (2 sources) Milk; Translations: [MILK CONTAINING PRODUCTS (DAIRY)] Propensity to adverse reactions to drug 2 Diarrhea [facility] Medications Current Medications Medication Drug Class(es) Dates Sig (Normalized) Sig (Original) ascorbic acid 1000 mg oral tablet (5 sources) Vitamin C Start: 07-19-2020 ascorbic acid, [...] te Episodic/Chronic Cancer of head and neck (17 sources) Malignant tumor of tongue; Translations: [Malignant neoplasm of tongue, unspecified] Onset: 06-19-2020 Chronic Past or Other Problems Problem Classification Problem Date Documented Da te Episodic/Chronic Administrative/social admission (2 sources) Other specified counseling; Translations: [Other specified counseling] Onset: 01-30-2023 Episodic Deficiency and other anemia (17 sources) Iron deficiency anemia; Translations: [Iron deficiency anemia, unspecified] Onset: 12-17-2022 08-01-2023 Episodic Deficiency and other anemia (4 sources) Iron deficiency anemia, unspecified; Translations: [Iron deficiency anemia, unspecified] Onset: 12-17-2022 Episodic Diabetes mellitus without complication (20 sources) [...] Time Vital Sign Value Performing Clinician Facility 12-02-2023 08:00-0500 Body height 147.3 cm Poppy Keene MD Work Phone: [facility] 12-02-2023 08:00-0500 Body mass index (BMI) [Ratio] 18.68 kg/m2 Poppy Keene MD Work Phone: [facility] 12-02-2023 08:00-0500 Body temperature 97.3 [degF] Poppy Keene MD Work Phone: [facility] 12-02-2023 08:00-0500 Body weight 40.55 kg Poppy Keene MD Work Phone: [facility] 08-01-2023 07:38-0400 Body height 147.3 cm Reyna Jackson MANAGER OF TRANSPORTATION-OIL SEAL ASSEMBLER Work Phone: [facility] 08-01-2023 07:38-0400 Body mass index (BMI) [Ratio] 20.06 kg/m2 Reyna Jackson MANAGER OF TRANSPORTATION-OIL SEAL ASSEMBLER Work Phone: [facility] 08-01-2023 07:38-0400 Body weight 43.55 kg Reyna Jackson MANAGER OF TRANSPORTATION-OIL SEAL ASSEMBLER Work Phone: [facility] 08-01-2023 07:38-0400 Diastolic blood pressure 52 mm[Hg] Reyna Villaley MANAGER OF TRANSPORTATION-OIL SEAL ASSEMBLER Work Phone: [facility] 08-01-2023 07:38-0400 Heart rate 66 /min Reyna aJckson MANAGER OF TRANSPORTATION-OIL SEAL ASSEMBLER Work Phone: [facility] 08-01-2023 07:38-0400 SaO2% (BldA) [Mass fraction] 98 % Reyna Jackson MANAGER OF TRANSPORTATION-OIL SEAL ASSEMBLER Work Phone: [facility] 08-01-2023 07:38-0400 Systolic blood pressure 94 mm[Hg] Reyna Jackson MANAGER OF TRANSPORTATION-OIL SEAL ASSEMBLER Work Phone: [facility] 12-02-2022 07:56-0500 Body height 147.3 cm Poppy Keene MD Work Phone: [facility] 12-02-2022 07:56-0500 Body mass index (BMI) [Ratio] 19.23 kg/m2 Poppy Keene MD Work Phone: [facility] 12-02-2022 07:56-0500 Body temperature 97.7 [degF] Poppy Keene MD Work Phone: [facility] 12-02-2022 07:56-0500 Body weight 41.73 kg Poppy Keene MD Work Phone: [facility] 12-02-2022 07:56-0500 Diastolic blood pressure 70 mm[Hg] Poppy Keene MD Work Phone: [facility] 12-02-2022 07:56-0500 Systolic blood pressure 109 mm[Hg] Poppy Keene MD Work Phone: [facility] 08-01-2022 07:48-0400 Body height 147.32 cm Reyna Mahesh GloriaMartel Work Phone: [facility] Work Phone: 08-01-2022 07:48-0400 Body mass index (BMI) [Ratio] 19.86 kg/m2 Reyna Mahesh GloriaMartel Work Phone: [facility] Work Phone: 08-01-2022 07:48-0400 Body surface area Derived from formula 1.33 m2 Reyna Mahesh GloriaMartel Work Phone: [facility] Work Phone: 08-01-2022 07:48-0400 Body weight 43.09 kg Reyna Mahesh GloriaMartel Work Phone: [facility] Work Phone: 08-01-2022 07:48-0400 Diastolic blood pressure 61 mm[Hg] Reyna Mahesh GloriaMartel Work Phone: [facility] Work Phone: 08-01-2022 07:48-0400 Heart rate 64 /min Reyna Mahesh GloriaMartel Work Phone: [facility] Work Phone: 08-01-2022 07:48-0400 Systolic blood pressure 99 mm[Hg] Ryena Gloriakins Work Phone: [facility] Work Phone: 02-26-2022 12:30-0400 Diastolic blood pressure 70 mm[Hg] Poppy Keene MD Work Phone: [facility] 02-26-2022 12:30-0400 Heart rate 57 /min Poppy Keene MD Work Phone: [facility] 02-26-2022 12:30-0400 Respiratory rate 12 /min Poppy Keene MD Work Phone: [facility] 02-26-2022 12:30-0400 SaO2% (BldA) [Mass fraction] 97 % Poppy Keene MD Work Phone: [facility] 02-26-2022 12:30-0400 Systolic blood pressure 122 mm[Hg] Poppy Keene MD Work Phone: [facility] 02-26-2022 11:55-0400 Body temperature 98.1 [degF] Poppy Keene MD Work Phone: [facility] 02-19-2022 12:33-0400 Body height 147.3 cm Poppy Keene MD Work Phone: [facility] 02-19-2022 12:33-0400 Body mass index (BMI) [Ratio] 19.65 kg/m2 Poppy Keene MD Work Phone: [facility] 02-19-2022 12:33-0400 Body weight 42.64 kg Poppy Keene MD Work Phone: [facility] 01-31-2022 07:58-0400 Body height 147.32 cm Reyna Martel Work Phone: [facility] Work Phone: 01-31-2022 07:58-0400 Body mass index (BMI) [Ratio] 19.65 kg/m2 Reyna Martel Work Phone: [facility] Work Phone: 01-31-2022 07:58-0400 Body surface area Derived from formula 1.32 m2 Reyna Martel Work Phone: [facility] Work Phone: 01-31-2022 07:58-0400 Body weight 42.64 kg Reyna Martel Work Phone: [facility] Work Phone: 01-31-2022 07:58-0400 Diastolic blood pressure 60 mm[Hg] Reyna D Martel Work Phone: [facility] Work Phone: 01-31-2022 07:58-0400 Heart rate 60 /min Reyna D Martel Work Phone: [facility] Work Phone: 01-31-2022 07:58-0400 Systolic blood pressure 96 mm[Hg] Reyna D Martel Work Phone: [facility] Work Phone: 06-28-2021 13:09-0400 Body height 147.32 cm Reyna D Martel Work Phone: [facility] Work Phone: 06-28-2021 13:09-0400 Body mass index (BMI) [Ratio] 19.44 kg/m2 Reyna D Martel Work Phone: [facility] Work Phone: 06-28-2021 13:09-0400 Body surface area Derived from formula 1.32 m2 Reyna D Martel Work Phone: [facility] Work Phone: 06-28-2021 13:09-0400 Body weight 42.18 kg Reyna D Martel Work Phone: [facility] Work Phone: 06-28-2021 13:09-0400 Diastolic blood pressure 62 mm[Hg] Reyna D Martel Work Phone: [facility] Work Phone: 06-28-2021 13:09-0400 Heart rate 68 /min Reyna D Martel Work Phone: [facility] Work Phone: 06-28-2021 13:09-0400 Systolic blood pressure 98 mm[Hg] Reyna D Martel Work Phone: [facility] Work Phone: 05-31-2021 15:51-0400 Body height 147.32 cm Reyna Gloriakins Work Phone: [facility] Work Phone: 05-31-2021 15:51-0400 Body mass index (BMI) [Ratio] 19.02 kg/m2 Reyna Gloriakins Work Phone: [facility] Work Phone: 05-31-2021 15:51-0400 Body surface area Derived from formula 1.3 m2 Reyna Martel Work Phone: [facility] Work Phone: 05-31-2021 15:51-0400 Body weight 41.28 kg Reyna Martel Work Phone: [facility] Work Phone: 05-31-2021 15:51-0400 Diastolic blood pressure 64 mm[Hg] Reyna Martel Work Phone: [facility] Work Phone: 05-31-2021 15:51-0400 Heart rate 62 /min Reyna Martel Work Phone: [facility] Work Phone: 05-31-2021 15:51-0400 Systolic blood pressure 94 mm[Hg] Reyna Martel Work Phone: [facility] Work Phone: Encounters Encounter Date Encounter Type Care Provider Facility Start: 12-02-2023 End: 12-02-2023 ambulatory ANNELISE REYES [facility] Start: 12-02-2023 End: 12-02-2023 Office outpatient visit 15 minutes Poppy Keene MD Work Phone: [facility] Procedures Date Procedure Procedure Detail Performing Clinician [...] JACKSON Start: 07-21-2023 IRON AND TIBC REYNA NAYOLR Y Start: 07-21-2023 Lipid panel REYNA JACKSON Start: 07-21-2023 PTH, INTACT REYNA JACKSON Start: 07-21-2023 TSH WITH REFLEX TO F REE T4 IF ABNORMAL REYNA JACKSON Start: 07-21-2023 VITAMIN D 25-HYDROXY,TOTAL REYNA JACKSON Start: 07-21-2023 Lipid 1996 panel - S steven or Plasma Reyna Jackson MANAGER OF TRANSPORTATION-OIL SEAL ASSEMBLER Work Phone: Start: 07-21-2023 Thyrotropin [Units/v olume] in Serum or Plasma Reyna Villaley MANAGER OF TRANSPORTATION-OIL SEAL ASSEMBLER Work Phone: Start: 02-07-2023 Mammography Reyna Jackson MANAGER OF TRANSPORTATION-OIL SEAL ASSEMBLER Work Phone: Start: 04-26-2022 Biopsy of tongue Reyna Martel Work Phone: Plan of Treatment Date Care Activity Detail Author Start: 03-22-2031 Screening for malignant neoplasm of colon [facility] Start: 07-21-2028 Lipid panel Lipid Panel [facility] Start: 12-06-2024 End: 12-06-2024 Patient encounter procedure 12/06/2024 8:00 AM EST Office Visit [facility] [address] [place] [phone] Poppy Keene MD [address] [place] [address] [place] [id number] [facility] Start: 07-21-2024 Diabetes mellitus screening Diabetes Screening [facility] Start: 07-21-2024 Hemoglobin A1c measurement Diabetes: Hemoglobin A1C [facility] Start: 09-25-2024 Thyroid stimulating hormone measurement TSH Level [facility] Start: 02-13-2024 End: 02-13-2024 Patient encounter procedure 02/13/2024 8:00 AM EDT Office Visit [facility] [address] [place] [id number] Reyna Jackson, MANAGER OF TRANSPORTATION-OIL SEAL ASSEMBLER [address] [place] [address] [facility] Start: 02-08-2024 Screening for malignant neoplasm of breast Mammogram [facility] Start: 02-01-2024 Medicare Annual Wellness Visit Medicare Annual Wellness Visit (AWV) [facility] Start: 01-31-2024 End: 08-01-2024 25-hydroxyvitamin D3 [Mass/volume] in Serum or Plasma Vitamin D 25-Hydroxy,Total (for eval of Vitamin D levels) Lab Routine Iron deficiency anemia, unspecified iron deficiency anemia type Mixed hyperlipidemia Prediabetes Vitamin D deficiency Expected: 01/31/2024 (Approximate), Expires: 08/01/2024 [facility] Work Phone: Immunizations Immunization Date Immunization Notes Care Provider Fa cility 08-01-2023 Flu vaccine, quadrivalent, high-dose, preservative free, age 65y+ (FLUZONE) Reyna Jackson MANAGER OF TRANSPORTATION-OIL SEAL ASSEMBLER Work Phone: [facility] Work Phone: 08-01-2022 Fluzone High-Dose Quadrivalent 0.7 ML Intramuscular Suspension Prefilled Syringe; Translations: [Fluzone High-Dose Quadrivalent 0.7 ML Intramuscular Suspension Prefilled Syringe] Reyna Martel Work Phone: [facility] Work Phone: Payers Date Payer Category Payer Medicare [id number] 2016 Medicare [id number] 1950 Unknown [id number] 2.16.8 [id number] 1950 Unknown [id number] 2.16.8 [id number] 1950 Unknown [id number] 2.16.8 [id number] 1950 Unknown [id number] 2.16.8 [id number] 1950 Unknown [id number] 2.16. [id number] 1950 Unknown [id number] 2.16. [id number] 1950 Unknown [id number] 2.16. [id number] 1950 Unknown [id number] 2.16.8 [id number] 1950 Unknown [id number] 2.16.84 [id number] 1950 Unknown [id number] 2.16.8 [id number] 1950 Unknown [id number] 2.16.8 [id number] 1950 Unknown [id number] 2.16.84 [id number] 1950 Unknown [id number] 2.16. [id number] Unknown Social History Date Type Detail Facility Start: 12-02-2022 End: 08-01-2023 Does not use illicit drugs Does not use illicit drugs [facility] Work Phone: Tobacco smoking status [facility] Tobacco smoking consumption unknown [facility] Work Phone: Start: 1950 Sex Assigned At Not on file [facility] Phone: Start: 02-19-2022 End: 12-02-2022 Tobacco smoking status NHIS Never smoked tobacco [facility] Start: 02-19-2022 End: 12-02-2022 Tobacco use and exposure Smokeless tobacco non-user [facility] Phone: Start: 02-16-2022 End: 08-01-2023 Exposure to SARS-CoV-2 (event) Not sure [facility] Work Phone: Start: 12-02-2022 End: 12-02-2023 Alcohol intake Lifetime non-drinker (finding) [facility] Start: 08-01-2023 End: 11-05-2023 Alcohol intake Ex-drinker (finding) [facility] Work Phone: Start: 12-02-2022 End: 08-01-2023 Tobacco use panel [facility] Work Phone: Start: 10-26-2023 End: 11-05-2023 Exposure to SARS-CoV-2 (event) Unable to assess [facility] Work Phone: NEGATED: Highlighted rowStart: DEYAF History of tobacco use Passive smoker [facility] Clinical Notes 11-21-2021 to 12-02-2023 Poppy Keene MD - 12/02/2023 8:12 AM Carrie Waite MA - 12/02/2023 8:08 AM Christianne Reyes MD - 11/05/2023 12:30 PM Tae Jackson APRN-OIL SEAL ASSEMBLER - 08/01/2023 7:40 AM EDT Note Date & Type Note Facility 12-02-2023 History of Present illness Narrative [facility] [address] [facility] [address] [facility] [id number] Dept: [phone] MD Kay Kohler 73 y.o. female Patient presents with a chief complaint of Follow-up (1 yr follow up tongue cancer) Temp 97.3 F (36.3 C) (Temporal) Ht 4' 10 Wt 40.6 kg (89 lb 6.4 oz) BMI 18.68 kg/m History of Presenting Illness: The patient/caregiver reports a history of complaint with the following features: Onset: first treated 4 years ago Timing: ongoing Duration: 4 years no oral pain, no dry mouth [...] pertinent past medical history. Current Outpatient Medications: aspirin 81 MG EC tablet, Take 1 (one) tablet (81 mg total) by mouth Prior to discharge from the hospital ., Disp: , Rfl: calcium carbonate-vit D3-min 600 mg calcium- 400 unit Tab, Take 1 tablet by mouth 2 (two) times a day ., Disp: , Rfl: fluticasone propionate (FLONASE) 50 mcg/actuation nasal spray, Instill 1 (one) spray into each nostril ., Disp: , Rfl: levothyroxine (SYNTHROID, LEVOTHROID) 100 MCG tablet, Take 1 (one) tablet (100 mcg total) by mouth daily ., Disp: , Rfl: pediatric multivitamin chewable tablet, Chew and Swallow ., Disp: , Rfl: polysaccharide iron complex (Ferrex 150) 150 mg iron capsule, Take 1 (one) capsule (150 mg total) by mouth 2 (two) times a day ., Disp: , Rfl: psyllium (METAMUCIL) 3.4 gram packet, Take 2,020 Unspecified by mouth ., Disp: , Rfl: TURMERIC ORAL, Take 1 capsule by mouth daily ., Disp: , Rfl: zinc-vit C-pyridoxine, vit B6, 12-60-0.5 mg Lozg, Take 1 Unspecified by mouth daily ., Disp: , Rfl: ascorbic acid, vitamin C, (VITAMIN C) 1000 MG tablet, Take 1 (one) tablet (1,000 mg total) by mouth ., Disp: , Rfl: Allergies Allergen Reactions Gluten Protein Diarrhea, GI Intolerance and Other (See Comments) intolerance Milk Diarrhea Milk Containing Products (Dairy) Diarrhea Diazepam Nausea And Vomiting and Nausea and vomiting Penicillins Hives and Rash Past Surgical History: Procedure Laterality Date CT COLONOSCOPY 11/10/2022 CT COLONOSCOPY Social History Socioeconomic History Marital status: Tobacco Use Smoking status: Never Passive exposure: Never Smokeless tobacco: Never Substance and Sexual Activity Alcohol use: Never Drug use: Never History reviewed. No pertinent family history. PHYSICAL EXAM: The patient was examined today 12/02/2023 with findings as follows: CONSTITUTIONAL: General Appearance: [...] of submandibular glands, clear salivary flow from Lupton's ducts, no stones of Lupton's ducts Temporomandibular Joint: no crepitus with motion, [...] otoscopy, no perforation Hearing: intact to spoken voice NOSE: Nasal Skin: no lesions, no lacerations, [...] tonsils, symmetric, no lesions Posterior pharynx: normal NECK: Neck: no masses, trachea midline, normal [...] Mood and affect: normal mood, normal affect Assessment and Plan: She is doing well with no signs of recurrent malignancy. She continues coconut oil and I see no milagro growth on exam today which she has had problems with in the past. The patient is doing well on follow-up [...] plan. 1. History of carcinoma of tongue Return in about 1 year (around 12/02/2024). The patient and/or caregiver is to notify the office if no improvement or worsening of symptoms is noted prior to the scheduled follow-up for sooner evaluation. The patient and/or caregiver is able to state an understanding of these recommendations and is agreeable to the treatment plan. --Poppy Keene MD on 12/02/2023 at 8:31 AM An electronic signature was used to authenticate this note. Review of Systems Constitutional: Negative. HENT: Positive for mouth sores and rhinorrhea. Eyes: Negative. Respiratory: Negative. Cardiovascular: Negative. Gastrointestinal: Negative. Endocrine: Negative. Genitourinary: Negative. Musculoskeletal: Negative. Skin: Negative. Allergic/Immunologic: Negative. Neurological: Negative. Hematological: Bruises/bleeds easily. Psychiatric/Behavioral: Negative. documented in this encounter [facility] 11-05-2023 History of Present illness Narrative Subjective [...] 13-18 <7.5 7-12 <8.0 0- 6 7.5-8.5 [employer]. Diabetes Care 33(S1), Oct 2009. [...] worse Fu ER documented in this encounter [facility] Work Phone: 08-01-2023 History of Present illness Narrative Subjective Patient ID: Kay Rodriguez is a 73 y.o. female who presents for Follow-up (6 MONTH LAB RESULTS ). HPI: Presents today for 6 MONTH [facility] LABS. NO NEW COMPLAINTS LIPIDS- REFUSING [...] Parathyroid Hormone, Intact Protein-calorie malnutrition, unspecified severity (CMS/[facility]) Need for influenza vaccination Relevant Orders Flu [...] AND MEDICARE WELLNESS documented in this encounter [facility] Work Phone: 12-02-2022 History of Present illness Narrative [facility] [address] [facility] [address] [facility] [address] [facility] [id number] Dept: [phone] MD Kay Kohler 72 y.o. female Patient [...] flow from Alia's ducts, no stones of Lupton's ducts Temporomandibular Joint: no crepitus with motion, [...] normal mood, normal affect FIBEROPTIC NASOPHARYNOGLARYNGOSCOPY NOTE (06096) PROCEDURE PERFORMED BY: Poppy Keene MD PROCEDURE [...] and are negative. documented in this encounter [facility] 02-26-2022 History of Present illness Narrative Discharge [...] require patient to operate motor Vehicle. Yes [facility] Preadmission Testing Name: Kay Rodriguez : [...] Take [x] Ride Home [x]No Jewelry/Contact Lenses/Nail French [] Prep/Lax/Clear Liquids [] Chlorhexidene DOS Patient [...] with patient? Yes [facility] Work Phone: 11-23-2021 History of Present illness Narrative TELEPHONE APPOINTMENT BEING PERFORMED DUE TO COVID-19 (CORONAVIRUS)Presents today for F/U COVID TESTING. COVID NOT DETECTED ON 11/23/21. ALL SYMPTOMS HAVE RESOLVED.NO NEW COMPLAINTS [facility] Work Phone: 11-21-2021 History of Present illness Narrative TELEPHONE VISIT DUE TO COVID19.SINUS CONGESTION WITH HEADACHE 5/10 ON AND OFF X 7-10 DAYS WITH RHINITIS .REAR PAIN 3/10 ON ND OFF X 2-3 DAYS. HAD CLOSE COVID EXPOSURE 2 WEEKS AGO. PT IS FULLY VACCINATED AGAINST COVID , PENDING THE BOOSTER. HAS NO FEVER OR SOB. [facility] Work Phone: documented in this encounter [facility] Phone: evaluation note* Diagnosis Lesion of tongue Other specified conditions of the tongue documented in this encounter [employer] Phone: evaluation note* Diagnosis History of carcinoma of tongue- Primary Laryngeal edema Edema of larynx Primary cancer of oral cavity (HCC) [facility] Diagnosis Seasonal allergies- Primary Allergic rhinitis, cause unspecified Iron deficiency anemia, unspecified iron deficiency anemia type Protein-calorie malnutrition, unspecified severity (CMS/HCC) Mixed hyperlipidemia Prediabetes Other abnormal glucose Need for influenza vaccination Need for prophylactic vaccination and inoculation against influenza Vitamin D deficiency Hypothyroidism, unspecified type documented in this encounter [facility] Work Phone: Evaluation note* Diagnosis Upper respiratory tract infection, unspecified type- Primary documented in this encounter [facility] Work Phone: Evaluation note* Diagnosis History of carcinoma of tongue- Primary documented in this encounter [facility] Discharge instructions* Instructions* Poppy Keene MD [...] PROVIDED IN THIS DOCUMENT. documented in this encounter[facility] Phone: reason for visit Narrative* Auth/Cert Specialty Diagnoses / Procedures Referred By Contac t Referred To Contact Diagnoses Lesion of palate Lesion of tongue History of tongue cancer Lesion of palate and tongue, history of tongue cancer Procedures LA BIOPSY TONGUE,ANTER 2/3 MOUTH LESION BIOPSY EXCISION- lesion of tongue and palate Poppy Keene MD [address] [place] [address] [employer] [address] [place] [address] Referral ID Status Reason Start Date Expiration Date Visits Re quested Visits Authorized [facility] Phone: Family History No Family History Records FoundUnknown Family Member Name Dates Details Family history [...] Referral Specialty Diagnoses / Procedures Referred By Contfabio t Referred To Contact Cardiology Diagnoses Lesion of tongue Procedures EKG 12 lead Poppy Keene MD [address] [place] [address] Referral ID Status Reason Start Date Expiration Date Visits Re quested Visits Authorized Open 02/25/2022 02/25/2023 1 1 Advance Directives No Advanced Directives Records FoundLatest Code Status on File Code Status Date Activated Date Inactivated Comments Full Code 02/26/2022 8:53 AM Summary Purpose Additional Source Comments Care Teams (unrecognized sec tion and content) Marketing Forecaster Relationship Specialty Start Date End Date Reyna Martel APRN - OIL SEAL ASSEMBLER [address] [place] [address] PCP - General 02/18/22 Marketing Forecaster Relationship Specialty Start Date End Date Reyna Martel APRN - OIL SEAL ASSEMBLER [address] [place] [address] PCP - General 02/18/22 Marketing Forecaster Relationship Specialty Start Date End Date Annelise Reyes MD [address] [place], [place] [id number] PCP - General Internal Medicine 08/08/22 Marketing Forecaster Relationship Specialty Start Date End Date Reyna Jackson, MANAGER OF TRANSPORTATION-OIL SEAL ASSEMBLER [address] [facility] [place] [address] PCP - General 01/18/21 Reyna Jackson, MANAGER OF TRANSPORTATION-OIL SEAL ASSEMBLER [address] [facility] [place] [address] PCP - MMO Medicare Advantage PCP 12/25/22 Marketing Forecaster Relationship Specialty Start Date End Date Reyna Jackson, MANAGER OF TRANSPORTATION-OIL SEAL ASSEMBLER [address] [place] [address] PCP - General 01/18/21 Reyna Jackson, MANAGER OF TRANSPORTATION-OIL SEAL ASSEMBLER [address] [facility] [place] [address] PCP - MMO Medicare Advantage PCP 12/25/22 Marketing Forecaster Relationship Specialty Start Date End Date Annelise Reyes MD [address] [place] [address] PCP - General Internal Medicine 08/08/22 Scheduled Active and Recently Administ ered Medications (unrecognized section and content) Continuous Medication Order 02/24/2022 02/25/2022 02/26/2022 lactated ringers infusion (CANCELED) IntraVENous, at 50 mL/hr, CONTINUOUS, Starting on Fri02/26/22 at 0915, Pre-op (day of surgery) 0936 (New Bag - Prov ider: Jessi Farias RN)1028 (NoRateChange - Provider: Ben Noble APRN - DENTAL SERVICE CHIEF)1115 (Anesthesia Volume Adjustment - Provider: Ben Nobel APRN - DENTAL SERVICE CHIEF) lactated ringers infusion IntraVENous, at 125 mL/hr, [...] rate field of order., Post-op lidocaine-EPINEPHrine 1 %-1:[id number] injection (CANCELED) PRN, Starting on Fri02/26/22 at [...] DATE CREATED AUTHOR AUTHOR'S ORGANIZ ATION 08/01/2022 [employer] DATE CREATED AUTHOR AUTHOR'S ORGANIZ ATION 01/21/2023 [facility] DATE CREATED AUTHOR AUTHOR'S ORGANIZ ATION 07/28/2023 [facility] DATE CREATED AUTHOR AUTHOR'S ORGANIZ ATION 08/01/2023 [facility] DATE CREATED AUTHOR AUTHOR'S ORGANIZ ATION 11/09/2023 [facility] DATE CREATED AUTHOR AUTHOR'S ORGANIZ ATION 12/05/2023 [facility] Reason for Visit (unrecogniz ed section and content) Specialty Diagnoses / Procedures Referred By Rashaun solomon Referred To Contact Otolaryngology Diagnoses Primary cancer of oral cavity (HCC) Joss Kearney DO [address] [place] [id number] Poppy Keene MD [address] [place] [address] [address] [place] [address] Referral ID Status Reason Start Date Expiration Date V isits Requested Visits Authorized [id number] Pending Review 08/08/2022 08/08/2023 1 1 Reason Comments Follow-up 6 MONTH LAB RESULTS Reason Comments Follow-up PT CO COVID EXPOSURE AND CO HEADACHE SINUS PAIN SYMPTOMS STARTED FRIDAY A LOT COUGHING MILD FEVER Reason Comments Follow-up 1 yr follow up [facility] FOR RECORDS PERTAINING TO PATIENTS WHO ARE [...] BE BASED ON THE PRIMARY CLINICAL RECORDS. [facility]. provides no warranty or guarantee of the accuracy or completeness of information in this document.
== END | disposition home or self-care (01) ==
LOC: RAD 12:56
PROVIDERS: PCP Nurse Practitioner Family; Referring Provider Student in an Organized Health Care Education/Training Program; Visit Provider Student in an Organized Health Care Education/Training Program
DX: C06.9 Malignant neoplasm of mouth, unspecified (principal)
CPT/HCPCS: 74230; 92611

== ENCOUNTER → 2024-05-10 | Outpatient (CLI) | payer MEDICARE, SELFPAY ==
[2020-07-10 13:29] VITALS: BMI 21.4
--- NOTE | 2024-05-10 07:59 | CT_ITS ---
STUDY: CT CHEST WITH CONTRAST REASON FOR EXAM: Female, 74 years old. 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 Status post chemotherapy and radiation therapy. RADIATION DOSAGE (If Supplied By Facility): CTDIvol = ( 7.52 ) mGy, DLP = ( 367.82 ) mGycm TECHNIQUE: Transaxial imaging was performed following intravenous administration of IV 100mL Isovue-370. Individualized dose optimization techniques were used for this CT. COMPARISON: Comparison is made with prior study dated May 12, 2023. FINDINGS: CHEST A right-sided portacatheter is seen with the tip in the superior vena cava. Stable interstitial scarring at the lung apices more prominent in the anterior aspect of the right lung apex. Hyperinflation. Mild degree of emphysematous changes. No pulmonary mass lesion is seen. There is no demonstrated pleural abnormality. Normal heart and pericardium. No coronary artery calcification is seen. Normal mediastinum. Normal hilar regions. A tiny nonocclusive intraluminal filling defect is seen in the secondary order branch of the left lower lobe pulmonary suggestive of a tiny pulmonary embolus. Normal aorta arch and descending thoracic aorta. There is demineralization of the thoracic spine. Loss of height of the mid dorsal vertebrae. There has been no change. There is evidence of heterogeneous density. There is no demonstrated abnormality of the visualized upper abdomen. CT/Chest WITH Contrast IMPRESSION: Small nonocclusive filling defect in the secondary order branch of the left lower lobe pulmonary artery suggestive of a tiny pulmonary embolism. The remainder of examination is unchanged. Electronically Signed: Sylvester Diaz MD at 9:07 EDT ,
--- NOTE | 2024-05-10 07:59 | CT_ITS ---
STUDY: CT SOFT TISSUE NECK WITH CONTRAST REASON FOR EXAM: Female, 74 years old. 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 Prior chemotherapy and radiation. RADIATION DOSAGE (If Supplied By Facility): CTDIvol = ( 7.52 ) mGy, DLP = ( 367.82 ) mGycm TECHNIQUE: The patient was scanned in a multi-detector CT scanner. High resolution transaxial imaging was performed following intravenous administration of IV 100mL Isovue-370. Sagittal and coronal images were reconstructed. Individualized dose optimization techniques were used for this CT. COMPARISON: Comparison is made with prior study of May 12, 2023. FINDINGS: A right-sided portacatheter is seen with the tip in the superior vena cava. Once again, postsurgical changes are seen along the left side of the base of the tongue and the upper left neck. Postsurgical distortion of the hypopharynx and left parapharyngeal soft tissues. Normal visualized nasopharynx. Normal retropharyngeal space. Normal perivertebral space. Normal visualized bilateral faucial tonsils. The visualized tongue, tongue base and oropharynx are normal. The visualized cervical lymph nodes (levels I-) are within normal size limits, and maintain normal morphology. There is no demonstrated solid or cystic mass lesion. There is no abnormal contrast enhancement. Normal epiglottis, bilateral vallecula and hypopharynx. The pre-epiglottic and paraglottic adipose spaces are normal. Normal visualized bilateral piriform sinuses, aryepiglottic folds, vocal cords, and arytenoid-cricoid articulations. Normal subglottic trachea. Normal bilateral lobes of the thyroid gland. Stable scarring at the lung apices. Normal visualized paranasal sinuses. There is multilevel degenerative changes of the cervical spine. CT/Soft Tissue Neck WITH Contrast IMPRESSION: Stable postsurgical changes involving the left base of the tongue and left left upper neck with distortion of the hypopharynx and left parapharyngeal soft tissues. Electronically Signed: Sylvester Diaz MD at 14:23 EDT ,
[2024-05-10] MEDS: 0.9% Saline Lock 10 ML Syringe IV (08:05)
[2024-05-10 08:27] LABS: CREATININE FINGERSTICK < 1.0 mg/dL (0.55-1.02); EGFR FINGERSTICK > 60.0000 mL/min (>60)
== END | disposition home or self-care (01) ==
PROVIDERS: PCP Nurse Practitioner Family; Referring Provider Internal Medicine Medical Oncology; Visit Provider Internal Medicine Medical Oncology
DX: C06.9 Malignant neoplasm of mouth, unspecified (principal)
CPT/HCPCS: 70491; 71260; Q9967; A4216

== ENCOUNTER → 2024-05-19 | Outpatient (CLI) | payer MEDICARE, SELFPAY ==
[2020-07-10 13:29] VITALS: BMI 21.4
== END | disposition home or self-care (01) ==
LOC: LABSPEC 11:25
PROVIDERS: PCP Nurse Practitioner Family; Visit Provider Internal Medicine Medical Oncology
DX: D50.8 Other iron deficiency anemias (principal)
CPT/HCPCS: 82274

== ENCOUNTER → 2024-08-04 | Outpatient (CLI) | payer MEDICARE, SELFPAY ==
[2020-07-10 13:29] VITALS: BMI 21.4
[2024-08-04 12:05] LABS: Absolute Lymphocyte Count 1.07 X10^3/uL (0.83-4.51); Absolute Neutrophil Count 4.5 X10^3/uL (2.0-7.7); Basophil# 0.03 X10^3/uL; Basophil% 0.5 % (0-1); Eosinophils% 1.6 % (0-5); Hematocrit 37.1 % (37-47); Hemoglobin 12.3 g/dL (12.0-15.0); Lymphocyte # 1.07 X10^3/ul (0.83-4.51); Lymphocyte % 17.4 % (19-41); Mean Corp Hgb Conc 33.2 g/dL (32-36); Mean Corpuscular Hgb 30.8 pg (27.0-32.0); Mean Platelet Vol. 8.8 fl (6.2-12.0); Monocyte# 0.46 X10^3/uL; Monocyte% 7.5 % (0-10); NRBC Flagged by Analyzer 0 % (0-5); Neutrophil # 4.46 X10^3/uL (2.7-7.7); Neutrophil % 72.7 % (47-70); Platelet Count 289 K/mm3 (150-450); RBC Distribution Width CV 11.6 % (11.6-14.6); RBC Distribution Width SD 39.2 fl (35.1-43.9); Red Blood Count 3.99 M/mm3 (4.2-5.4); White Blood Count 6.1 K/mm3 (4.4-11.0)
[2024-08-04 12:54] LABS: Iron 65 ug/dL (50-170); Iron Binding Capacity,Total 327 ug/dL (250-450)
== END | disposition home or self-care (01) ==
LOC: LAB 11:44
PROVIDERS: PCP Nurse Practitioner Family; Referring Provider Student in an Organized Health Care Education/Training Program; Visit Provider Student in an Organized Health Care Education/Training Program
DX: D64.9 Anemia, unspecified (principal)
CPT/HCPCS: 36415; 83540; 83550; 85025

== ENCOUNTER 2024-09-07 12:21 | Day surgery (SDC) | payer MEDICARE, SELFPAY ==
[2020-07-10 13:29] VITALS: BMI 21.4
[2024-09-07] VITALS (9 sets, daily range): BP systolic 89–119; BP diastolic 48–62; PULSE 71–77; RESP 14–16; TEMP 36.2–36.4; O2SAT 97–98; BMI 20.8
--- NOTE | 2024-09-07 13:20 | PRE.ANES_ITS ---
ASA Classification* ASA Classification ASA Classification: 3 Assessment & Plan Anesthesia* Anesthesia Assessment Anesthesia Assessment: Discussed sedation and/or anesthesia options, risks, benefits, and alternatives with patient/parents/legal guardian/POA. Questions invited. The patient/parents/legal guardian/POA seems to understand and agrees to proceed with anesthesia plan. Reviewed the physical assessment, medical history, allergy history and patient home medications list prior to surgery/procedure/anesthetic and documented any changes. Performed airway and anesthesia risk assessments. Anesthesia Type Anesthesia Type: MAC History Source History Obtained from:: Patient and Chart Anesthesia Focused Assessment* Temperature: 97.5 F Pulse Rate: 75 Blood Pressure: 119/62 Respiratory Rate: 16 Pulse Ox: 98 Oxygen Delivery Method: Room Air Airway Assessment Mouth opens: 2 cm Mallampati Score: IV Teeth Condition: Missing (Few missing.) Neck Range of motion (ROM): Limited ROM Focused Labs Anesthesia Preop lab: CBC WBC 6.1 K/mm3 (4.4-11.0) 08/04/24 11:50 RBC 3.99 M/mm3 (4.2-5.4) L 08/04/24 11:50 Hgb 12.3 g/dL (12.0-15.0) 08/04/24 11:50 Hct 37.1 % (37-47) 08/04/24 11:50 Plt Count 289 K/mm3 (150-450) 08/04/24 11:50 CHEMISTRY Potassium 4.1 mmol/L (3.5-5.1) 05/17/24 09:25 Sodium 139 mmol/L (136-145) 05/17/24 09:25 Magnesium 2.2 mg/dL (1.6-2.6) 09/25/20 08:00 Phosphorus 3.5 mg/dL (2.5-4.9) 09/25/20 08:00 BUN 23 mg/dL (7-18) H 05/17/24 09:25 Creatinine 0.80 mg/dL (0.55-1.02) 05/17/24 09:25 Glucose 114 mg/dL (74-106) H 05/17/24 09:25 TSH 0.20 uIU/mL (0.358-3.74) L 06/02/24 08:35 COAG Pre-Assessment Diagnosis/Proposed Procedure Planned Operative Procedure(s): COLONOSCOPY, EGD Anesthesia History Anesthesia History - 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 When Was Last Pacemaker Check QUESTION #4 FULL TEXT: You/Your Family Experience fever (hyperthermia) with Anesthesia Last Oral Intake Last Oral intake: Last Oral Intake NPO since 10:00 09/07/24 12:44 Meds taken in AM with sips of water? Meds patient instructed to take am of surgery Any additional information?: Yes NPO since: 10:00 (Patient had Gatorade and J ell-O at 10 AM.) PONV PONV - student services director: PONV - student services director Female Yes 09/06/24 08:13 HX of Motion Sickness No 09/06/24 08:13 HX of N/V After Surgery No 09/06/24 08:13 Non-Smoker Yes 09/06/24 08:13 Duration of Surgery greater No 09/06/24 08:13 than 60 minutes Number of Risk Factors 2 09/06/24 08:13 PONV Score Moderate Risk 09/06/24 08:13 Height & Weight Height & Weight: Anesthesia: Height & Weight Height 4 ft 10 in 09/07/24 12:44 Weight: 45.178 kg 09/07/24 12:44 Body Mass Index (BMI) 20.8 09/07/24 12:44 Respiratory Assessment Respiratory Assessment - student services director: Respiratory Tract Infection Hx - student services director Hx Respiratory Tract Infection No 09/06/24 08:13 STOP Sleep Apnea STOP Sleep Apnea - student services director: STOP Sleep Apnea - student services director Hx Hypertension No 09/06/24 08:13 Hx Sleep Apnea No 09/06/24 08:13 CPAP BIPAP Do you snore loudly (louder No 09/06/24 08:13 than talking or can be heard Do you often feel tired/ No 09/06/24 08:13 fatigued/ sleepy during daytime? Has anyone observed you stop No 09/06/24 08:13 breathing during sleep? STOP Results Negative 09/06/24 08:13 QUESTION #5 FULL TEXT : Do you snore loudly (louder than talking or can be heard through closed doors)? 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 Specify any problems Hx of Preganancy in last 3 No 09/06/24 08:13 Months Nurse Filling Out Transfusion [email or web address] 09/06/24 08:13 & Questions: Date: 09/06/24 09/06/24 08:13 Time: 08:16 09/06/24 08:13 Patient unable to answer at this time (ie. confused, unrespo /Reproduction History /Reproductive History - student services director: /Reproductive Hx- student services director Hx Now Gestational Age (in weeks): EDC: Hx Hx Para Hx Section SAB PFSH Medical History Wears glasses High cholesterol Difficulty swallowing Non-smoker Arthritis Hypothyroid PEG (percutaneous endoscopic gastrostomy) adjustment/replacement/removal (~10/2020) Gluten intolerance Carpal tunnel syndrome on right Tongue cancer Home Medications ?Medication ?Instructions ?Recorded ?Last Taken ?Type aspirin 81 mg chewable tablet 81 mg PO DAILY@0800 07/10/20 09/03/24 History psyllium husk (aspartame) 3.4 gram 1 packet PO DAILY 07/10/20 Unknown History oral powder packet multivitamin with minerals 1 ea PO DAILY 07/19/20 Unknown History calcium 600 mg (as 1 cap PO DAILY 06/28/21 Unknown History carbonate)-vitamin D3 12.5 mcg (500 unit) capsule (Calcium with Vit D3) polysaccharide iron complex 150 mg See Rx Instructions .Route 10/24/21 09/03/24 Rx iron capsule (Ferrex) .COMPLEX #90 caps fluticasone propionate 50 1 spray intranasal DAILY 11/25/22 Unknown History mcg/actuation nasal spray,suspension (Allergy Relief (fluticasone)) levothyroxine 100 mcg capsule 100 mcg PO DAILY 05/19/23 Unknown History turmeric 100 mg-fidel 150 1 cap PO DAILY 08/28/23 Unknown History mg-olive 50 mg-oreg 150 mg-capryl capsule atorvastatin 10 mg tablet 10 mg PO DAILY 05/17/24 Unknown History clopidogrel 75 mg tablet (Plavix) 75 mg PO DAILY 09/06/24 09/03/24 History Allergy/AdvReac Type Severity Reaction Status Date / Time Penicillins (PCN) Allergy Rash Verified 09/07/24 12:44 diazepam (From Valium) AdvReac Vomiting Verified 09/07/24 12:44 gluten AdvReac Diarrhea Verified 09/07/24 12:44 milk AdvReac Diarrhea Verified 09/07/24 12:44 Family History Mother Heart disease Colon cancer Sister Gallbladder cancer, carcinoma Father Diabetes Surgical History History of esophagogastroduodenoscopy (EGD) (~06/2020) History of percutaneous endoscopic gastrostomy (~06/2020) H/O tubal ligation Social History Smoking Status: Never smoker Review of Systems (Anesthesia) ROS Narrative System reviewed and no additional complaints, except as documented.
--- NOTE | 2024-09-07 13:30 | COLBX_PTH ---
PATIENT: SHERLYN RODRIGUEZ LOC: EN U#:[id number] AGE/SX: 74/F ROOM: RE09/07/[address]: Dr. Chandler Draper DO : 1950 BED: DIS: 09/07/2024 SPEC #: [id number] RECD: 09/07/24 17:14 STATUS: MAKAYLA MIKEL #: [id number] CARLOS: 09/07/24 13:[address]: Chandler Draper DEPT: SURGICAL PATHOLOGY RECD BY: Abdullahi Camacho ENTERED: 09/08/24 07:46 SP TYPE: COLON BX OTHR DR: Reyna French, MOTORCYCLE REPAIRER-C Tissues: Duodenum, NOS Procedures: Surgery Specimen Level IV HEADER OPERATION: Colonoscopy, EGD with biopsy PRE-OP DIAGNOSIS: Anemia TISSUE SUBMITTED: Duodenum biopsy MICROSCOPIC DIAGNOSIS Duodenum, biopsy: No pathologic change. AM. 09/09/2024 MICROSCOPIC DESCRIPTION Slides are reviewed. GROSS DESCRIPTION Received in fixative is one container labeled with the patient's name and designated Duodenum biopsy. The specimen consists of multiple irregular fragments of light maya soft tissue that in aggregate measure 1.0 x 0.3 x 0.1 cm. The specimen is totally submitted in one cassette. 09/08/2024 TC:5 CPT:86452
--- NOTE | 2024-09-07 13:49 | HP.PCM_ITS ---
History and Physical Date of Admission: 09/07/24 Chief Complaint: anemia Details: SHERLYN RODRIGUEZ, is a 74 F who presents to the office today for establishment with [facility]. Pt has a PMHx of arthritis, cancer of the oral cavity, hypothyroidism, PE, and anemia. She is here today after referral from Dr. Jordan for chronic anemia. She is s/p radiation, chemo and resection of oral cancer. She is in remission and not undergoing any treatments at this time. She has noticed dark stools but has taken iron for a long time. In April 2024 she had a positive fecal occult blood test. Her last colonoscopy was in 2020 at a facility in [place] which had a few polyps she tells me. She has also had an EGD in the past. She has occasional abdominal cramping with bowel movements and occasional heartburn with position changes like bending over. She had lost weight during her cancer diagnosis and treatment but is now gaining some back. She eats mostly soft foods that are easy to swallow and chew. She denies, constipation, n/v or diarrhea. EGD 07.26.20; - An externally removable PEG placement was successfully completed. - No specimens collected. ROS Const Constitutional: Positive for fatigue Eyes Eyes: No change in vision ENT ENT: No abnormal hearing, difficulty swallowing, mouth lesions, tongue swelling or throat swelling Resp Respiratory: No cough or shortness of breath Cardio Cardiology: No chest pain at rest, chest pain with exertion, shortness of breath or dyspnea on exertion Gastro GI: Positive for abdominal pain, bloating, constipation, heartburn and Blood in stool; No difficulty swallowing Genitourinary-Female: No difficulty urinating or burning urination Musc Musculoskeletal: Positive for joint pain, stiffness and Arthritis Skin Skin: No hair loss in leg, yellowing of the eye, itchy eyes, rash, skin ulcer or skin swelling Neuro Neurology: No abnormal hearing, abnormal movements, confusion, unsteady gait/balance or memory loss Psych Psychiatric: Positive for anxiety, No confusion, No memory loss and Positive for hyperactivity Endo Endocrine: Positive for fatigue Aller/Imm Allergy/Immunologic: No itchy eyes, throat swelling or tongue swelling Chase/Lymp Hematologic/Lymphatic: Positive for easy bruising Exam Const General: cooperative and comfortable Nutritional Appearance: average body habitus and well nourished HENMT Head: normal to inspection Ears: hearing grossly normal bilaterally Nose: external nose normal Face and sinus: normal facial exam Mouth: oral mucosae normal, tongue normal (s/p resection for cancer of the tongue) and moist mucous membranes Teeth and gingiva: dentition normal Eyes General: appearance normal, both eyes and all related structures Neck Neck: normal visual inspection Chest Chest palpation & inspection: normal inspection of the chest Resp Effort & Inspection: normal respiratory effort and able to speak in complete sentences Cardio Palpation: normal PMI GI Inspection: normal to inspection Palpation: no hepatosplenomegaly Skin General: no rashes or lesions noted Neuro General: patient alert Extrem General: normal to inspection Psych Affect: normal affect Assessment and Plan Assessment and Plan (1) Anemia: Status: Acute Qualifiers: Anemia type: unspecified type Qualified Code(s): D64.9 - Anemia, unspecified Plan: Pt is a 74 yo female wit PMHx of cancer of the oral cavity, PE, anemia, and arthritis here today for evaluation. She has been chronically anemic since her cancer treatments. She is no longer undergoing treatments so there is no clear etiology for anemia so Dr. Jordan referred her here for possible endoscopy. She has been on iron supplementation for years and has dark stools from this. Her last colonoscopy was in 2020 with polyps and last EGD in 2019. She will be scheduled for colonoscopy and EGD with Dr. Draper. I will order CBC and iron studies to monitor. She is agreeable and has no questions. -Colonospcy and EGD -CBC and iron studies -f/u Orders: Orders CBC W/Diff, Automated Today D64.9 - Anemia, unspecified Iron Today D64.9 - Anemia, unspecified Iron Binding Capacity,Total Today D64.9 - Anemia, unspecified I have examined the patient and the H&P has been reviewed. There are no clinical changes since date of exam.
--- NOTE | 2024-09-07 14:31 | PCM.POST.ANE ---
Anesthesia: Postop Eval I Current Vital Signs Temperature: 97.2 F Pulse Rate: 77 Blood Pressure: 89/48 Respiratory Rate: 16 Pulse Ox: 98 Oxygen Delivery Method: Room Air Assessment Airway patent: Yes Spontaneous unlabored respirations: Yes Mental status: Asleep nausea: No Vomiting: No Anesthesia Complication: No Fluid Hydration Crystalloid volume administer (ml): 60 Total IV fluid infused: 60 Progress Note Anesthesia document: Postop Eval 1 completed: Yes
--- NOTE | 2024-09-07 14:37 | OP.CCLET_ITS ---
09/07/2024 Reyna French, [facility] Re : Upper GI endoscopy procedure for Kay Herring Dear Manolo This procedure was performed on Saturday, September 07, 2024. My impressions and recommendations are as follows: Impressions : - Normal esophagus. - Normal stomach. - Closed previous gastrostomy present. - Erythematous duodenopathy. Biopsied. Recommendations : - Discharge patient to home. - Resume previous diet. - Continue present medications. - Await pathology results. My findings are described in the full procedure note, which is enclosed. If I can be of further assistance, please feel free to contact me at . Sincerely, Chandler Draper, 09/07/2024 2:36:24 PM This report has been signed electronically.
--- NOTE | 2024-09-07 14:37 | OP.EGD_ITS ---
Patient Name: Kay Herring Procedure Date: 09/07/2024 1:46 PM Date of : 1950 Age: 74 Procedure: Upper GI endoscopy Indications: Iron deficiency anemia, Functional Dyspepsia Providers: Chandler Draper DO Referring MD: Chandler Draper DO Medicines: Monitored Anesthesia Care Patient Profile: This is a 74 year old female. Refer to note in patient chart for documentation of history and physical. Patient has symptoms of chronic dyspepsia. Complications: No immediate complications. Procedure: Pre-Anesthesia Assessment: - Prior to the procedure, a History and Physical was performed, and patient medications and allergies were reviewed. The patient is competent. The risks and benefits of the procedure and the sedation options and risks were discussed with the patient. All questions were answered and informed consent was obtained. Patient identification and proposed procedure were verified by the physician in the pre-procedure area. Mental Status Examination: alert and oriented. Airway Examination: normal oropharyngeal airway and neck mobility. Respiratory Examination: clear to auscultation. CV Examination: normal. Prophylactic Antibiotics: The patient does not require prophylactic antibiotics. Prior Anticoagulants: The patient has taken no anticoagulant or antiplatelet agents. ASA Grade Assessment: III - A patient with severe systemic disease. After reviewing the risks and benefits, the patient was deemed in satisfactory condition to undergo the procedure. The anesthesia plan was to use monitored anesthesia care (MAC). Immediately prior to administration of medications, the patient was re-assessed for adequacy to receive sedatives. The heart rate, respiratory rate, oxygen saturations, blood pressure, adequacy of pulmonary ventilation, and response to care were monitored throughout the procedure. The physical status of the patient was re-assessed after the procedure. After obtaining informed consent, the endoscope was passed under direct vision. Throughout the procedure, the patient's blood pressure, pulse, and oxygen saturations were monitored continuously. The pediatric colonoscope was introduced through the mouth, and advanced to the second part of duodenum. The upper GI endoscopy was accomplished without difficulty. The patient tolerated the procedure well. Scope In: 2:06:07 PM Scope Out: 2:09:16 PM Total Procedure Duration Time 0 hours 3 minutes 9 seconds Findings: The examined esophagus was normal. The entire examined stomach was normal. There was evidence of a closed previous gastrostomy present in the gastric body. Patchy mildly erythematous mucosa without active bleeding and with no stigmata of bleeding was found in the duodenal bulb. Biopsies were taken with a cold forceps for histology. Verification of patient identification for the specimen was done. Estimated blood loss was minimal. Impression: - Normal esophagus. - Normal stomach. - Closed previous gastrostomy present. - Erythematous duodenopathy. Biopsied. Recommendation: - Discharge patient to home. - Resume previous diet. - Continue present medications. - Await pathology results. Procedure Code(s): --- Professional --- 68839, Esophagogastroduodenoscopy, flexible, transoral; with biopsy, single or multiple CPT copyright 2021 [employer]. All rights reserved. The codes documented in this report are preliminary and upon drywall foreman review may be revised to meet current compliance requirements. Chandler Draper DO 09/07/2024 2:36:24 PM This report has been signed electronically. Number of Addenda: 0 Note Initiated On: 09/07/2024 1:46 PM
--- NOTE | 2024-09-07 14:38 | OP.COLON_ITS ---
Patient Name: Kay Herring Procedure Date: 09/07/2024 2:09 PM Date of : 1950 Age: 74 Procedure: Colonoscopy Indications: Iron deficiency anemia Providers: Chandler Draper DO Referring MD: Chandler Draper DO Medicines: Monitored Anesthesia Care Patient Profile: This is a 74 year old female. Refer to note in patient chart for documentation of history and physical. Patient has symptoms of chronic dyspepsia. Last Colonoscopy: date unknown. Unable to locate last colonoscopy report. Complications: No immediate complications. Procedure: Pre-Anesthesia Assessment: - Prior to the procedure, a History and Physical was performed, and patient medications and allergies were reviewed. The patient is competent. The risks and benefits of the procedure and the sedation options and risks were discussed with the patient. All questions were answered and informed consent was obtained. Patient identification and proposed procedure were verified by the physician in the pre-procedure area. Mental Status Examination: alert and oriented. Airway Examination: normal oropharyngeal airway and neck mobility. Respiratory Examination: clear to auscultation. CV Examination: normal. Prophylactic Antibiotics: The patient does not require prophylactic antibiotics. Prior Anticoagulants: The patient has taken no anticoagulant or antiplatelet agents. ASA Grade Assessment: III - A patient with severe systemic disease. After reviewing the risks and benefits, the patient was deemed in satisfactory condition to undergo the procedure. The anesthesia plan was to use monitored anesthesia care (MAC). Immediately prior to administration of medications, the patient was re-assessed for adequacy to receive sedatives. The heart rate, respiratory rate, oxygen saturations, blood pressure, adequacy of pulmonary ventilation, and response to care were monitored throughout the procedure. The physical status of the patient was re-assessed after the procedure. After I obtained informed consent, the scope was passed under direct vision. Throughout the procedure, the patient's blood pressure, pulse, and oxygen saturations were monitored continuously. The pediatric colonoscope was introduced through the anus and advanced to the terminal ileum. The colonoscopy was performed without difficulty. The patient tolerated the procedure well. The quality of the bowel preparation was adequate. The terminal ileum, ileocecal valve, appendiceal orifice, and rectum were photographed. Scope In: 2:11:12 PM Scope Withdrawal Time 0 hours 7 minutes 55 seconds Scope Out: 2:22:45 PM Total Procedure Duration Time 0 hours 11 minutes 33 seconds Findings: The perianal and digital rectal examinations were normal. The colon (entire examined portion) appeared normal. No additional abnormalities were found on retroflexion. Impression: - The entire examined colon is normal. - No specimens collected. Recommendation: - Discharge patient to home. - Resume regular diet. - Continue present medications. - Repeat colonoscopy in 10 years for screening purposes. Procedure Code(s): --- Professional --- 60620, Colonoscopy, flexible; diagnostic, including collection of specimen(s) by brushing or washing, when performed (separate procedure) CPT copyright 2021 [employer]. All rights reserved. The codes documented in this report are preliminary and upon french folding machine operator review may be revised to meet current compliance requirements. Chandler Draper DO 09/07/2024 2:38:38 PM This report has been signed electronically. Number of Addenda: 0 Note Initiated On: 09/07/2024 2:09 PM
--- NOTE | 2024-09-07 14:39 | OP.CCLET_ITS ---
09/07/2024 Reyna French, Gregg-c Re : Colonoscopy procedure for Kay Herring Dear Manolo This procedure was performed on Saturday, September 07, 2024. My impressions and recommendations are as follows: Impressions : - The entire examined colon is normal. - No specimens collected. Recommendations : - Discharge patient to home. - Resume regular diet. - Continue present medications. - Repeat colonoscopy in 10 years for screening purposes. My findings are described in the full procedure note, which is enclosed. If I can be of further assistance, please feel free to contact me at . Sincerely, Chandler Draper, 09/07/2024 2:38:38 PM This report has been signed electronically.
--- NOTE | 2024-09-07 16:28 | PCM.POSTANE2 ---
Anesthesia Postop Eval I Sum Postop Eval Completion status Anesthesia document: Postop Eval 1 completed: Yes Anesthesia Postop Eval I Summary Anesthesia Postop Eval I Summary: Anesthesia Postop Eval I: Assessment Summary Airway patent Yes 09/07/24 14:32 [email or web address] Spontaneous unlabored Yes 09/07/24 14:32 [email or web address] respirations Mental status Asleep 09/07/24 14:32 [email or web address] nausea No 09/07/24 14:32 [email or web address] Vomiting No 09/07/24 14:32 [email or web address] Anesthesia Postop Eval I: Fluid Summary Crystalloid volume administer 60 09/07/24 14:32 [email or web address] (ml) Colloids volume administered ( ml) Blood Product volume administered (ml) Total IV fluid infused 60 09/07/24 14:32 [email or web address] Anesthesia Postop Eval I: Summary Notes Anesthesia Complication No 09/07/24 14:32 [email or web address] Anesthesia Complication Comment: Post-operative progress note Anesthesia: Postop Eval II Evaluation Mental status: Awake and Calm Pain Level: 0 nausea: No Vomiting: No
== END 2024-09-07 15:25 | disposition home or self-care (01) ==
PROVIDERS: PCP Nurse Practitioner Family; Referring Provider Nurse Practitioner Family; Visit Provider Internal Medicine Gastroenterology
PROC: 0DJD8ZZ Inspection of Lower Intestinal Tract, Via Natural or Artificial Opening Endoscopic (ICD-10-PCS; CPT 45378; principal; 2024-09-07 13:25)
DX: D50.9 Iron deficiency anemia, unspecified (principal); E03.9 Hypothyroidism, unspecified; K31.89 Other diseases of stomach and duodenum; Z79.82 Long term (current) use of aspirin; Z79.899 Other long term (current) drug therapy; Z92.21 Personal history of antineoplastic chemotherapy; Z92.3 Personal history of irradiation
CPT/HCPCS: 43239; 45378; 88305; A4216; J2405

== ENCOUNTER → 2025-01-03 | Outpatient (CLI) | payer MEDICARE, SELFPAY ==
[2020-07-10 13:29] VITALS: BMI 21.4
--- NOTE | 2025-01-03 13:37 | ST.MBS ---
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 From 07/24/2020 - 09/06/2020 she received adjuvant chemoradiation. She received speech therapy services intermittently during and following radiation treatment. She is currently recommended for home oropharyngeal exercise program and yearly MBSS to monitor risk for worsening dysphagia s/p radiation. The patient has participated in 4 previous MBSS (11/01/2020, 05/03/2021, 12/10/2022, 12/24/2023). Most recent MBSS on 12/24/2023 revealed mild-moderate oropharyngeal dysphagia with recommendations for minced and moist textures / thin liquids with use of aspiration precautions and Modified Hsu Free Water Protocol to encourage improved hydration (ER visit for dehydration in October 2022) (ok single sips during meals, ok to drink freely/sequentially 30min after meal has been completed and after oral care if pt is consuming water by itself). Currently, she reports consuming soft solids mostly (some regular textured foods, such as occ pizza) and thin liquids with a slow rate and puree wash w/ solid foods. No concerns for reflux, regurgitation, or sensation of retention. She denies xerostomia, but reports feeling that her mouth can be sore and sensitive intermittently, OTM CONSULTANT viewed some redness in oral cavity today. Current Diet Ordered: Soft solids, some regular textures / Thin liquids Dentition: Natural Teeth Mental Status: WNL Respiratory Status: Oxygenating on Room Air Penetration-Aspiration Scale Penetration-Aspiration Scale: OBJECTIVE ASSESSMENT OF SWALLOW FUNCTION (QUANTITATIVE ? PER TRIAL): PENETRATION / ASPIRATION SCALE (RANKIN): 1 = does not enter airway 2 = enters airway/above vocal folds/ejected 3 = enters airway/above vocal folds/not ejected 4 = enters airway/contacts vocal folds/ejected 5 = enters airway/contacts vocal folds/not ejected 6 = enters airway/below vocal folds/ejected 7 = enters airway/below vocal folds/not ejected despite effort 8 = enters airway/below vocal folds/no effort VIDEOFLOROSCOPIC SCALE SCORE (RANKIN): Grade I = aspiration of material that has penetrated into the laryngeal vestibule, intact cough reflex Grade II = aspiration < 10 % of the bolus, intact cough reflex Grade III = aspiration of < 10 % of the bolus, reduced cough reflex or aspiration of > 10 % of the bolus, intact cough reflex Grade IV = aspiration of > 10 % of the bolus, reduced cough reflex Penetration-Aspiration Scale Score Thin Liquid via teaspoon: Result: 2= enter airway/above vocal folds/ejected Thin Liquid via teaspoon Trial 2: Result: 2= enter airway/above vocal folds/ejected Thin Liquid via large single sip: cup: Result: 7= enters airways/below vocal folds/not ejected despite effort [place] Thick Liquid via large single sip: cup: Result: 2= enter airway/above vocal folds/ejected Pudding via teaspoon: Result: 1= does not enter airway Comment: Esophageal screen - Complete clearance. Mandarin [place] coated in barium pudding: Result: 1= does not enter airway Comment: Esophageal screen - Complete clearance of mandarin orange, but esophageal retention of barium pudding coating. Thin Liquid via single sip: straw: Result: 2= enter airway/above vocal folds/ejected Thin Liquid via large single sip: cup Effortful swallow: Result: 7= enters airways/below vocal folds/not ejected despite effort Thin Liquid via large single sip: cup Chin tuck: Result: 2= enter airway/above vocal folds/ejected Thin Liquid via large single sip: cup Chin tuck Trial 2: Result: 2= enter airway/above vocal folds/ejected Oral Phase Labial Seal: Interlabial escape, no progression to anterior lip Tongue Control During Bolus Hold: Posterior escape of greater than half of bolus Bolus Preparation/Mastication: Minimal chewing/mashing with majority of bolus unchewed Bolus Transport/Lingual Motion: Repetitive/disorganized tongue motion Oral Residue: Residue collection on oral structures Pharyngeal Phase Initiation of Pharyngeal Swallow: Bolus head in pyriforms Soft Palate Elevation: No bolus between soft palate and pharyngeal wall Laryngeal Elevation: Partial superior movement thyroid cart/partial apprx aryt-epig petiole Anterior Hyoid Excursion: Partial anterior movement Epiglottic Movement: Complete inversion Laryngeal Vestibule Closure at Height of Swallow: Incomplete; narrow column of air/contrast in laryngeal vestibule Pharyngeal Stripping Wave: Present - diminished Pharyngoesophageal Segment Opening: Complete distension and complete duration; no obstruction of flow Tongue Base Retraction: Narrow column of contrast between tongue base & post. pharyngeal wall Pharyngeal Residue: Collection of residue within or on pharyngeal structures Esophageal Phase Esophageal Clearance: Esophageal retention Diagnosis/Impression Diagnosis: Moderate-severe oropharyngeal dysphagia R13.12 Impression: The oral phase is primarily marked by... -Decreased bolus control w/ posterior loss of >1/2 of liquids prior to swallow onset. -Delayed, repetitive, and decreased tongue motion for A-P transport. -Severe mastication deficits w/ minimal chewing of mandarin orange, which pt appeared to swallow mostly whole placing pt at risk for choking. The pharyngeal phase is primarily marked by... -Decreased pharyngeal motility w/ decreased TB retraction and pharyngeal stripping wave. -Decreased airway closure during the swallow due to decreased laryngeal elevation and anterior hyoid excursion. -Aspiration of thin liquids via cup 2X w/ delayed, reflexive cough. Chin tuck was most effective in reducing risk for aspiration. The esophageal phase is primarily marked by... -Retention of pudding coating of mandarin orange in upper esophagus. Recommendations Diet: Minced and Moist Textures and Thin Liquids Compensatory Strategies: Small Bites, Small Sips, Slow Rate, Chin Tuck (All liquids), Multiple Swallows, Alternate bites/solids and sips/liquids, Sitting upright and Remain sitting upright for 30 minutes after PO intake Recommend Repeat Modified Barium Swallow: Yes Comment: Repeat MBS study in 6-12 months to monitor swallow function as the patient is at risk for worsening dysphagia and aspiration risk s/p radiation treatment. Need for Skilled Speech Therapy Services: Yes Comment: OTM CONSULTANT is recommending return to OP ST to address moderate-severe oropharyngeal dysphagia. POC to include the following: -Train the patient in use of strategies to decrease risk for aspiration and choking. -Ongoing assessment of diet tolerance of recommended textures. -Train the patient in oral motor and oropharyngeal exercise program to improve lingual ROM, bolus control, airway closure, and pharyngeal motility (lingual ROM, lingual resistance, Claire, effortful, Dior). Education Completed: 1. Described result of evaluation., 2. Pt understands evaluation & agrees with goals and treatment plan. and 7. Pt requires further education on strategies & risks. (OTM CONSULTANT educated pt in risk for choking/ w/ solids foods that she is unable to fully chew. Pt verbalized understanding.) Comment: If worsening s/s of reflux or sensation of retrograde flow of food/drink, consider GI consult. Status Active ST Patient: Active Contact Information [facility] Speech Therapy:: Sophia Alvarado M.A. [facility]-OTM CONS[facility] Speech-Language Pathologist [facility] [address] [place] [address] [email or web address] [phone]
== END | disposition home or self-care (01) ==
PROVIDERS: PCP Nurse Practitioner Family; Referring Provider Student in an Organized Health Care Education/Training Program; Visit Provider Student in an Organized Health Care Education/Training Program
DX: C06.9 Malignant neoplasm of mouth, unspecified (principal)
CPT/HCPCS: 74230; 92611

== ENCOUNTER 2025-05-11 09:30 | Outpatient (RCR) | payer MEDICARE, SELFPAY ==
[2020-07-10 13:29] VITALS: BMI 21.4
--- NOTE | 2025-01-27 08:30 | HP.SP.EV_ITS ---
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 From 07/24/2020 - 09/06/2020 she received adjuvant chemoradiation. She received speech therapy services intermittently during and following radiation treatment. She is currently recommended for home oropharyngeal exercise program and yearly MBSS to monitor risk for worsening dysphagia s/p radiation. The patient has participated in 5 previous MBSS (11/01/2020, 05/03/2021, 12/10/2022, 12/24/2023, 01/03/2025). Most recent MBSS on 12/24/2023 revealed moderate-severe oropharyngeal dysphagia with recommendations for minced and moist textures / thin liquids with use of aspiration precautions including Small Bites, Small Sips, Slow Rate, Chin Tuck (All liquids), Multiple Swallows, Alternate bites/solids and sips/liquids, Sitting upright and Remain sitting upright for 30 minutes after PO intake. Currently, she reports consuming soft solids mostly (some regular textured foods, such as occ pizza) and thin liquids with a slow rate and puree wash w/ solid foods. PLATE WORKER HELPER recommended return to OP ST after recent MBSS due to worsening swallow function as compared to previous MBSS. She has been trying to implement chin tuck w/ liquids since recent MBSS. No concerns for reflux, regurgitation, or sensation of retention. She denies xerostomia, but reports feeling that her mouth can be sore and sensitive intermittently (since treatment years ago). GLUTEN ALLERGY Smoking Status: Never smoker Pain Is pain an issue with your current prescribed condition?: No Personal Preferred language: Sami Patient Allergies Allergies Allergies: Allergies Penicillins (PCN) Allergy (Verified 12/08/24 09:06) Rash diazepam (From Valium) Adverse Reaction (Verified 12/08/24 09:06) Vomiting gluten Adverse Reaction (Verified 12/08/24 09:06) Diarrhea milk Adverse Reaction (Verified 12/08/24 09:06) Diarrhea Subjective Dysphagia Symptoms Reported Symptoms/Problems with: Coughing, Difficulty Swallowing Solids and Hx of Aspiration Other: Food goes down too fast Current Diet Solids Current Diet: Soft Current Diet Liquids Current Liquids: Thin Objective Dysphagia Administered by Administered by: Self Thin Liquids Administred via: Cup Oral Transit: Delay > 1 seconds Bolus clearance: fully cleared Cough: none observed/unable to assess Comments: With initial review of strategies from recent MBSS, the patient consumed sips of water w/ use of chin tuck w/ no overt s/s of aspiration. Pureed Administered via: Spoon Oral Transit: WNL Bolus clearance: significant clearance/minimal residue Cough: none observed/unable to assess Comments: Timely and good oral clearance of applesauce w/ no overt s/s of aspiration. Unable to trial solids as no solid, soft gluten free foods were available. Swallowing Impairment Contributing Factors to Swallowing Impairment: Reduced Oral Strength/Coordination/Sensation, Mastication Inefficiency, Impaired Oral- Pharyngeal Transport and Reduced Laryngeal Excursion Impact Impact on Safety & Functioning: Risk for Aspiration and Risk for Inadequate Nutrition/Hydration Diet Texture Recommendations Solids: Minced & Moist (Level 5, Mechanical Soft) Liquids: Thin (Level 0) Other: Small Bites, Small Sips, Slow Rate, Chin Tuck (All liquids), Multiple Swallows, Puree wash, Sitting upright and Remain sitting upright for 30 minutes after PO intake. Patient unable to achieve A-P transport of solids when using a liquid wash w/ chin tuck. PLATE WORKER HELPER recommended continuing w/ puree wash. Use chin tuck for all sips of liquids. PLATE WORKER HELPER educated the patient in rational for minced and moist texture recommendations due to much of solids appearing un-chewed on MBSS increasing risk for choking. PLATE WORKER HELPER recommends not attempting foods she can't thoroughly mash due to high choking risk. 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 Decreased labial ROM and strength on L side w/ retraction and pucker. X Vagus Nerve X Vagus Nerve Result: Intact XII Hypoglossal Nerve XII Hypoglossal Nerve Result: Impaired Comment:: Impaired lingual ROM, strength, coordination. Gross lingual weakness. Moderately-severely impaired lingual ROM for lateralization and retraction. Moderately impaired lingual ROM for elevation and protrusion (able to stick tongue out just between her front teeth. Swallowing Performance Scale Swallowing Performance Scale Swallowing Performance Scale Result: 5 Moderate Reference: Neuro-QoL instrument Radiation Oncology Patient FOIS Functional Oral Intake Scale Total oral diet with multiple consistencies, but requiring special preparation or compensations: Level 5 Plan Recommendations Treatment Warranted: Yes Treatment Warranted: Dysphagia Progress Prognosis: Fair Frequency Frequency: Monthly Duration: 12 Months Goals that are Established Determination:: Goals will be added/modified as deemed necessary and appropriate. Therapy will be discontinued when results of re-evaluation indicate therapy is no longer needed or lack of progress has been documented. Goal #1-5 Goal #1: The patient will consume least restrictive diet textures without overt s/s of aspiration with minimal verbal cues for use of compensatory strategies to decrease risk for aspiration. Goal #2: The patient will complete an oropharyngeal exercise program X10-15 reps, 3-5X daily with minimal verbal cues to improve strength, ROM, and coordination of swallowing mechanism (effortful, Claire). Goal #3: The patient will complete an oral motor exercise program X10-20 reps, 3-5X daily with minimal verbal cues to improve lingual ROM to promote improved bolus control and oral containment (lingual protrusion and retraction, add lingual resistance and lateralization next session). Goal #4: The patient will participate in routine MBSS/FEES to objectively assess swallow function and provide recommendations for safest, least restrictive diet and compensatory strategies to reduce risk for aspiration during and following radiation treatment. Education Patient Instruction Patient Education: Diagnosis, Treatment Plan, Goals, Safety Precautions, Diet Level and Home Exercise Program Other Education: Provided handouts for IDDSI Level 5 diet textures. Provided demonstration, return demonstration, and handouts for oropharyngeal and oral motor exercises, all of which the patient was familiar with. Person Taught: Patient Teaching Method: Discussion, Demonstration, Handout and Teach Back Response to teaching: Return Demonstration, Verbalize Understanding, Reinforcement Needed and Has Prior Knowledge
--- NOTE | 2025-08-23 16:04 | HP.SP.DC_ITS ---
ST Discharge Summary Discharged: Discharge: ST POC initiated 01/27/2025 to re-train pt in oropharyngeal exercise program after MBSS on 01/03/2025 revealed worsening dysphagia. Repeat MBSS 08/01/2025 revealed continued moderate-severe oropharyngeal dysphagia w/ recommendations for Minced and Moist Textures and Thin Liquids w/ the following safe swallowing strategies: Intermittent throat clear/cough and re-swallow, Small Bites, Small Sips, Slow Rate, Chin Tuck (All Liquids), Multiple Swallows, Alternate bites/solids and sips/liquids, Sitting upright and Remain sitting upright for 30 minutes after PO intake. Due to patient utilizing home oropharyngeal exercise program for the past 6 months and this MBSS revealing continued aspiration risk w/ liquids, DEVELOPMENT WRITER recommended patient for participation in the [facility] ([facility]), which is an intensive, systematic, exercise-based approach to dysphagia. DEVELOPMENT WRITER is recommending intensive dysphagia treatment given patient's hx of HNC. Pt politely declined recommendation for participation in [facility] at this time due to time commitment. DEVELOPMENT WRITER recommended patient continue w/ home oropharyngeal exercise program to maintain optimal swallow function; however, DEVELOPMENT WRITER also educated that given her hx of HNC s/p chemoradiation treatment that oropharyngeal exercises alone may not be sufficient to strengthen the swallowing mechanism. Pt verbalized understanding. DEVELOPMENT WRITER also educated importance for frequent oral care to decrease risk for aspiration-related illness. Pt verbalized understanding. The patient is independent w/ use of strategies for safe swallowing, as well as independent w/ home exercise program. Will recommend discharge from current ST POC as pt does not wish to pursue further treatment via [facility] at this time.
== END 2025-05-11 19:00 | disposition home or self-care (01) ==
LOC: SP 09:30
PROVIDERS: PCP Nurse Practitioner Family; Referring Provider Student in an Organized Health Care Education/Training Program; Visit Provider Student in an Organized Health Care Education/Training Program
DX: C06.9 Malignant neoplasm of mouth, unspecified (principal)
CPT/HCPCS: 92526; 92610

== ENCOUNTER → 2025-08-01 | Outpatient (CLI) | payer MEDICARE, SELFPAY ==
[2020-07-10 13:29] VITALS: BMI 21.4
--- NOTE | 2025-08-01 10:38 | SP.MBSS_ITS ---
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 From 07/24/2020 - 09/06/2020 she received adjuvant chemoradiation. She received speech therapy services intermittently during and following radiation treatment. She is currently recommended for home oropharyngeal exercise program and yearly MBSS to monitor risk for worsening dysphagia s/p radiation. The patient has participated in 5 pr evious MBSS (11/01/2020, 05/03/2021, 12/10/2022, 12/24/2023, 01/03/2025). Most recent MBSS on 01/03/2025 revealed moderate-severe oropharyngeal dysphagia with recommendations for minced and moist textures / thin liquids with use of aspiration precautions including Small Bites, Small Sips, Slow Rate, Chin Tuck (All liquids), Multiple Swallows, Alternate bites/solids and sips/liquids, Sitting upright and Remain sitting upright for 30 minutes after PO intake. Currently, she reports consuming soft solids mostly (some regular textured foods, such as occ pizza) and thin liquids with a slow rate and puree wash w/ solid foods. Patient participated in follow up OP ST after recent MBSS due to worsening swallow function as compared to previous MBSS. She has been implementing chin tuck w/ liquids since recent MBSS. She was re-trained in home oropharyngeal exercise program to strengthen swallow function and decrease risk for aspiration. The patient is recommended for repeat MBSS today primarily to re-assess aspiration risk w/ liquids. Current Diet Ordered: Easy to Chew textures / Thin liquids Dentition: Natural Teeth Mental Status: WNL Respiratory Status: Oxygenating on Room Air Penetration-Aspiration Scale Penetration-Aspiration Scale: OBJECTIVE ASSESSMENT OF SWALLOW FUNCTION (QUANTITATIVE – PER TRIAL): PENETRATION / ASPIRATION SCALE (RANKIN): 1 = does not enter airway 2 = enters airway/above vocal folds/ejected 3 = enters airway/above vocal folds/not ejected 4 = enters airway/contacts vocal folds/ejected 5 = enters airway/contacts vocal folds/not ejected 6 = enters airway/below vocal folds/ejected 7 = enters airway/below vocal folds/not ejected despite effort 8 = enters airway/below vocal folds/no effort VIDEOFLOROSCOPIC SCALE SCORE (RANKIN): Grade I = aspiration of material that has penetrated into the laryngeal vestibule, intact cough reflex Grade II = aspiration < 10 % of the bolus, intact cough reflex Grade III = aspiration of < 10 % of the bolus, reduced cough reflex or aspiration of > 10 % of the bolus, intact cough reflex Grade IV = aspiration of > 10 % of the bolus, reduced cough reflex Penetration-Aspiration Scale Score Thin Liquid via small single sip: cup: Result: 2= enter airway/above vocal folds/ejected Thin Liquid via small single sip: cup Chin tuck: Result: 2= enter airway/above vocal folds/ejected [place] Thick Liquid via small single sip: cup: Result: 2= enter airway/above vocal folds/ejected Pudding via teaspoon: Result: 1= does not enter airway Thin Liquid via small single sip: cup Trial 2: Result: 7= enters airways/below vocal folds/not ejected despite effort Thin Liquid via small single sip: cup Chin tuck Trial 2: Result: 2= enter airway/above vocal folds/ejected Thin Liquid via small single sip: cup Chin tuck Trial 3: Result: 5= enters airways/contacts vocal folds/not ejected Thin Liquid via small single sip: cup Breath hold then swallow hard (Modified supraglottic swallow): Result: 7= enters airways/below vocal folds/not ejected despite effort Thin Liquid via small single sip: cup Effortful swallow: Result: 2= enter airway/above vocal folds/ejected Thin Liquid via small single sip: cup Effortful swallow Trial 2: Result: 4= enters airway/contacts vocal folds/ejected Thin Liquid via teaspoon: Result: 4= enters airway/contacts vocal folds/ejected [place] Thick Liquid via teaspoon: Result: 2= enter airway/above vocal folds/ejected Thin Liquid via single sip: straw Chin tuck: Result: 2= enter airway/above vocal folds/ejected Oral Phase Labial Seal: Escape beyond interlabial space; no extension beyond frances border Tongue Control During Bolus Hold: Posterior escape of greater than half of bolus Bolus Transport/Lingual Motion: Repetitive/disorganized tongue motion Oral Residue: Residue collection on oral structures Pharyngeal Phase Initiation of Pharyngeal Swallow: Bolus head in pyriforms Soft Palate Elevation: Escape to nasopharynx Laryngeal Elevation: Comp. Superior move thyroid cart w/comp. apprx arytenoid cart-epig pet Anterior Hyoid Excursion: Partial anterior movement Epiglottic Movement: Complete inversion Laryngeal Vestibule Closure at Height of Swallow: Incomplete; narrow column of air/contrast in laryngeal vestibule Pharyngeal Stripping Wave: Present - complete Pharyngoesophageal Segment Opening: Complete distension and complete duration; no obstruction of flow Tongue Base Retraction: Narrow column of contrast between tongue base & post. pharyngeal wall Pharyngeal Residue: Collection of residue within or on pharyngeal structures Diagnosis/Impression Diagnosis: Moderate-severe oropharyngeal dysphagia R13.12 MBS Impressions: The oral phase is primarily marked by... -Decreased bolus control w/ posterior loss of >1/2 of liquids to the pharynx prior to swallow onset. -Continued delayed, repetitive, and decreased tongue motion for A-P transport. -Did not assess cookie today due to hx of poor mastication of cookie and mandarin oranges during previous MBSS and primary purpose of this MBSS to re- assess aspiration risk w/ liquids. The pharyngeal phase is primarily marked by... -Decreased pharyngeal motility w/ decreased TB retraction; however, complete pharyngeal stripping wave. -Decreased airway closure during the swallow due to decreased laryngeal elevation and anterior hyoid excursion. -Aspiration of thin liquids via cup w/o use of strategies and thin liquids via cup w/ use of a modified supraglottic swallow w/ reflexive throat clearing and coughing in response to aspiration. Use of chin tuck is still most effective for reducing risk for aspiration; however, the patient did have deep laryngeal penetration to the vocal folds w/ 1 trial of thin liquids via cup w/ chin tuck. Reflexive throat clear cleared majority of penetrated barium from the vocal folds and laryngeal vestibule. Recommendations Diet: Minced and Moist Textures and Thin Liquids Comment: Intermittent throat clear/cough and re-swallow Compensatory Strategies: Small Bites, Small Sips, Slow Rate, Chin Tuck (All Liquids), Multiple Swallows, Alternate bites/solids and sips/liquids, Sitting upright and Remain sitting upright for 30 minutes after PO intake Recommend Repeat Modified Barium Swallow: Yes Comment: Plan for repeat MBSS in 6-12 months to continue to monitor swallow function s/p chemoradiation, as pt is at increased risk for worsening dysphagia and aspiration risk related to mcfp effects of radiation. Need for Skilled Speech Therapy Services: No Comment: Due to patient utilizing home oropharyngeal exercise program for the past 6 months and this MBSS revealing continued aspiration risk w/ liquids, LINEN GRADER recommended patient for participation in the [facility] ([facility]), which is an intensive, systematic, exercise-based approach to dysphagia. LINEN GRADER is recommending intensive dysphagia treatment given patient's hx of HNC. Pt politely declined recommendation for participation in [facility] at this time due to time commitment. LINEN GRADER recommended patient continue w/ home oropharyngeal exercise program to maintain optimal swallow function; however, LINEN GRADER also educated that given her hx of HNC s/p chemoradiation treatment that oropharyngeal exercises alone may not be sufficient to strengthen the swallowing mechanism. Pt verbalized understanding. LINEN GRADER also educated importance for frequent oral care to decrease risk for aspiration-related illness. Pt verbalized understanding. The patient is independent w/ use of strategies for safe swallowing, as well as independent w/ home exercise program. Will recommend discharge from current POC as pt does not wish to pursue further treatment via [facility] at this time. Education Completed: 1. Described result of evaluation. and 5. Patient demonstrates recommended strategies. Status Active ST Patient: Active Contact Information [facility] Speech Therapy:: Sophia Alvarado M.A. [facility] Speech-Language Pathologist [facility] [address] [place] [address] [phone]
== END | disposition home or self-care (01) ==
PROVIDERS: PCP Nurse Practitioner Family; Referring Provider Student in an Organized Health Care Education/Training Program; Visit Provider Student in an Organized Health Care Education/Training Program
DX: C06.9 Malignant neoplasm of mouth, unspecified (principal)
CPT/HCPCS: 74230; 92611